=== PATIENT | female | born 1980 | race African-American/Black ===

== ENCOUNTER 2016-10-01 22:02 | Emergency (ER) | payer MEDICARE ==
[~2016-10-01 22:02] MED LIST: TRAM50TA2 PO; TYLE325T5 PO
[2016-10-01 23:20] LABS: BASO % 0.4 % (0.0-1.0); EOS # 0.3 K/mm3 (0.0-0.50); EOS % 2.6 % (0.0-3.0); LARGE UNSTAINED CELL # 0.2 K/mm3 (0.0-0.4); LARGE UNSTAINED CELL % 2.1 % (0.0-4.0); LYMPH # 4.4 K/mm3 (1.5-4.5); LYMPH % 38.8 % (24.0-44.0); MEAN CORPUSCULAR HEMOGLOBIN 28.1 pg (27.0-33.0); MEAN CORPUSCULAR HGB CONC 31.4 g/dl (32.0-36.5); MEAN CORPUSCULAR VOLUME 89.4 fl (80.0-96.0); MONO # 0.6 K/mm3 (0.0-0.8); MONO % 5.2 % (0.0-5.0); NEUTROPHILS # 5.5 K/mm3 (1.8-7.7); NEUTROPHILS % 50.9 % (36.0-66.0); PLATELET COUNT, AUTOMATED 395 k/mm3 (150-450); RED CELL DISTRIBUTION WIDTH 14.5 % (11.5-14.5); WHITE BLOOD COUNT 10.9 K/mm3 (4.0-10.0)
[2016-10-02] MEDS ORDERED: MORPHINE 4 MG/ML 1ML SYRINGE As Ordered ONE ×2 (00:01→01:48)
[2016-10-02] MEDS ORDERED: ONDANSETRON 4 MG ORAL DISINTEGRATING TAB (S0181) As Ordered ONE (00:01)
[2016-10-02 00:11] LABS: CONTROL LINE HCG INT CTR LINE PRESENT
[2016-10-02 00:21] LABS: ANION GAP 5 MEQ/L (8-16); BLOOD UREA NITROGEN 11 MG/DL (7-18); CALCIUM LEVEL 8.6 MG/DL (8.5-10.1); CARBON DIOXIDE LEVEL 28 MEQ/L (21-32); CHLORIDE LEVEL 104 MEQ/L (98-107); CREATININE FOR GFR 0.68 MG/DL (0.55-1.02); GLOMERULAR FILTRATION RATE > 60.0 (>60); GLUCOSE, FASTING 83 MG/DL (70-105); POTASSIUM SERUM 3.6 MEQ/L (3.5-5.1); SODIUM LEVEL 137 MEQ/L (136-145)
[2016-10-02] MEDS ORDERED: ASPIRIN 81 MG CHEW TABLET As Ordered ONE (00:55)
[2016-10-02 00:58] LABS: ALBUMIN/GLOBULIN RATIO 0.59 (1.00-1.93); ALKALINE PHOSPHATASE 104 U/L (45-117); ALT/SGPT 16 U/L (12-78); AST/SGOT 12 U/L (15-37); BILIRUBIN,DIRECT < 0.1 MG/DL (0.0-0.2); BILIRUBIN,TOTAL 0.1 MG/DL (0.2-1.0); TOTAL PROTEIN 8.1 GM/DL (6.4-8.2)
--- NOTE | 2016-10-02 05:52 | EDDOCDS ---
Physician Documentation [facility] Name: Mira Schroeder Age: 35 yrs Sex: Female : 1980 Arrival Date: 10/01/2016 Time: 22:02 Bed 12 Private MD: Nabor Polanco G Disposition: 10/02/16 05:38 Discharged to Home/Self Care. Impression: Chest pain, unspecified. - Condition is Stable. - Discharge Instructions: Angina Pectoris, Nonspecific Chest Pain, Chest Wall Pain, Nonspecific Chest Pain, [id number]. - Medication Reconciliation, Local Pharmacy Hours form. - Follow up: Lawrence Moreno; When: Call to arrange an appointment; Reason: To establish care. - Problem is an acute exacerbation. - Symptoms have improved. Historical: - Allergies: Diamox; - Home Meds: 1. Ultram 50 mg Oral tab 1 tab as needed (Last dose: 10/01/2016 08:00) 2. Linzess 290 mcg oral cap 1 cap once daily (Last dose: 10/01/2016 08:00) 3. Chantix 1 mg Oral tab 1 tab 2 times per day - PMHx: NH; nerve damage; occipital neuralgia; Pseudo Tumor Cerebri; Constipation, Chronic; - PSHx: Spinal Tap; nerve decompression; - Social history: Smoking status: Patient uses tobacco products, light tobacco smoker. No barriers to communication noted, The patient speaks fluent Zimbabwean. - Family history: Mother has/had cardiac disorder, hypertension. - : The pt / caregiver states he / she is not on anticoagulants. Home medication list is obtained from the patient. - Exposure Risk Screening:: None identified. 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 4 in. (162.56 cm) (R); Pain 10/10; 23:12 BP 140 / 82 (auto/); mlc 23:14 Pulse 92 MON; Pulse Ox 96% ; mlc 23:26 Pulse 92 MON; Pulse Ox 99% ; mlc 23:26 BP 136 / 76 (auto/); mlc 23:41 Pulse 94 MON; Pulse Ox 99% ; mlc 23:41 BP 136 / 74 (auto/); mlc 23:56 BP 140 / 77 (auto/); mlc 23:56 Pulse 98 MON; Pulse Ox 99% ; mlc 10/02 00:08 Pulse 96 MON; Pulse Ox 98% ; mlc 00:24 Pulse 98 MON; Pulse Ox 99% ; mlc 00:24 BP 119 / 82 (auto/); mlc 00:41 BP 117 / 82 (auto/); mlc 00:41 Pulse 106 MON; Pulse Ox 99% ; mlc 00:56 Pulse 102 MON; Pulse Ox 98% ; mlc 01:11 BP 122 / 74 (auto/); mlc 01:11 Pulse 102 MON; Pulse Ox 97% ; mlc 01:41 BP 137 / 70 (auto/); mlc 01:41 Pulse 106 MON; Pulse Ox 97% ; mlc 01:43 Pulse 110 MON; Pulse Ox 99% ; mlc 02:11 BP 114 / 55 (auto/); mlc 02:11 Pulse 114 MON; Pulse Ox 96% ; mlc 02:34 BP 114 / 55; Pulse 106; Resp 16; Pain 0/10; mlc 02:41 BP 116 / 55 (auto/); mlc 02:41 Pulse 100 MON; Pulse Ox 97% ; mlc 03:11 BP 105 / 58 (auto/); mlc 03:14 Pulse 104 MON; Pulse Ox 92% ; mlc 03:41 BP 110 / 70 (auto/); mlc 03:41 Pulse 98 MON; Pulse Ox 92% ; mlc 04:11 BP 119 / 58 (auto/); mlc 04:11 Pulse 102 MON; Pulse Ox 93% ; mlc 04:41 BP 109 / 61 (auto/); mlc 04:41 Pulse 94 MON; Pulse Ox 95% ; mlc 04:58 Pulse 96 MON; Pulse Ox 95% ; mlc 05:11 BP 112 / 60 (auto/); mlc 05:12 Pulse 98 MON; Pulse Ox 99% ; mlc 05:48 BP 118 / 70; Pulse 92; Resp 18; Temp 98.1; Pulse Ox 96% ; Pain 0/10; mlc 10/01 22:03 Body Mass Index 36.05 (95.25 kg, 162.56 cm) gr2 MDM: 10/01 22:08 ECG WITH READING ER PHYS+CARDIAG ordered. EDMS 22:53 Director Personal/Pulse Ox/q 30 min VS ordered. mm11 22:53 IV Saline Lock ordered. mm11 22:53 Rhythm Strip to chart ordered. mm11 22:53 Undress patient appropriately for examination ordered. mm11 22:54 Basic Metabolic Profile Ordered. EDMS 22:54 CBC with Diff Ordered. EDMS 22:54 Cardiac Injury Profile Ordered. EDMS 22:54 D-Dimer Quant Ordered. EDMS 22:54 Troponin Ordered. EDMS 22:54 Chest, 2 View (pa\E\lat) Ordered. EDMS 22:55 HCG,Serum Qualitative Ordered. EDMS 23:03 Misc Blind Eyeletter Order ordered. mm11 23:03 Misc Blind Eyeletter Order complete. ml3 23:04 The patient was assigned to Observation Status due to uncertainty of mm11 diagnosis/disposition, and remained under my care. 23:57 CBC with Diff Reviewed. mm11 23:57 D-Dimer Quant Reviewed. mm11 23:58 morphine 4 mg IVP every 30 minutes; Document pain score/vitals after each dose (Hold if mm11 SBP < 90mmHg) x2 ordered. 23:58 Ondansetron 4 mg IVP once ordered. mm11 23:59 Ondansetron ODT Oral Disintegrating Tablet 4 mg PO once ordered. mm11 23:59 morphine 4 mg IM once ordered. mm11 0218 00:32 Basic Metabolic Profile Reviewed. mm11 00:32 Cardiac Injury Profile Reviewed. mm11 00:32 Troponin Reviewed. mm11 00:32 HCG,Serum Qualitative Reviewed. mm11 00:34 Aspirin 324 mg PO once ordered. mm11 01:06 Financial registration complete. hs2 01:18 Basic Metabolic Profile Reviewed. mm11 01:18 LIVER PROFILE Reviewed. mm11 01:18 Cardiac Injury Profile Reviewed. mm11 01:18 Troponin Reviewed. mm11 01:18 LIPASE Reviewed. mm11 01:44 morphine 4 mg IVP every 30 minutes; Document pain score/vitals after each dose (Hold if mm11 SBP < 90mmHg) x2 ordered. 01:55 Redraw CIP &Troponin (put time in details section) ordered. mm11 01:55 Repeat EKG (put time details section) ordered. mm11 01:58 Repeat EKG (put time details section) complete. ml3 01:58 Redraw CIP &Troponin (put time in details section) complete. ml3 01:59 CARDIAC MARKER PANEL Ordered. EDMS 02:00 ECG WITH READING ER PHYS ordered. EDMS 02:17 [facility] Payment Agreement was scanned into [employer] and attached to record. [facility] 05:30 CARDIAC MARKER PANEL Reviewed. mm11 Administered Medications: 10/01 23:58 Not Given (Other Intervention Used): morphine 4 mg IVP every 30 minutes; Document pain mm11 score/vitals after each dose (Hold if SBP < 90mmHg) x2 23:58 Not Given (Other Intervention Used): Ondansetron 4 mg IVP once mm11 10/02 00:08 Drug: Ondansetron ODT 4 mg [ondansetron 4 mg disintegrating tablet (1 tabs)] Route: PO; [facility] 00:08 Drug: morphine 4 mg [morphine 4 mg/mL intravenous cartridge (1 mL)] Route: IM; Site: [facility] left deltoid; 00:57 Drug: Aspirin 324 mg [aspirin 81 mg chewable tablet (4 tabs)] Route: PO; [facility] 01:53 Drug: morphine 4 mg [morphine 4 mg/mL intravenous cartridge (1 mL)] Route: IVP; Site: [facility] left hand; 02:34 Follow up: BP 114 / 55; Pulse 106 bpm; Resp 16 bpm; Pain 0/10 Adult; Response: Pain is mlc resolved Signatures: Dispatcher [employer] EDMS Carine Hendricks RN RN [facility] Aldair Silva, Supervisor [employer] ml3 Edis Kaur, DO DO mm11 Pita Joe RN RN [facility] Laurel Hinton [facility] Rea Hernandez, Reg Reg hs2 The chart was reviewed and I authenticate all verbal orders and agree with the evaluation and treatment provided.Corrections: (The following items were deleted from the chart) 00:47 00:34 LIPASE+LAB ordered. EDMS EDMS 00:47 00:34 LIVER PROFILE+LAB ordered. EDMS EDMS Attachments: 02:17 [facility] Payment Agreement [facility] MTDD
--- NOTE | 2016-10-02 05:52 | EDDOCDS ---
Nurse's Notes [facility] Name: Mira Schroeder Age: 35 yrs Sex: Female : 1980 Arrival Date: 10/01/2016 Time: 22:02 Bed 12 Private MD: Nabor Polanco G Diagnosis: Chest pain, unspecified Presentation: 10/01 22:07 Red Flag criteria, patient assessed and taken directly to a bed. cz 22:08 Presenting complaint: Patient states: Chest pain that started while pt was at work. mcp Pain in center of chest and radiates down left arm--tightness, sharp pain. Aspirin was not taken prior to arrival. Adult Sepsis Screening: The patient does not have new or worsening altered mentation. Patient's respiratory rate is less than 22. Systolic blood pressure is greater than 100. Patient has a qSOFA score of 0- Negative Sepsis Screen. Suicide/Homicide risk assessment- the patient denies having any suicidal and/or homicidal ideations and does not present with any other emotional, behavioral or mental health complaints. Status: Patient is not a legal services manager or dependent. Transition of care: patient was not received from another setting of care. 22:08 Acuity: YANETH Level 2 [facility] 22:08 Method Of Arrival: Walkin/Carried/Asstd [facility] Triage Assessment: 22:12 General: Appears uncomfortable, Behavior is cooperative. Pain: Location: chest Pain mcp currently is 10 out of 10 on a pain scale. HIV screening NA for this visit Offered previously. Neurological: Reports dizziness. Cardiovascular: Chest pain is described as severe, quality is sharp radiates to left arm(s) episodes are continuous began 2 hours prior to arrival. Respiratory: Airway is patent Respiratory effort is even, unlabored. Derm: Skin is normal. 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 Ultram 50 mg Oral tab 1 tab as needed (Last dose: 10/01/2016 08:00) 2. Linzess 290 mcg oral cap 1 cap once daily (Last dose: 10/01/2016 08:00) 3. Chantix 1 mg Oral tab 1 tab 2 times per day - PMHx: OR; nerve damage; occipital neuralgia; Pseudo Tumor Cerebri; Constipation, Chronic; - PSHx: Spinal Tap; nerve decompression; - Social history: Smoking status: Patient uses tobacco products, light tobacco smoker. No barriers to communication noted, The patient speaks fluent Albanian. - Family history: Mother has/had cardiac disorder, hypertension. - : The pt / caregiver states he / she is not on anticoagulants. Home medication list is obtained from the patient. - Exposure Risk Screening:: None identified. Screenin:14 Screening information is obtained from the patient. Fall risk: No risks identified. mlc Assistance ADL's: requires no assistance with activities of daily living. Abuse/DV Screen: The patient / caregiver reports he/she is: not in a situation that causes fear, pain or injury. Nutritional screening: No deficits noted. Advance Directives: Currently, there is no health care proxy. There is no Power of Softball Core Molder. home support is adequate. Assessment: 22:20 General: Appears in no apparent distress, comfortable, Behavior is cooperative. mlc Neurological: Level of Consciousness is awake, alert, obeys commands, Oriented to person, place, time. Cardiovascular: Capillary refill < 3 seconds Heart tones S1 S2 present Rhythm is sinus rhythm. Respiratory: Airway is patent Respiratory effort is even, unlabored, Respiratory pattern is regular, Breath sounds are clear bilaterally. Derm: Skin is pink, warm & dry. 22:20 Reassessment: Patient appears in no apparent distress at this time. Patient states mlc symptoms have not improved. unable to get IV access at this time. . 18 00:08 Reassessment: Patient appears in no apparent distress at this time. pt c/o headache, mlc chest pain and right ear pain. Dr. Kaur made aware. pt medicated per order. lights dimmed for comfort. . 00:34 Reassessment: Patient appears in no apparent distress at this time. Patient states mlc feeling better. 00:57 Reassessment: Patient appears in no apparent distress at this time. pt medicated per mlc order. pt eating Diana Orta, Dr. Kaur made aware. resp easy/unlabored. . 01:44 Reassessment: Patient appears in no apparent distress at this time. pt rated 8/10 in mlc chest. resp easy/unlabored. pt resting comfortably, lights dimmed for comfort. . 01:54 Reassessment: Patient appears in no apparent distress at this time. pt medicated per mlc order. 02:35 Reassessment: Patient appears in no apparent distress at this time. Patient denies pain mlc at this time. pt resting comfortably, resp easy/unlabored. . 03:37 General: Appears in no apparent distress, comfortable, to be sleeping. Respiratory: mlc Airway is patent Respiratory effort is even, unlabored, Respiratory pattern is regular. 05:00 Reassessment: Patient appears in no apparent distress at this time. Patient denies pain mlc at this time. pt offers no complaints. resp easy/unlabored. . Cardiovascular: Rhythm is sinus rhythm. 05:48 General: Appears in no apparent distress, comfortable, Behavior is cooperative. Pain: mlc Denies pain. Neurological: Level of Consciousness is awake, alert, Oriented to person, place, time. Respiratory: Airway is patent Respiratory effort is even, unlabored, Respiratory pattern is regular. Derm: Skin is pink, warm & dry. Vital Signs: 10/01 22:03 BP 133 / 81; Pulse 107; Resp 18 S; Temp 97.9(O); Pulse Ox 100% ; Weight 95.25 kg (R); gr2 Height 5 ft. 4 in. (162.56 cm) (R); Pain 10/10; 23:12 BP 140 / 82 (auto/); mlc 23:14 Pulse 92 MON; Pulse Ox 96% ; mlc 23:26 Pulse 92 MON; Pulse Ox 99% ; mlc 23:26 BP 136 / 76 (auto/); mlc 23:41 Pulse 94 MON; Pulse Ox 99% ; mlc 23:41 BP 136 / 74 (auto/); mlc 23:56 BP 140 / 77 (auto/); mlc 23:56 Pulse 98 MON; Pulse Ox 99% ; mlc 10/02 00:08 Pulse 96 MON; Pulse Ox 98% ; mlc 00:24 Pulse 98 MON; Pulse Ox 99% ; mlc 00:24 BP 119 / 82 (auto/); mlc 00:41 BP 117 / 82 (auto/); mlc 00:41 Pulse 106 MON; Pulse Ox 99% ; mlc 00:56 Pulse 102 MON; Pulse Ox 98% ; mlc 01:11 BP 122 / 74 (auto/); mlc 01:11 Pulse 102 MON; Pulse Ox 97% ; mlc 01:41 BP 137 / 70 (auto/); mlc 01:41 Pulse 106 MON; Pulse Ox 97% ; mlc 01:43 Pulse 110 MON; Pulse Ox 99% ; mlc 02:11 BP 114 / 55 (auto/); mlc 02:11 Pulse 114 MON; Pulse Ox 96% ; mlc 02:34 BP 114 / 55; Pulse 106; Resp 16; Pain 0/10; mlc 02:41 BP 116 / 55 (auto/); mlc 02:41 Pulse 100 MON; Pulse Ox 97% ; mlc 03:11 BP 105 / 58 (auto/); mlc 03:14 Pulse 104 MON; Pulse Ox 92% ; mlc 03:41 BP 110 / 70 (auto/); mlc 03:41 Pulse 98 MON; Pulse Ox 92% ; mlc 04:11 BP 119 / 58 (auto/); mlc 04:11 Pulse 102 MON; Pulse Ox 93% ; mlc 04:41 BP 109 / 61 (auto/); mlc 04:41 Pulse 94 MON; Pulse Ox 95% ; mlc 04:58 Pulse 96 MON; Pulse Ox 95% ; mlc 05:11 BP 112 / 60 (auto/); mlc 05:12 Pulse 98 MON; Pulse Ox 99% ; mlc 05:48 BP 118 / 70; Pulse 92; Resp 18; Temp 98.1; Pulse Ox 96% ; Pain 0/10; mlc 10/01 22:03 Body Mass Index 36.05 (95.25 kg, 162.56 cm) gr2 Vitals: 10/01 22:03 Log In Time: October 01, 2016 at 22:03. RN notified that patient meets Red Flag gr2 criteria. ED Course: 22:03 Patient visited by Rossy Aj. gr2 22:03 Nabor Polanco is Private Physician. gr2 22:03 Patient moved to Waiting gr2 22:06 Patient visited by Rossy Aj. gr2 22:06 Nia Lopez,RN is Primary Nurse. cz 22:06 Margy Augustine,RN is Primary Nurse. cz 22:06 Pita Joe,IRWIN is Primary Nurse. cz 22:06 Patient moved to 12 cz 22:07 Edis Kaur DO is Attending Physician. mm11 22:07 Patient visited by Eids Kaur DO. mm11 22:10 Triage Initiated mcp 22:14 Patient visited by Carine Hendricks RN. mcp 22:29 EKG done. (by ED staff). Reviewed by Edis Kaur DO. jmv 22:38 Primary Nurse role handed off by Nia Lopez RN kb5 22:52 Patient visited by Edis Kaur DO. mm11 23:10 Missed attempts: 20 gauge X 1 in left antecubital area, 22 gauge in right hand. aug 23:13 HCG,Serum Qualitative Sent. mlc 23:13 Basic Metabolic Profile Sent. mlc 23:13 CBC with Diff Sent. mlc 23:13 Cardiac Injury Profile Sent. mlc 23:13 D-Dimer Quant Sent. mlc 23:13 Troponin Sent. mlc 23:14 The patient / caregiver is instructed regarding the plan of care and ED course. Cardiac mlc monitor on. Pulse ox on. NIBP on. 23:17 Patient visited by Pita Joe RN. mlc 10/02 00:09 Patient visited by Pita Joe RN. mlc 00:10 Patient visited by Pita Joe RN. mlc 00:18 Inserted saline lock: 22 gauge in left hand The patient tolerated the procedure well. mlc by Jung Temple RN powersaw supervisor. 00:19 Patient visited by Pita Joe RN. mlc 00:58 Patient visited by Pita Joe RN. mlc 01:44 Patient visited by Edis Kaur DO. mm11 01:45 Patient visited by Pita Joe RN. mlc 01:54 Patient visited by Pita Joe RN. mlc 02:17 [facility] Payment Agreement was scanned into [employer] and attached to record. [facility] 02:29 Patient visited by Edis Kaur DO. mm11 02:35 Patient visited by Pita Joe RN. mlc 03:22 Primary Nurse role handed off by Margy Augustine,IRWIN cz 03:38 Patient visited by Pita oJe RN. mlc 05:01 Patient visited by Pita Joe RN. mlc 05:01 EKG done. (by ED staff). Reviewed by Edis Kaur DO. mlc 05:37 Patient visited by Edis Kaur DO. mm11 05:37 Lawrence Moreno is Referral Physician. mm11 05:48 Discontinued IV lock intact, bleeding controlled, pressure dressing applied, No mlc redness/swelling at site. No procedures done that require assistance. Administered Medications: 10/01 23:58 Not Given (Other Intervention Used): morphine 4 mg IVP every 30 minutes; Document pain mm11 score/vitals after each dose (Hold if SBP < 90mmHg) x2 23:58 Not Given (Other Intervention Used): Ondansetron 4 mg IVP once mm11 10/02 00:08 Drug: Ondansetron ODT 4 mg [ondansetron 4 mg disintegrating tablet (1 tabs)] Route: PO; [facility] 00:08 Drug: morphine 4 mg [morphine 4 mg/mL intravenous cartridge (1 mL)] Route: IM; Site: [facility] left deltoid; 00:57 Drug: Aspirin 324 mg [aspirin 81 mg chewable tablet (4 tabs)] Route: PO; [facility] 01:53 Drug: morphine 4 mg [morphine 4 mg/mL intravenous cartridge (1 mL)] Route: IVP; Site: [facility] left hand; 02:34 Follow up: BP 114 / 55; Pulse 106 bpm; Resp 16 bpm; Pain 0/10 Adult; Response: Pain is mlc resolved Order Results: Lab Order: Basic Metabolic Profile; SPEC'M 10/01/16 23:47 Test: GLUCOSE, FASTING; Value: 83; Range: 70-105; Units: MG/DL; Status: F Test: BLOOD UREA NITROGEN; Value: 11; Range: 7-18; Units: MG/DL; Status: F Test: CREATININE FOR GFR; Value: 0.68; Range: 0.55-1.02; Units: MG/DL; Status: F Test: GLOMERULAR FILTRATION RATE; Value: > 60.0; Range: >60; Status: F Test: SODIUM LEVEL; Value: 137; Range: 136-145; Units: MEQ/L; Status: F Test: POTASSIUM SERUM; Value: 3.6; Range: 3.5-5.1; Units: MEQ/L; Status: F Test: CHLORIDE LEVEL; Value: 104; Range: 98-107; Units: MEQ/L; Status: F Test: CARBON DIOXIDE LEVEL; Value: 28; Range: 21-32; Units: MEQ/L; Status: F Test: ANION GAP; Value: 5; Range: 8-16; Abnormal: Below low normal; Units: MEQ/L; Status: F Test: CALCIUM LEVEL; Value: 8.6; Range: 8.5-10.1; Units: MG/DL; Status: F Test Note: ; Units are mL/min/1.73 m2 Chronic Kidney Disease Staging per NKF: Stage I & II GFR >=60 Normal to Mildly Decreased Stage III GFR 30-59 Moderately Decreased Stage IV GFR 15-29 Severely Decreased Stage V GFR <15 Very Little GFR Left ESRD GFR <15 on BOROUGH COORDINATOR Lab Order: CBC with Diff; CHARU 10/01/16 23:11 Test: WHITE BLOOD COUNT; Value: 10.9; Range: 4.0-10.0; Abnormal: Above high normal; Units: K/mm3; Status: F Test: RED BLOOD COUNT; Value: 4.65; Range: 4.00-5.40; Units: M/mm3; Status: F Test: HEMOGLOBIN; Value: 13.0; Range: 12.0-16.0; Units: g/dl; Status: F Test: HEMATOCRIT; Value: 41.6; Range: 36.0-47.0; Units: %; Status: F Test: MEAN CORPUSCULAR VOLUME; Value: 89.4; Range: 80.0-96.0; Units: fl; Status: F Test: MEAN CORPUSCULAR HEMOGLOBIN; Value: 28.1; Range: 27.0-33.0; Units: pg; Status: F Test: MEAN CORPUSCULAR HGB CONC; Value: 31.4; Range: 32.0-36.5; Abnormal: Below low normal; Units: g/dl; Status: F Test: RED CELL DISTRIBUTION WIDTH; Value: 14.5; Range: 11.5-14.5; Units: %; Status: F Test: PLATELET COUNT, AUTOMATED; Value: 395; Range: 150-450; Units: k/mm3; Status: F Test: NEUTROPHILS %; Value: 50.9; Range: 36.0-66.0; Units: %; Status: F Test: LYMPH %; Value: 38.8; Range: 24.0-44.0; Units: %; Status: F Test: MONO %; Value: 5.2; Range: 0.0-5.0; Abnormal: Above high normal; Units: %; Status: F Test: EOS %; Value: 2.6; Range: 0.0-3.0; Units: %; Status: F Test: BASO %; Value: 0.4; Range: 0.0-1.0; Units: %; Status: F Test: LARGE UNSTAINED CELL %; Value: 2.1; Range: 0.0-4.0; Units: %; Status: F Test: NEUTROPHILS #; Value: 5.5; Range: 1.8-7.7; Units: K/mm3; Status: F Test: LYMPH #; Value: 4.4; Range: 1.5-4.5; Units: K/mm3; Status: F Test: MONO #; Value: 0.6; Range: 0.0-0.8; Units: K/mm3; Status: F Test: EOS #; Value: 0.3; Range: 0.0-0.50; Units: K/mm3; Status: F Test: BASO #; Value: 0.0; Range: 0.0-0.2; Units: K/mm3; Status: F Test: LARGE UNSTAINED CELL #; Value: 0.2; Range: 0.0-0.4; Units: K/mm3; Status: F Lab Order: Cardiac Injury Profile; [facility] 23:47 Test: CPK CREATINE PHOSPHOKINASE; Value: 128; Range: 26-192; Units: U/L; Status: F Test: CK-MB VALUE MASS; Value: 1.4; Range: 0.0-3.6; Units: NG/ML; Status: F Test: MB/CK RELATIVE INDEX; Value: 1.09; Range: < OR =4; Status: F Test Note: ; DIAGNOSIS CRITERIA MMB ng/ml Relative Index (RI) NON-AMI < or = 5 N/A MORGAN ZONE > 5 < or = 4 AMI > 5 > 4 Lab Order: D-Dimer Quant; [facility] 23:11 Test: D-DIMER QUANT; Value: 458.9; Range: <500; Units: ng/ml; Status: F Lab Order: Troponin; [facility]10/[facility] 23:47 Test: TROPONIN I; Value: < 0.02; Range: < 0.10; Units: NG/ML; Status: F Test Note: ; Troponin I Reference Interval for [employer] LOCI: 99th Percentile= 0.00-0.045 ng/ml Risk Stratification: <= 0.10 ng/ml Decreased Risk for Adverse Clinical Events. 0.10-1.50 ng/ml Increased Risk for Adverse Clinical Events. Evaluation of additional criterion and/or repeat testing in 2-6 hours is suggested to rule out myocardial damage. >= 1.50 ng/ml Indicative of Myocardial Injury. Lab Order: HCG,Serum Qualitative; 10/01/16 23:47 Test: HCG, SERUM QUALITATIVE; Value: NEGATIVE; Range: NEGATIVE; Status: F Lab Order: LIVER PROFILE; 10/01/16 23:47 Test: AST/SGOT; Value: 12; Range: 15-37; Abnormal: Below low normal; Units: U/L; Status: F Test: ALT/SGPT; Value: 16; Range: 12-78; Units: U/L; Status: F Test: ALKALINE PHOSPHATASE; Value: 104; Range: 45-117; Units: U/L; Status: F Test: BILIRUBIN,TOTAL; Value: 0.1; Range: 0.2-1.0; Abnormal: Below low normal; Units: MG/DL; Status: F Test: BILIRUBIN,DIRECT; Value: < 0.1; Range: 0.0-0.2; Units: MG/DL; Status: F Test: TOTAL PROTEIN; Value: 8.1; Range: 6.4-8.2; Units: GM/DL; Status: F Test: ALBUMIN; Value: 3.0; Range: 3.2-5.2; Abnormal: Below low normal; Units: GM/DL; Status: F Test: ALBUMIN/GLOBULIN RATIO; Value: 0.59; Range: 1.00-1.93; Abnormal: Below low normal; Status: F Lab Order: LIPASE; 10/01/16 23:47 Test: LIPASE; Value: 94; Range: 73-393; Units: U/L; Status: F Lab Order: CARDIAC MARKER PANEL; [facility] 04:52 Test: CPK CREATINE PHOSPHOKINASE; Value: 144; Range: 26-192; Units: U/L; Status: F Test: CK-MB VALUE MASS; Value: 1.0; Range: 0.0-3.6; Units: NG/ML; Status: F Test: MB/CK RELATIVE INDEX; Value: 0.69; Range: < OR =4; Status: F Test: TROPONIN I; Value: < 0.02; Range: < 0.10; Units: NG/ML; Status: F Test Note: ; DIAGNOSIS CRITERIA MMB ng/ml Relative Index (RI) NON-AMI < or = 5 N/A MORGAN ZONE > 5 < or = 4 AMI > 5 > 4 Outcome: 05:38 Discharge ordered by Provider. mm11 05:48 Discharge Assessment: Patient awake, alert and oriented x 3. No cognitive and/or mlc functional deficits noted. Patient verbalized understanding of disposition instructions. patient administered narcotics - yes. Pt provided with safe discharge. The following High Risk Discharge criteria are identified: None. Discharged to home ambulatory, with significant other. Condition: good Condition: stable Condition: improved. Discharge instructions given to patient, Instructed on discharge instructions, follow up and referral plans. Demonstrated understanding of instructions, Pt was receptive of discharge instructions/ teaching. No special radiology studies were completed. Property sent home with patient. 05:51 Patient left the ED. mlc Signatures: Brunilda Hernández, RN Carine Sharpe, RN Arpan Mays mcp, RN RN cz Bancroft, Kristopher, MASTER CONTROL ENGINEER MASTER CONTROL ENGINEER sandy5 Edis Kaur, DO mm11 Rossy Aj gr2 Pita Joe,IRWIN RN Laurel Jackson Crystal, MASTER CONTROL ENGINEER MASTER CONTROL ENGINEER cln Rui Bran, MASTER CONTROL ENGINEER MASTER CONTROL ENGINEER jmv Corrections: (The following items were deleted from the chart) 00:47 00:37 LIVER PROFILE+LAB sent. cln EDMS 00:47 00:37 LIPASE+LAB sent. cln EDMS 05:01 03:41 EKG done. (by ED staff). Reviewed by Edis Kaur DO mlc mlc MTDD
--- NOTE | 2016-10-02 08:10 | REP ---
Clinical: Chest pain . Comparison: None . Technique: PA and lateral. Findings: The mediastinum and cardiac silhouette are normal. The lung reddy are clear and without acute consolidation, effusion, or pneumothorax. The skeletal structures are intact and normal. Impression: 1. No acute cardiopulmonary process. Signed by Mason Rene MD 10/02/2016 08:02 A
--- NOTE | 2016-10-02 19:37 | ECGEPIP ---
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
--- NOTE | 2016-10-02 19:41 | ECGEPIP ---
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
--- NOTE | 2016-10-04 06:52 | EDDOCDS ---
Physician Documentation [facility] Name: Mira Schroeder Age: 35 yrs Sex: Female : 1980 Arrival Date: 10/01/2016 Time: 22:02 Bed 12 Private MD: Nabor Polanco G Disposition: 10/02/16 05:38 Discharged to Home/Self Care. Impression: Chest pain, unspecified. - Condition is Stable. - Discharge Instructions: Angina Pectoris, Nonspecific Chest Pain, Chest Wall Pain, Nonspecific Chest Pain, [id number]. - Medication Reconciliation, Local Pharmacy Hours form. - Follow up: Lawrence Moreno; When: Call to arrange an appointment; Reason: To establish care. - Problem is an acute exacerbation. - Symptoms have improved. Historical: - Allergies: Diamox; - Home Meds: 1. Ultram 50 mg Oral tab 1 tab as needed (Last dose: 10/01/2016 08:00) 2. Linzess 290 mcg oral cap 1 cap once daily (Last dose: 10/01/2016 08:00) 3. Chantix 1 mg Oral tab 1 tab 2 times per day - PMHx: AR; nerve damage; occipital neuralgia; Pseudo Tumor Cerebri; Constipation, Chronic; - PSHx: Spinal Tap; nerve decompression; - Social history: Smoking status: Patient uses tobacco products, light tobacco smoker. No barriers to communication noted, The patient speaks fluent Bruneian. - Family history: Mother has/had cardiac disorder, hypertension. - : The pt / caregiver states he / she is not on anticoagulants. Home medication list is obtained from the patient. - Exposure Risk Screening:: None identified. 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 4 in. (162.56 cm) (R); Pain 10/10; 23:12 BP 140 / 82 (auto/); mlc 23:14 Pulse 92 MON; Pulse Ox 96% ; mlc 23:26 Pulse 92 MON; Pulse Ox 99% ; mlc 23:26 BP 136 / 76 (auto/); mlc 23:41 Pulse 94 MON; Pulse Ox 99% ; mlc 23:41 BP 136 / 74 (auto/); mlc 23:56 BP 140 / 77 (auto/); mlc 23:56 Pulse 98 MON; Pulse Ox 99% ; mlc 10/02 00:08 Pulse 96 MON; Pulse Ox 98% ; mlc 00:24 Pulse 98 MON; Pulse Ox 99% ; mlc 00:24 BP 119 / 82 (auto/); mlc 00:41 BP 117 / 82 (auto/); mlc 00:41 Pulse 106 MON; Pulse Ox 99% ; mlc 00:56 Pulse 102 MON; Pulse Ox 98% ; mlc 01:11 BP 122 / 74 (auto/); mlc 01:11 Pulse 102 MON; Pulse Ox 97% ; mlc 01:41 BP 137 / 70 (auto/); mlc 01:41 Pulse 106 MON; Pulse Ox 97% ; mlc 01:43 Pulse 110 MON; Pulse Ox 99% ; mlc 02:11 BP 114 / 55 (auto/); mlc 02:11 Pulse 114 MON; Pulse Ox 96% ; mlc 02:34 BP 114 / 55; Pulse 106; Resp 16; Pain 0/10; mlc 02:41 BP 116 / 55 (auto/); mlc 02:41 Pulse 100 MON; Pulse Ox 97% ; mlc 03:11 BP 105 / 58 (auto/); mlc 03:14 Pulse 104 MON; Pulse Ox 92% ; mlc 03:41 BP 110 / 70 (auto/); mlc 03:41 Pulse 98 MON; Pulse Ox 92% ; mlc 04:11 BP 119 / 58 (auto/); mlc 04:11 Pulse 102 MON; Pulse Ox 93% ; mlc 04:41 BP 109 / 61 (auto/); mlc 04:41 Pulse 94 MON; Pulse Ox 95% ; mlc 04:58 Pulse 96 MON; Pulse Ox 95% ; mlc 05:11 BP 112 / 60 (auto/); mlc 05:12 Pulse 98 MON; Pulse Ox 99% ; mlc 05:48 BP 118 / 70; Pulse 92; Resp 18; Temp 98.1; Pulse Ox 96% ; Pain 0/10; mlc 10/01 22:03 Body Mass Index 36.05 (95.25 kg, 162.56 cm) gr2 MDM: 10/01 22:08 ECG WITH READING ER PHYS+CARDIAG ordered. EDMS 22:53 Abrasives Sales Representative/Pulse Ox/q 30 min VS ordered. mm11 22:53 IV Saline Lock ordered. mm11 22:53 Rhythm Strip to chart ordered. mm11 22:53 Undress patient appropriately for examination ordered. mm11 22:54 Basic Metabolic Profile Ordered. EDMS 22:54 CBC with Diff Ordered. EDMS 22:54 Cardiac Injury Profile Ordered. EDMS 22:54 D-Dimer Quant Ordered. EDMS 22:54 Troponin Ordered. EDMS 22:54 Chest, 2 View (pa\E\lat) Ordered. EDMS 22:55 HCG,Serum Qualitative Ordered. EDMS 23:03 Misc Grades 9 Through 12 Teacher Order ordered. mm11 23:03 Misc Grades 9 Through 12 Teacher Order complete. ml3 23:04 The patient was assigned to Observation Status due to uncertainty of mm11 diagnosis/disposition, and remained under my care. 23:57 CBC with Diff Reviewed. mm11 23:57 D-Dimer Quant Reviewed. mm11 23:58 morphine 4 mg IVP every 30 minutes; Document pain score/vitals after each dose (Hold if mm11 SBP < 90mmHg) x2 ordered. 23:58 Ondansetron 4 mg IVP once ordered. mm11 23:59 Ondansetron ODT Oral Disintegrating Tablet 4 mg PO once ordered. mm11 23:59 morphine 4 mg IM once ordered. mm11 0218 00:32 Basic Metabolic Profile Reviewed. mm11 00:32 Cardiac Injury Profile Reviewed. mm11 00:32 Troponin Reviewed. mm11 00:32 HCG,Serum Qualitative Reviewed. mm11 00:34 Aspirin 324 mg PO once ordered. mm11 01:06 Financial registration complete. hs2 01:18 Basic Metabolic Profile Reviewed. mm11 01:18 LIVER PROFILE Reviewed. mm11 01:18 Cardiac Injury Profile Reviewed. mm11 01:18 Troponin Reviewed. mm11 01:18 LIPASE Reviewed. mm11 01:44 morphine 4 mg IVP every 30 minutes; Document pain score/vitals after each dose (Hold if mm11 SBP < 90mmHg) x2 ordered. 01:55 Redraw CIP &Troponin (put time in details section) ordered. mm11 01:55 Repeat EKG (put time details section) ordered. mm11 01:58 Repeat EKG (put time details section) complete. ml3 01:58 Redraw CIP &Troponin (put time in details section) complete. ml3 01:59 CARDIAC MARKER PANEL Ordered. EDMS 02:00 ECG WITH READING ER PHYS ordered. EDMS 02:17 [facility] [place] Payment Agreement was scanned into [employer] and attached to record. [facility] 05:30 CARDIAC MARKER PANEL Reviewed. mm11 09:27 T-Sheet-- Draft Copy was scanned into [employer] and attached to record. gb 09:27 ECG/EKG was scanned into [employer] and attached to record. gb Administered Medications: 10/01 23:58 Not Given (Other Intervention Used): morphine 4 mg IVP every 30 minutes; Document pain mm11 score/vitals after each dose (Hold if SBP < 90mmHg) x2 23:58 Not Given (Other Intervention Used): Ondansetron 4 mg IVP once mm11 10/02 00:08 Drug: Ondansetron ODT 4 mg [ondansetron 4 mg disintegrating tablet (1 tabs)] [place]: [place] [facility] Drug: morphine 4 mg [morphine 4 mg/mL intravenous cartridge (1 mL)] Route: IM; [place] [facility]; 00:57 Drug: Aspirin 324 mg [aspirin 81 mg chewable tablet (4 tabs)] Route: [place] [facility] 01:53 Drug: morphine 4 mg [morphine 4 mg/mL intravenous cartridge (1 mL)] Route: IVP; [place] [facility]; 02:34 Follow up: BP 114 / 55; Pulse 106 bpm; Resp 16 bpm; Pain 0/10 Adult; Response: Pain is mlc resolved Signatures: Dispatcher [employer] EDVT Carine Hendricks RN RN [facility] Alma Maynard, Reg Reg Aldair Silva, Salesperson [employer] ml3 Edis Kaur, DO DO mm11 Pita Joe RN RN [facility] Laurel Hinton [facility] Rea Hernandez, Reg Reg hs2 The chart was reviewed and I authenticate all verbal orders and agree with the evaluation and treatment provided.Corrections: (The following items were deleted from the chart) 00:47 00:34 LIPASE+LAB ordered. EDMS EDMS 00:47 00:34 LIVER PROFILE+LAB ordered. EDMS EDMS Attachments: 02:17 [facility] [place] Payment Agreement [facility] 09:27 T-Sheet-- Draft Copy gb 09:27 ECG/EKG gb Chart Complete MTDD
--- NOTE | 2016-10-04 06:52 | EDDOCDS ---
Physician Documentation [facility] Name: Mira Schroeder Age: 35 yrs Sex: Female : 1980 Arrival Date: 10/01/2016 Time: 22:02 Bed 12 Private MD: Nabor Polanco G Disposition: 10/02/16 05:38 Discharged to Home/Self Care. Impression: Chest pain, unspecified. - Condition is Stable. - Discharge Instructions: Angina Pectoris, Nonspecific Chest Pain, Chest Wall Pain, Nonspecific Chest Pain, [id number]. - Medication Reconciliation, Local Pharmacy Hours form. - Follow up: Lawrence Moreno; When: Call to arrange an appointment; Reason: To establish care. - Problem is an acute exacerbation. - Symptoms have improved. Historical: - Allergies: Diamox; - Home Meds: 1. Ultram 50 mg Oral tab 1 tab as needed (Last dose: 10/01/2016 08:00) 2. Linzess 290 mcg oral cap 1 cap once daily (Last dose: 10/01/2016 08:00) 3. Chantix 1 mg Oral tab 1 tab 2 times per day - PMHx: [place]; nerve damage; occipital neuralgia; Pseudo Tumor Cerebri; Constipation, Chronic; - PSHx: Spinal Tap; nerve decompression; - Social history: Smoking status: Patient uses tobacco products, light tobacco smoker. No barriers to communication noted, The patient speaks fluent Niuean. - Family history: Mother has/had cardiac disorder, hypertension. - : The pt / caregiver states he / she is not on anticoagulants. Home medication list is obtained from the patient. - Exposure Risk Screening:: None identified. 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 4 in. (162.56 cm) (R); Pain 10/10; 23:12 BP 140 / 82 (auto/); mlc 23:14 Pulse 92 MON; Pulse Ox 96% ; mlc 23:26 Pulse 92 MON; Pulse Ox 99% ; mlc 23:26 BP 136 / 76 (auto/); mlc 23:41 Pulse 94 MON; Pulse Ox 99% ; mlc 23:41 BP 136 / 74 (auto/); mlc 23:56 BP 140 / 77 (auto/); mlc 23:56 Pulse 98 MON; Pulse Ox 99% ; mlc 10/02 00:08 Pulse 96 MON; Pulse Ox 98% ; mlc 00:24 Pulse 98 MON; Pulse Ox 99% ; mlc 00:24 BP 119 / 82 (auto/); mlc 00:41 BP 117 / 82 (auto/); mlc 00:41 Pulse 106 MON; Pulse Ox 99% ; mlc 00:56 Pulse 102 MON; Pulse Ox 98% ; mlc 01:11 BP 122 / 74 (auto/); mlc 01:11 Pulse 102 MON; Pulse Ox 97% ; mlc 01:41 BP 137 / 70 (auto/); mlc 01:41 Pulse 106 MON; Pulse Ox 97% ; mlc 01:43 Pulse 110 MON; Pulse Ox 99% ; mlc 02:11 BP 114 / 55 (auto/); mlc 02:11 Pulse 114 MON; Pulse Ox 96% ; mlc 02:34 BP 114 / 55; Pulse 106; Resp 16; Pain 0/10; mlc 02:41 BP 116 / 55 (auto/); mlc 02:41 Pulse 100 MON; Pulse Ox 97% ; mlc 03:11 BP 105 / 58 (auto/); mlc 03:14 Pulse 104 MON; Pulse Ox 92% ; mlc 03:41 BP 110 / 70 (auto/); mlc 03:41 Pulse 98 MON; Pulse Ox 92% ; mlc 04:11 BP 119 / 58 (auto/); mlc 04:11 Pulse 102 MON; Pulse Ox 93% ; mlc 04:41 BP 109 / 61 (auto/); mlc 04:41 Pulse 94 MON; Pulse Ox 95% ; mlc 04:58 Pulse 96 MON; Pulse Ox 95% ; mlc 05:11 BP 112 / 60 (auto/); mlc 05:12 Pulse 98 MON; Pulse Ox 99% ; mlc 05:48 BP 118 / 70; Pulse 92; Resp 18; Temp 98.1; Pulse Ox 96% ; Pain 0/10; mlc 10/01 22:03 Body Mass Index 36.05 (95.25 kg, 162.56 cm) gr2 MDM: 10/01 22:08 ECG WITH READING ER PHYS+CARDIAG ordered. 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 mm11 22:53 IV Saline Lock ordered. mm11 22:53 Rhythm Strip to chart ordered. mm11 22:53 Undress patient appropriately for examination ordered. mm11 22:54 Basic Metabolic Profile Ordered. EDMS 22:54 CBC with Diff Ordered. EDMS 22:54 Cardiac Injury Profile Ordered. EDMS 22:54 D-Dimer Quant Ordered. EDMS 22:54 Troponin Ordered. EDMS 22:54 Chest, 2 View (pa\E\lat) Ordered. EDMS 22:55 HCG,Serum Qualitative Ordered. EDMS 23:03 Misc Metrology Specialist Order ordered. mm11 23:03 Misc Metrology Specialist Order complete. ml3 23:04 The patient was assigned to Observation Status due to uncertainty of mm11 diagnosis/disposition, and remained under my care. 23:57 CBC with Diff Reviewed. mm11 23:57 D-Dimer Quant Reviewed. mm11 23:58 morphine 4 mg IVP every 30 minutes; Document pain score/vitals after each dose (Hold if mm11 SBP < 90mmHg) x2 ordered. 23:58 Ondansetron 4 mg IVP once ordered. mm11 23:59 Ondansetron ODT Oral Disintegrating Tablet 4 mg PO once ordered. mm11 23:59 morphine 4 mg IM once ordered. mm11 0218 00:32 Basic Metabolic Profile Reviewed. mm11 00:32 Cardiac Injury Profile Reviewed. mm11 00:32 Troponin Reviewed. mm11 00:32 HCG,Serum Qualitative Reviewed. mm11 00:34 Aspirin 324 mg PO once ordered. mm11 01:06 Financial registration complete. hs2 01:18 Basic Metabolic Profile Reviewed. mm11 01:18 LIVER PROFILE Reviewed. mm11 01:18 Cardiac Injury Profile Reviewed. mm11 01:18 Troponin Reviewed. mm11 01:18 LIPASE Reviewed. mm11 01:44 morphine 4 mg IVP every 30 minutes; Document pain score/vitals after each dose (Hold if mm11 SBP < 90mmHg) x2 ordered. 01:55 Redraw CIP &Troponin (put time in details section) ordered. mm11 01:55 Repeat EKG (put time details section) ordered. mm11 01:58 Repeat EKG (put time details section) complete. ml3 01:58 Redraw CIP &Troponin (put time in details section) complete. ml3 01:59 CARDIAC MARKER PANEL Ordered. EDMS 02:00 ECG WITH READING ER PHYS ordered. EDMS 02:17 [facility] Payment Agreement was scanned into [employer] and attached to record. [facility] 05:30 CARDIAC MARKER PANEL Reviewed. mm11 09:27 T-Sheet-- Draft Copy was scanned into [employer] and attached to record. gb 09:27 ECG/EKG was scanned into [employer] and attached to record. gb Administered Medications: 10/01 23:58 Not Given (Other Intervention Used): morphine 4 mg IVP every 30 minutes; Document pain mm11 score/vitals after each dose (Hold if SBP < 90mmHg) x2 23:58 Not Given (Other Intervention Used): Ondansetron 4 mg IVP once mm11 10/02 00:08 Drug: Ondansetron ODT 4 mg [ondansetron 4 mg disintegrating tablet (1 tabs)] Route: PO; [facility] [place] 00:08 Drug: morphine 4 mg [morphine 4 mg/mL intravenous cartridge (1 mL)] Route: IM; Site: [facility] [place] left deltoid; 00:57 Drug: Aspirin 324 mg [aspirin 81 mg chewable tablet (4 tabs)] Route: PO; [facility] 01:53 Drug: morphine 4 mg [morphine 4 mg/mL intravenous cartridge (1 mL)] Route: IVP; Site: [facility] [place] left hand; 02:34 Follow up: BP 114 / 55; Pulse 106 bpm; Resp 16 bpm; Pain 0/10 Adult; Response: Pain is mlc resolved Signatures: Dispatcher [employer] EDMI Carine Hendricks RN RN [facility] Alma Maynard, Reg Reg Aldair Silva, Lamp Cleaner [employer] ml3 Edis Kaur, DO DO mm11 Pita Joe RN RN [facility] [place] Laurel Hinton [facility] Rea Hernandez, Reg Reg hs2 The chart was reviewed and I authenticate all verbal orders and agree with the evaluation and treatment provided.Corrections: (The following items were deleted from the chart) 00:47 00:34 LIPASE+LAB ordered. EDMS EDMS 00:47 00:34 LIVER PROFILE+LAB ordered. EDMS EDMS Attachments: 02:17 [facility] Payment Agreement [facility] 09:27 T-Sheet-- Draft Copy gb 09:27 ECG/EKG gb Chart Complete MTDD
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
== END 2016-10-02 05:51 | disposition home or self-care (01) ==
LOC: M ED 22:02
DX: R07.89 Other chest pain (principal); I25.2 Old myocardial infarction; G93.2 Benign intracranial hypertension; M54.81 Occipital neuralgia; Z72.0 Tobacco use; Z79.899 Other long term (current) drug therapy; Z88.8 Allergy status to other drugs, medicaments and biological substances

== ENCOUNTER 2016-11-05 23:04 | Emergency (ER) | payer MEDICAID, MEDICARE ==
[~2016-11-05] VITALS: Ht 162.6 cm; Wt 95.3 kg
[2016-11-05] MEDS ORDERED: VARE1TA PO (23:20)
[2016-11-05] MEDS ORDERED: LINZ290C PO (23:20)
[2016-11-06] MEDS ORDERED: AUGM875T27 PO (01:50)
[2016-11-06 01:56] VITALS: BP 146/78
[2016-11-06] MEDS ORDERED: AUGMENTIN 875 MG TAB PO ONE (02:00)
== END 2016-11-06 01:57 | disposition home or self-care (01) ==
LOC: M ED 11-06 00:51
DX: H66.91 Otitis media, unspecified, right ear (principal); G93.2 Benign intracranial hypertension; F17.210 Nicotine dependence, cigarettes, uncomplicated; Z79.899 Other long term (current) drug therapy; Z91.011 Allergy to milk products; Z88.8 Allergy status to other drugs, medicaments and biological substances

== ENCOUNTER 2017-03-17 22:48 | Emergency (ER) | payer MEDICAID, MEDICARE ==
[~2017-03-17] VITALS: Ht 162.6 cm; Wt 90.9 kg
[~2017-03-17 22:48] MED LIST changes: +AUGM875T28 PO; +LINZ290C PO; +VARE1TA PO
[2017-03-17 22:49] VITALS: BP 142/77
[2017-03-17] MEDS ORDERED: NORCO, ANEXSIA 5/325MG TABLET (HYDROcodone/ACETAMINOPHEN) PO ONE (23:45)
[2017-03-17] MEDS ORDERED: NAPR500T PO (23:59)
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
== END 2017-03-18 00:23 | disposition home or self-care (01) ==
LOC: M ED 22:48
DX: S93.492A Sprain of other ligament of left ankle, initial encounter (principal); X50.9XXA Other and unspecified overexertion or strenuous movements or postures, initial encounter; Y92.019 Unspecified place in single-family (private) house as the place of occurrence of the external cause; Y93.9 Activity, unspecified; Y99.8 Other external cause status; E66.9 Obesity, unspecified; F17.200 Nicotine dependence, unspecified, uncomplicated; Z79.899 Other long term (current) drug therapy; Z91.011 Allergy to milk products; Z88.8 Allergy status to other drugs, medicaments and biological substances

== ENCOUNTER → 2017-06-28 | Outpatient (REF) | payer MEDICARE ==
[~2017-06-28] MED LIST changes: +NAPR500T PO
[2017-06-28 17:37] LABS: MEAN CORPUSCULAR HEMOGLOBIN 28.9 pg (27.0-33.0); MEAN CORPUSCULAR HGB CONC 32.5 g/dl (32.0-36.5); MEAN CORPUSCULAR VOLUME 88.8 fl (80.0-96.0); PLATELET COUNT, AUTOMATED 398 10^3/uL (150-450); RED CELL DISTRIBUTION WIDTH 16.5 % (11.5-14.5); WHITE BLOOD COUNT 10.2 10^3/uL (4.0-10.0)
[2017-06-28 17:43] LABS: FREE T4 1.18 NG/DL (0.76-1.46); HCG, SERUM QUANTITATIVE 410 MIU/ML
[2017-06-29 14:30] LABS: HBsAg Prenatal NEGATIVE (NEGATIVE)
== END ==
LOC: M LAB REF 16:25
PROVIDERS: ATTEND Obstetrics & Gynecology
DX: O36.80X9 Pregnancy with inconclusive fetal viability, other fetus (principal); Z36.9 Encounter for antenatal screening, unspecified; O99.280 Endocrine, nutritional and metabolic diseases complicating pregnancy, unspecified trimester; O99.210 Obesity complicating pregnancy, unspecified trimester; E66.9 Obesity, unspecified

== ENCOUNTER → 2017-07-11 | Outpatient (REF) | payer MEDICARE | LOC: M LAB REF 13:34 | PROVIDERS: ATTEND Obstetrics & Gynecology | DX: O36.80X0 Pregnancy with inconclusive fetal viability, not applicable or unspecified (principal); Z3A.00 Weeks of gestation of pregnancy not specified ==

== ENCOUNTER 2017-07-30 11:29 | Emergency (ER) | payer MEDICARE ==
[~2017-07-30] VITALS: Ht 162.6 cm; Wt 100.0 kg
[2017-07-30 11:29] VITALS: BP 133/77
[2017-07-30] MEDS ORDERED: FLUTISP (11:42)
[2017-07-30] MEDS ORDERED: PREP1TAB3 (11:42)
[2017-07-30] MEDS ORDERED: HYDR-3713 (11:42)
[2017-07-30] MEDS ORDERED: ATEN50TA2 (11:42)
[2017-07-30] MEDS ORDERED: CETI10TA (11:42)
== END 2017-07-30 13:49 | disposition left against medical advice (07) ==
LOC: M ED 11:29
DX: Z53.21 Procedure and treatment not carried out due to patient leaving prior to being seen by health care provider (principal)

== ENCOUNTER 2017-11-02 21:39 | Outpatient (CLI) | payer MEDICARE ==
[2017-11-02 23:22] LABS: APPEARANCE, URINE CLOUDY (CLEAR); BACTERIA, URINE AUTO NEGATIVE (NEGATIVE); BILIRUBIN, URINE AUTO NEGATIVE (NEGATIVE); BLOOD, URINE BLOOD NEGATIVE (NEGATIVE); COLOR, URINE YELLOW (YELLOW); GLUCOSE, URINE (UA) AUTO NEGATIVE (NEGATIVE); KETONE, URINE AUTO 1+ mg/dL (NEGATIVE); LEUKOCYTE ESTERASE, URINE AUTO TRACE (NEGATIVE); MUCUS, URINE SMALL (NEGATIVE); NITRITE, URINE AUTO NEGATIVE (NEGATIVE); PROTEIN, URINE AUTO NEGATIVE (NEGATIVE); RBC, URINE AUTO 1 /HPF (0-3); SPECIFIC GRAVITY URINE AUTO 1.027 (1.002-1.035); SQUAMOUS EPITHELIAL CELL UR AU 8 /HPF (0-6); WBC, URINE AUTO 2 /HPF (0-3)
[2017-11-02 23:24] LABS: BASO % 0.2 % (0.0-1.0); EOS # 0.2 10^3/uL (0.0-0.50); EOS % 1.3 % (0.0-3.0); HEMOGLOBIN 11.2 g/dl (12.0-16.0); IMMATURE GRANULOCYTE % 0.3 % (0-3.0); LYMPH % 31.2 % (24.0-44.0); MEAN CORPUSCULAR HEMOGLOBIN 28.9 pg (27.0-33.0); MEAN CORPUSCULAR HGB CONC 32.9 g/dl (32.0-36.5); MEAN CORPUSCULAR VOLUME 87.6 fl (80.0-96.0); MONO % 7.5 % (0.0-5.0); NEUTROPHILS # 7.6 10^3/uL (1.8-7.7); NEUTROPHILS % 59.5 % (36.0-66.0); PLATELET COUNT, AUTOMATED 445 10^3/uL (150-450); RED BLOOD COUNT 3.88 10^6/uL (4.00-5.40); RED CELL DISTRIBUTION WIDTH 13.6 % (11.5-14.5); WHITE BLOOD COUNT 12.8 10^3/uL (4.0-10.0)
[2017-11-02 23:47] LABS: ALBUMIN 2.9 GM/DL (3.2-5.2); ALBUMIN/GLOBULIN RATIO 0.58 (1.00-1.93); ALKALINE PHOSPHATASE 113 U/L (45-117); ALT/SGPT 16 U/L (12-78); ANION GAP 9 MEQ/L (8-16); AST/SGOT 14 U/L (7-37); BILIRUBIN,TOTAL 0.2 MG/DL (0.2-1.0); BLOOD UREA NITROGEN 5 MG/DL (7-18); CALCIUM LEVEL 9.4 MG/DL (8.5-10.1); CARBON DIOXIDE LEVEL 23 MEQ/L (21-32); CHLORIDE LEVEL 104 MEQ/L (98-107); CREATININE FOR GFR 0.47 MG/DL (0.55-1.30); GLOMERULAR FILTRATION RATE > 60.0 (>60); GLUCOSE, FASTING 76 MG/DL (70-100); POTASSIUM SERUM 3.7 MEQ/L (3.5-5.1); SODIUM LEVEL 136 MEQ/L (136-145); TOTAL PROTEIN 7.9 GM/DL (6.4-8.2)
== END 2017-11-03 08:55 | disposition home or self-care (01) ==
LOC: M LDO 21:39
DX: O99.89 Other specified diseases and conditions complicating pregnancy, childbirth and the puerperium (principal); Z3A.23 23 weeks gestation of pregnancy; R11.2 Nausea with vomiting, unspecified; E86.0 Dehydration
CPT/HCPCS: 80053

== ENCOUNTER 2017-11-05 16:07 | Outpatient (CLI) | payer MEDICARE ==
[2017-11-05] MEDS: LACTATED RINGER'S 1000 ML IV (17:20)
[2017-11-05 17:46] LABS: HEMATOCRIT 31.3 % (36.0-47.0); HEMOGLOBIN 10.5 g/dl (12.0-16.0); MEAN CORPUSCULAR HEMOGLOBIN 29.2 pg (27.0-33.0); MEAN CORPUSCULAR HGB CONC 33.5 g/dl (32.0-36.5); MEAN CORPUSCULAR VOLUME 86.9 fl (80.0-96.0); PLATELET COUNT, AUTOMATED 411 10^3/uL (150-450); RED CELL DISTRIBUTION WIDTH 13.3 % (11.5-14.5); WHITE BLOOD COUNT 12.1 10^3/uL (4.0-10.0)
[2017-11-05 18:08] LABS: APPEARANCE, URINE HAZY (CLEAR); BACTERIA, URINE AUTO NEGATIVE (NEGATIVE); BILIRUBIN, URINE AUTO NEGATIVE (NEGATIVE); BLOOD, URINE BLOOD NEGATIVE (NEGATIVE); COLOR, URINE AMBER (YELLOW); GLUCOSE, URINE (UA) AUTO NEGATIVE (NEGATIVE); KETONE, URINE AUTO 2+ mg/dL (NEGATIVE); LEUKOCYTE ESTERASE, URINE AUTO TRACE (NEGATIVE); MUCUS, URINE SMALL (NEGATIVE); NITRITE, URINE AUTO NEGATIVE (NEGATIVE); PROTEIN, URINE AUTO 1+ mg/dL (NEGATIVE); RBC, URINE AUTO 1 /HPF (0-3); SPECIFIC GRAVITY URINE AUTO 1.029 (1.002-1.035); SQUAMOUS EPITHELIAL CELL UR AU 6 /HPF (0-6); WBC, URINE AUTO 4 /HPF (0-3)
[2017-11-05] MEDS: MULTIVITAMIN -ADULT INJECTION 10 ML, THIAMINE INJection 100 MG, FOLIC ACID 1 MG in NS 1... IV (18:22)
[2017-11-05] MEDS: OMEPRAZOLE 20 MG CAP PO (18:23)
[2017-11-05 19:03] LABS: ALBUMIN 2.2 GM/DL (3.2-5.2); ALBUMIN/GLOBULIN RATIO 0.47 (1.00-1.93); ALKALINE PHOSPHATASE 94 U/L (45-117); ALT/SGPT 12 U/L (12-78); ANION GAP 8 MEQ/L (8-16); AST/SGOT 12 U/L (7-37); BILIRUBIN,TOTAL 0.2 MG/DL (0.2-1.0); BLOOD UREA NITROGEN 5 MG/DL (7-18); CALCIUM LEVEL 8.7 MG/DL (8.5-10.1); CARBON DIOXIDE LEVEL 23 MEQ/L (21-32); CHLORIDE LEVEL 106 MEQ/L (98-107); CREATININE FOR GFR 0.45 MG/DL (0.55-1.30); FREE T4 1.13 NG/DL (0.76-1.46); GLOMERULAR FILTRATION RATE > 60.0 (>60); GLUCOSE, FASTING 93 MG/DL (70-100); POTASSIUM SERUM 3.6 MEQ/L (3.5-5.1); SODIUM LEVEL 137 MEQ/L (136-145); TOTAL PROTEIN 6.9 GM/DL (6.4-8.2)
[2017-11-05] MEDS: ONDANSETRON 4MG/2ML VIAL (J2405) IV ×2 (19:28→22:46)
== END 2017-11-05 23:40 | disposition home or self-care (01) ==
LOC: M LDO 16:07
DX: O21.2 Late vomiting of pregnancy (principal); O99.352 Diseases of the nervous system complicating pregnancy, second trimester; G93.2 Benign intracranial hypertension; O99.322 Drug use complicating pregnancy, second trimester; Z79.899 Other long term (current) drug therapy; Z3A.23 23 weeks gestation of pregnancy
CPT/HCPCS: J2405

== ENCOUNTER → 2017-11-28 | Outpatient (CLI) | payer MEDICARE, MEDICAID ==
[2017-11-28 16:51] LABS: HEMATOCRIT 30.4 % (36.0-47.0); MEAN CORPUSCULAR HEMOGLOBIN 28.6 pg (27.0-33.0); MEAN CORPUSCULAR HGB CONC 32.9 g/dl (32.0-36.5); MEAN CORPUSCULAR VOLUME 86.9 fl (80.0-96.0); PLATELET COUNT, AUTOMATED 505 10^3/uL (150-450); RED CELL DISTRIBUTION WIDTH 13.8 % (11.5-14.5); WHITE BLOOD COUNT 13.1 10^3/uL (4.0-10.0)
[2017-11-28 17:17] LABS: GLUCOSE CHALLENGE TEST 1 HOUR 119 MG/DL (LESS THAN 140)
== END ==
LOC: M LAB 15:37
DX: O09.892 Supervision of other high risk pregnancies, second trimester (principal); Z3A.23 23 weeks gestation of pregnancy
CPT/HCPCS: 82950

== ENCOUNTER 2018-01-17 22:00 | Outpatient (CLI) | payer MEDICARE, MEDICAID ==
[2018-01-17 23:31] LABS: APPEARANCE, URINE CLOUDY (CLEAR); BACTERIA, URINE AUTO 1+ (NEGATIVE); BILIRUBIN, URINE AUTO NEGATIVE (NEGATIVE); BLOOD, URINE BLOOD NEGATIVE (NEGATIVE); COLOR, URINE YELLOW (YELLOW); GLUCOSE, URINE (UA) AUTO NEGATIVE (NEGATIVE); KETONE, URINE AUTO TRACE mg/dL (NEGATIVE); LEUKOCYTE ESTERASE, URINE AUTO 3+ (NEGATIVE); MUCUS, URINE SMALL (NEGATIVE); NITRITE, URINE AUTO NEGATIVE (NEGATIVE); PROTEIN, URINE AUTO NEGATIVE (NEGATIVE); RBC, URINE AUTO 3 /HPF (0-3); SPECIFIC GRAVITY URINE AUTO 1.018 (1.002-1.035); SQUAMOUS EPITHELIAL CELL UR AU 32 /HPF (0-6); WBC, URINE AUTO 20 /HPF (0-3)
[2018-01-18] MEDS: LR 1,000 ML IV (00:30)
== END 2018-01-18 01:10 | disposition home or self-care (01) ==
LOC: M LDO 22:00
DX: O36.8130 Decreased fetal movements, third trimester, not applicable or unspecified (principal); Z3A.33 33 weeks gestation of pregnancy
CPT/HCPCS: 76819

== ENCOUNTER → 2018-02-07 | Outpatient (REF) | payer MEDICARE, MEDICAID | LOC: M LAB REF 13:27 | DX: Z34.83 Encounter for supervision of other normal pregnancy, third trimester (principal) | CPT/HCPCS: 87081 ==

== ENCOUNTER 2018-02-12 10:26 | Inpatient (IN) | payer MEDICARE, MEDICAID ==
[2018-02-12 11:49] LABS: AMPHETAMINES URINE REFLEX NEGATIVE (NEGATIVE); BARBITURATES URINE REFLEX NEGATIVE (NEGATIVE); BENZODIAZEPINES URINE REFLEX NEGATIVE (NEGATIVE); CANNABINOIDS URINE REFLEX NEGATIVE (NEGATIVE); COCAINE METABOLITE URINE REFLE NEGATIVE (NEGATIVE); METHADONE URINE REFLEX NEGATIVE (NEGATIVE); OPIATES URINE REFLEX NEGATIVE (NEGATIVE); PHENCYCLIDINE URINE REFLEX NEGATIVE (NEGATIVE)
[2018-02-12] MEDS: PROMETHAZINE INJ 25 MG/ML VIAL (J2550) IV (13:02)
[2018-02-12] MEDS: LACTATED RINGER'S 1000 ML IV (13:02)
[2018-02-12] MEDS: BUTORPHANOL 2 MG/ML INJ (J0595) IV (13:02)
[2018-02-12] MEDS: LR 1,000 ML IV (13:03)
[2018-02-12 13:13] LABS: HEMATOCRIT 34.7 % (36.0-47.0); HEMOGLOBIN 11.6 g/dl (12.0-15.5); MEAN CORPUSCULAR HEMOGLOBIN 28.9 pg (27.0-33.0); MEAN CORPUSCULAR HGB CONC 33.4 g/dl (32.0-36.5); MEAN CORPUSCULAR VOLUME 86.3 fl (80.0-96.0); PLATELET COUNT, AUTOMATED 354 10^3/uL (150-450); RED BLOOD COUNT 4.02 10^6/uL (4.00-5.40); RED CELL DISTRIBUTION WIDTH 15.1 % (11.5-14.5); WHITE BLOOD COUNT 11.1 10^3/uL (4.0-10.0)
[2018-02-12] MEDS ORDERED: FENTANYL 2MCG/ML ROPIVACAINE 0.2% IN 0.9% NACL 200ML IVBAG As Ordered (15:34)
[2018-02-12] MEDS ORDERED: ONDANSETRON 4MG/2ML VIAL (J2405) IV (16:45)
[2018-02-12] MEDS ORDERED: REFRIGERATOR IV KEYS XX (16:45)
[2018-02-12] MEDS ORDERED: LACTATED RINGER'S 1000 ML IV (16:45)
[2018-02-12] MEDS ORDERED: EPIDURAL COMMENT XX (16:45)
[2018-02-12] MEDS ORDERED: EPIDURAL/PCA KEYS XX (16:45)
[2018-02-12] MEDS ORDERED: NALOXONE INJ 0.4 MG/1 ML VIAL (J2310) IV (16:45)
[2018-02-12] MEDS: FENTANYL/ROPIVACAINE/NACL BAG 200 ML EPIDURAL (16:45)
[2018-02-12] MEDS ORDERED: ePHEDrine SULFATE 25 MG/5 ML(5MG/ML) SYRINGE IV (16:45)
[2018-02-12] MEDS ORDERED: diphenhydrAMINE INJ 50MG/ML VIAL (J1200) IV (16:45)
[2018-02-12] MEDS ORDERED: OXYTOCIN 30 UNITS IN 0.9% NaCl 500ML IV BAG (J2590) As Ordered (17:24)
[2018-02-12 17:47] LABS: CORD GAS HCO3 V 24.3 MEQ/L; CORD GAS O2 SAT V 52.3 %; CORD GAS PCO2 V 51.2 mmHg; CORD GAS PH V 7.294 UNITS; CORD GAS PO2 V 20.6 mmHg; CORD GAS SBC V 20.7 MEQ/L; CORD GAS TCO2 V 25.9 MEQ/L
[2018-02-12 17:49] LABS: CORD GAS ABE A -5.5; CORD GAS HCO3 A 21.4 MEQ/L; CORD GAS O2 SAT A 60.8 %; CORD GAS PCO2 A 46.5 mmHg; CORD GAS PH A 7.281 UNITS; CORD GAS PO2 A 23.4 mmHg; CORD GAS SBC A 19.1 MEQ/L; CORD GAS TCO2 A 22.8 MEQ/L
[2018-02-12] MEDS ORDERED: ANUSOL HC CREAM 30GM TOP (18:00)
[2018-02-12] MEDS ORDERED: METHYLERGONOVINE MALEATE 0.2 MG TAB PO (18:00)
[2018-02-12] MEDS ORDERED: DIBUCAINE 1% OINTMENT 30GM TOP (18:00)
[2018-02-12] MEDS ORDERED: MOM 30ML SUSPENSION UDC PO (18:00)
[2018-02-12] MEDS: OXYTOCIN DRIP 30 UNITS in APPROPRIATE DILUENT 1 EA IV (18:00)
[2018-02-12] MEDS ORDERED: RHOGAM 300 MCG (1500 IU) INJ (J2790) IM (18:00)
[2018-02-12] MEDS ORDERED: DOCUSATE SODIUM 100 MG CAP PO (18:00)
[2018-02-12] MEDS ORDERED: MEASLES,MUMPS,RUBELLA VACCINE INJ (MMR-II) (90707) SC (18:00)
[2018-02-13] MEDS: ACETAMINOPH W/CODEINE #3 TAB UD PO ×3 (01:15→20:59)
[2018-02-13] MEDS: traMADol 50 MG TAB PO ×2 (01:27→15:38)
[2018-02-13] MEDS: ACETAMINOPHEN 500 MG TAB PO ×2 (06:36→15:38)
[2018-02-13] MEDS: PRENATAL VITAMINS CHEWABLE TABLET PO (08:17)
[2018-02-14] MEDS: PRENATAL VITAMINS CHEWABLE TABLET PO (08:43)
[2018-02-14] MEDS: ACETAMINOPH W/CODEINE #3 TAB UD PO (08:44)
== END 2018-02-14 10:05 | disposition home or self-care (01) | DRG 775 ==
LOC: M LDO 10:26 → M LDI 12:24 → M OBS 20:29
PROC: 10E0XZZ Delivery of Products of Conception, External Approach (ICD-10-PCS; principal; 2018-02-12)
DX: O99.354 Diseases of the nervous system complicating childbirth (principal); Z37.0 Single live birth; Z3A.37 37 weeks gestation of pregnancy; Q07.00 Arnold-Chiari syndrome without spina bifida or hydrocephalus; G93.2 Benign intracranial hypertension; F17.210 Nicotine dependence, cigarettes, uncomplicated; Z88.8 Allergy status to other drugs, medicaments and biological substances; Z79.899 Other long term (current) drug therapy; Z79.891 Long term (current) use of opiate analgesic; Z91.011 Allergy to milk products; O77.0 Labor and delivery complicated by meconium in amniotic fluid; O64.5XX0 Obstructed labor due to compound presentation, not applicable or unspecified; O43.123 Velamentous insertion of umbilical cord, third trimester; O99.334 Smoking (tobacco) complicating childbirth

== ENCOUNTER 2018-03-17 11:43 | Emergency (ER) | payer MEDICARE, MEDICAID ==
[2018-03-17] MEDS: NS 1,000 ML IV (12:15)
[2018-03-17 13:11] LABS: BASO % 0.4 % (0.0-1.0); EOS # 0.1 10^3/uL (0.0-0.50); EOS % 1.7 % (0.0-3.0); HEMATOCRIT 41.1 % (36.0-47.0); HEMOGLOBIN 13.5 g/dl (12.0-15.5); IMMATURE GRANULOCYTE % 0.1 % (0-3.0); LYMPH # 2.8 10^3/uL (1.5-4.5); LYMPH % 39.4 % (24.0-44.0); MEAN CORPUSCULAR HEMOGLOBIN 28.5 pg (27.0-33.0); MEAN CORPUSCULAR HGB CONC 32.8 g/dl (32.0-36.5); MEAN CORPUSCULAR VOLUME 86.7 fl (80.0-96.0); MONO # 0.9 10^3/uL (0.0-0.8); MONO % 12.1 % (0.0-5.0); NEUTROPHILS # 3.3 10^3/uL (1.8-7.7); NEUTROPHILS % 46.3 % (36.0-66.0); PLATELET COUNT, AUTOMATED 363 10^3/uL (150-450); RED BLOOD COUNT 4.74 10^6/uL (4.00-5.40); RED CELL DISTRIBUTION WIDTH 14.8 % (11.5-14.5); WHITE BLOOD COUNT 7.2 10^3/uL (4.0-10.0)
[2018-03-17 13:30] LABS: LACTIC ACID SEPSIS PROTOCOL 1.1 MMOL/L (0.4-2.0)
[2018-03-17 13:30] LABS: AMORPHOUS SEDIMENT SMALL (NEGATIVE); APPEARANCE, URINE CLOUDY (CLEAR); BACTERIA, URINE AUTO NEGATIVE (NEGATIVE); BILIRUBIN, URINE AUTO NEGATIVE (NEGATIVE); BLOOD, URINE BLOOD 3+ (NEGATIVE); COLOR, URINE RED (YELLOW); GLUCOSE, URINE (UA) AUTO NEGATIVE (NEGATIVE); KETONE, URINE AUTO NEGATIVE (NEGATIVE); LEUKOCYTE ESTERASE, URINE AUTO NEGATIVE (NEGATIVE); NITRITE, URINE AUTO NEGATIVE (NEGATIVE); PROTEIN, URINE AUTO 1+ mg/dL (NEGATIVE); RBC, URINE AUTO TNTC /HPF (0-3); SPECIFIC GRAVITY URINE AUTO 1.013 (1.002-1.035); SQUAMOUS EPITHELIAL CELL UR AU 2 /HPF (0-6); WBC, URINE AUTO 118 /HPF (0-3)
[2018-03-17 13:34] LABS: ALBUMIN 2.8 GM/DL (3.2-5.2); ALBUMIN/GLOBULIN RATIO 0.55 (1.00-1.93); ALKALINE PHOSPHATASE 124 U/L (45-117); ALT/SGPT 21 U/L (12-78); ANION GAP 5 MEQ/L (8-16); AST/SGOT 23 U/L (7-37); BILIRUBIN,TOTAL 0.2 MG/DL (0.2-1.0); BLOOD UREA NITROGEN 8 MG/DL (7-18); CALCIUM LEVEL 8.5 MG/DL (8.5-10.1); CARBON DIOXIDE LEVEL 28 MEQ/L (21-32); CHLORIDE LEVEL 106 MEQ/L (98-107); GLOMERULAR FILTRATION RATE > 60.0 (>60); GLUCOSE, FASTING 93 MG/DL (70-100); HCG, SERUM QUANTITATIVE < 1.0 MIU/ML; POTASSIUM SERUM 4.1 MEQ/L (3.5-5.1); SODIUM LEVEL 139 MEQ/L (136-145); TOTAL PROTEIN 7.9 GM/DL (6.4-8.2)
[2018-03-17] MEDS ORDERED: ISOVUE-370 76% 100ML VIAL (Q9967) As Ordered (13:57)
[2018-03-17 14:05] LABS: CK-MB VALUE MASS < 1.0 NG/ML (<3.6); CPK CREATINE PHOSPHOKINASE 68 U/L (26-192); MB/CK RELATIVE INDEX 1.47 (< OR =4); TROPONIN I < 0.02 NG/ML (< 0.10)
[2018-03-17 14:27] LABS: D-DIMER QUANT 334.3 ng/ml (<500)
[2018-03-17 19:48] LABS: CK-MB VALUE MASS < 1.0 NG/ML (<3.6); CPK CREATINE PHOSPHOKINASE 50 U/L (26-192); TROPONIN I < 0.02 NG/ML (< 0.10)
== END 2018-03-17 20:24 | disposition home or self-care (01) ==
LOC: M ED 11:43
DX: R07.9 Chest pain, unspecified (principal); N39.0 Urinary tract infection, site not specified; N93.9 Abnormal uterine and vaginal bleeding, unspecified; I10 Essential (primary) hypertension; I25.2 Old myocardial infarction; J45.909 Unspecified asthma, uncomplicated; G93.2 Benign intracranial hypertension; F17.200 Nicotine dependence, unspecified, uncomplicated; Z88.8 Allergy status to other drugs, medicaments and biological substances; Z91.011 Allergy to milk products; Z79.899 Other long term (current) drug therapy
CPT/HCPCS: Q9967

== ENCOUNTER 2018-05-13 13:50 | Emergency (ER) | payer OTHER, MEDICAID, MEDICARE ==
[2018-05-13] MEDS: diphenhydrAMINE INJ 50MG/ML VIAL (J1200) IV (15:09)
[2018-05-13] MEDS: KETOROLAC 30 MG/ML VIAL (J1885) IV (15:15)
[2018-05-13] MEDS: METOCLOPRAMIDE INJ 10MG/2ML VIAL (J2765) IV (15:15)
[2018-05-13] MEDS: NS 1,000 ML IV (16:30)
== END 2018-05-13 17:37 | disposition home or self-care (01) ==
LOC: M ED 13:50
DX: G44.209 Tension-type headache, unspecified, not intractable (principal); I10 Essential (primary) hypertension; V48.6XXA Car passenger injured in noncollision transport accident in traffic accident, initial encounter; Y92.9 Unspecified place or not applicable; Z79.899 Other long term (current) drug therapy; Z88.8 Allergy status to other drugs, medicaments and biological substances; Z91.011 Allergy to milk products
CPT/HCPCS: J1200

== ENCOUNTER → 2018-08-31 | Outpatient (REF) | payer MEDICARE, MEDICAID ==
[~2018-08-31] MED LIST changes: +ACET30TAB PO; +ATEN50TA2; +CETI10TA; +FERR325T3 PO; +FLUTISP; +HYDR-3713; +MACR100C43 PO; +NAPR-50 PO; -NAPR500T PO; +OMEP40CA2 PO; +ONDA4TAB5 PO; +PRENTAB9 PO; +PREP1TAB3; +RANI150T PO; +RANI15TA PO; +TRAM100T18 PO; +ZOFR4TAB16 PO
== END ==
LOC: M LAB REF 13:14
PROVIDERS: ATTEND Obstetrics & Gynecology
DX: Z34.00 Encounter for supervision of normal first pregnancy, unspecified trimester (principal)

== ENCOUNTER 2018-09-02 03:11 | Emergency (ER) | payer MEDICARE, MEDICAID ==
[~2018-09-02] VITALS: Ht 162.6 cm; Wt 100.0 kg
[~2018-09-02 03:11] MED LIST changes: -ONDA4TAB5 PO
[2018-09-02 04:07] LABS: HEMATOCRIT 37.2 % (36.0-47.0); HEMOGLOBIN 12.4 g/dl (12.0-15.5); MEAN CORPUSCULAR HEMOGLOBIN 31.2 pg (27.0-33.0); MEAN CORPUSCULAR HGB CONC 33.3 g/dl (32.0-36.5); MEAN CORPUSCULAR VOLUME 93.7 fl (80.0-96.0); PLATELET COUNT, AUTOMATED 334 10^3/uL (150-450); RED BLOOD COUNT 3.97 10^6/uL (4.00-5.40); WHITE BLOOD COUNT 11.2 10^3/uL (4.0-10.0)
[2018-09-02 04:34] LABS: BASOPHILS 1 % (0-4); EOSINOPHILS 2 % (0-5); LYMPHOCYTES 45 % (16-52); MONOCYTES 8 % (0-8); NEUTROPHILS 44 % (35-75); PLATELET ESTIMATE NORMAL (NORMAL)
[2018-09-02 06:24] VITALS: BP 133/98
--- NOTE | 2018-09-02 06:29 | REPVR ---
EXAM: US First Trimester, Transabdominal and US , Transvaginal EXAM DATE/TIME: 09/02/2018 5:11 AM CLINICAL HISTORY: 37 years old, female; Lmp (07/15/2018); gestational age (in weeks): 5 weeks 6 days; Vaginal bleeding; TECHNIQUE: Real-time transabdominal obstetrical ultrasound of the maternal pelvis and a first trimester , less than 14 weeks 0 days, with image documentation. Transvaginal imaging was used for better evaluation of the fetus and adnexa. COMPARISON: No relevant prior studies available. FINDINGS: Last menstrual period: 07/15/2018 Beta HC mIU/mL GESTATION: Gestation: No intrauterine gestation is identified. Heart rate: No cardiac activity is identified Placenta: No placenta is identified. Amniotic fluid: No amniotic fluid is identified. BIOMETRY: Estimated gestational age: No pole is identified to calculate a gestational age. MATERNAL: Uterus: The anteverted uterus measures 9 cm x 4 cm x 5 cm. There are small echogenic foci in the myometrium, which represent calcifications. The endometrium is homogeneous in appearance and measures 3 mm in thickness. Cervix: Unremarkable. Right adnexa: The right ovary measures 2.1 cm x 1.4 cm x 2.1 cm. There is a 1.4 cm x 0.6 cm x 1.1 cm cyst in the right ovary, which likely represents a corpus luteal cyst. Blood flow is demonstrated to the right ovary. No right adnexal mass is identified. Left adnexa: The left ovary is normal in appearance. No left ovarian cyst or left adnexal mass is noted. Blood flow is demonstrated to the left ovary. The left ovary measures 2 cm x 1.4 cm x 1.1 cm. Intraperitoneal: No intraperitoneal free fluid. IMPRESSION: No intrauterine or extrauterine or free fluid identified in the pelvis. Differential diagnostic considerations include a spontaneous complete , an early normal or abnormal , or an ectopic . Followup serial beta hCG levels and a repeat obstetrical ultrasound when beta hCG levels reach greater than 2,000 mIU/mL or as clinically indicated are suggested. Electronically signed by: Tutu Andrews On 09/02/2018 06:28:51 AM
== END 2018-09-02 06:23 | disposition home or self-care (01) ==
LOC: M ED 03:11
DX: O20.0 Threatened abortion (principal); O99.511 Diseases of the respiratory system complicating pregnancy, first trimester; J45.909 Unspecified asthma, uncomplicated; O99.611 Diseases of the digestive system complicating pregnancy, first trimester; K21.9 Gastro-esophageal reflux disease without esophagitis; O99.331 Smoking (tobacco) complicating pregnancy, first trimester; F17.210 Nicotine dependence, cigarettes, uncomplicated; Z3A.01 Less than 8 weeks gestation of pregnancy; Z91.011 Allergy to milk products; Z88.8 Allergy status to other drugs, medicaments and biological substances; Z79.899 Other long term (current) drug therapy

== ENCOUNTER → 2018-09-04 | Outpatient (REF) | payer MEDICARE, MEDICAID ==
[~2018-09-04] MED LIST changes: +ONDA4TAB5 PO
== END ==
LOC: M LAB REF 12:48
PROVIDERS: ATTEND Obstetrics & Gynecology
DX: O36.80X0 Pregnancy with inconclusive fetal viability, not applicable or unspecified (principal); Z3A.00 Weeks of gestation of pregnancy not specified

== ENCOUNTER 2018-09-10 11:25 | Emergency (ER) | payer MEDICARE, MEDICAID ==
[~2018-09-10] VITALS: Ht 162.6 cm; Wt 100.0 kg
[~2018-09-10 11:25] MED LIST changes: -ONDA4TAB5 PO
[2018-09-10 11:26] VITALS: BP 140/91
[2018-09-10] MEDS ORDERED: ONDA4TAB5 PO (11:31)
[2018-09-10 12:10] LABS: BASO % 0.2 % (0.0-1.0); EOS # 0.1 10^3/uL (0.0-0.50); EOS % 1.1 % (0.0-3.0); HEMATOCRIT 37.1 % (36.0-47.0); HEMOGLOBIN 12.4 g/dl (12.0-15.5); LYMPH # 3.5 10^3/uL (1.5-4.5); LYMPH % 28.4 % (24.0-44.0); MEAN CORPUSCULAR HEMOGLOBIN 31.8 pg (27.0-33.0); MEAN CORPUSCULAR HGB CONC 33.4 g/dl (32.0-36.5); MEAN CORPUSCULAR VOLUME 95.1 fl (80.0-96.0); MONO # 1.1 10^3/uL (0.0-0.8); MONO % 8.6 % (0.0-5.0); NEUTROPHILS # 7.6 10^3/uL (1.8-7.7); NEUTROPHILS % 61.3 % (36.0-66.0); PLATELET COUNT, AUTOMATED 387 10^3/uL (150-450); WHITE BLOOD COUNT 12.4 10^3/uL (4.0-10.0)
--- NOTE | 2018-09-10 13:19 | REP ---
Clinical: Vaginal bleeding with positive test. Technique: Transabdominal and transvaginal first trimester obstetrical ultrasound with color Doppler evaluation. Findings: Heterogeneous anteverted uterus measures 7.8 x 3.8 x 5.0 cm. Endometrial complex measures 5.9 mm thickness. No intrauterine identified. The bilateral ovaries are normal in appearance and vascularity without torsion. Right ovary measures 3.1 x 1.7 x 2.5 cm with 1.4 cm hemorrhagic cyst; RI 0.51. Left ovary measures 2.0 x 1.7 x 1.5 cm; RI 0.50. No pelvic fluid or adnexal mass lesion. Impression: No intrauterine identified. Differential diagnosis includes early as well as missed . Ectopic cannot definitively be excluded and should be correlated clinically. Follow-up HCG levels may be warranted. Electronically Signed by Mason Rene MD 09/10/2018 01:11 P
== END 2018-09-10 13:32 | disposition home or self-care (01) ==
LOC: M ED 11:25
DX: O20.0 Threatened abortion (principal); F17.200 Nicotine dependence, unspecified, uncomplicated

== ENCOUNTER → 2018-09-18 | Outpatient (REF) | payer MEDICARE, MEDICAID ==
[~2018-09-18] MED LIST changes: +ONDA4TAB5 PO
== END ==
LOC: M LAB REF 13:07
PROVIDERS: ATTEND Obstetrics & Gynecology
DX: O36.80X0 Pregnancy with inconclusive fetal viability, not applicable or unspecified (principal); Z3A.00 Weeks of gestation of pregnancy not specified

== ENCOUNTER 2019-03-30 00:37 | Emergency (ER) | payer MEDICARE, MEDICAID ==
[~2019-03-30] VITALS: Ht 162.6 cm; Wt 90.9 kg
[2019-03-30 00:37] VITALS: BP 135/93
[~2019-03-30 00:37] MED LIST changes: +ACET-716 PO; -ACET30TAB PO; -NAPR-50 PO; +NAPR-837 PO
[2019-03-30] MEDS ORDERED: IBUP1TAB6 PO (00:42)
[2019-03-30] MEDS ORDERED: CHAN1PAK11 PO (00:49)
--- NOTE | 2019-03-30 09:10 | REP ---
Right tib-fib series: Four views. History: Twisting injury. Findings: Four views of the right tibia and fibula demonstrate normal bones, joints and soft tissues. No fracture or subluxation is seen. Impression: Negative right tib-fib radiographs Electronically Signed by Jignesh Abdul MD 03/30/2019 09:02 A
--- NOTE | 2019-03-30 09:10 | REP ---
Right ankle: Four views. History: Twisting injury. Findings: Four views right ankle demonstrate an intact ankle mortise. No fractures seen. There is mild anterior soft tissue swelling. Impression: No fracture noted. Electronically Signed by Jignesh Abdul MD 03/30/2019 09:02 A
== END 2019-03-30 03:32 | disposition home or self-care (01) ==
LOC: M ED 00:37
DX: S93.401A Sprain of unspecified ligament of right ankle, initial encounter (principal); X50.9XXA Other and unspecified overexertion or strenuous movements or postures, initial encounter; Y92.410 Unspecified street and highway as the place of occurrence of the external cause; Z79.899 Other long term (current) drug therapy; Z88.8 Allergy status to other drugs, medicaments and biological substances; Z91.018 Allergy to other foods; F17.210 Nicotine dependence, cigarettes, uncomplicated

== ENCOUNTER 2019-05-27 14:28 | Emergency (ER) | payer MEDICARE, MEDICAID ==
[~2019-05-27] VITALS: Ht 162.6 cm; Wt 108.2 kg
[~2019-05-27 14:28] MED LIST changes: +CHAN1PAK11 PO; +IBUP1TAB6 PO; -OMEP40CA2 PO; +OMEP40CA97 PO
[2019-05-27] MEDS ORDERED: RANI-280 PO (15:17)
[2019-05-27 16:06] LABS: BASO % 0.2 % (0.0-1.0); EOS # 0.2 10^3/uL (0.0-0.5); EOS % 1.7 % (0.0-3.0); HEMATOCRIT 43.1 % (36.0-47.0); HEMOGLOBIN 14.3 g/dl (12.0-15.5); LYMPH # 3.4 10^3/uL (1.5-5.0); LYMPH % 37.1 % (24.0-44.0); MEAN CORPUSCULAR HEMOGLOBIN 30.7 pg (27.0-33.0); MEAN CORPUSCULAR HGB CONC 33.2 g/dl (32.0-36.5); MEAN CORPUSCULAR VOLUME 92.5 fl (80.0-96.0); MONO # 0.8 10^3/uL (0.0-0.8); MONO % 9.2 % (0.0-5.0); NEUTROPHILS # 4.7 10^3/uL (1.5-8.5); NEUTROPHILS % 51.6 % (36.0-66.0); PLATELET COUNT, AUTOMATED 415 10^3/uL (150-450); RED BLOOD COUNT 4.66 10^6/uL (4.00-5.40); WHITE BLOOD COUNT 9.2 10^3/uL (4.0-10.0)
[2019-05-27 16:35] LABS: BLOOD UREA NITROGEN 15 MG/DL (7-18); CALCIUM LEVEL 9.6 MG/DL (8.5-10.1); CARBON DIOXIDE LEVEL 25 MEQ/L (21-32); CHLORIDE LEVEL 106 MEQ/L (98-107); CREATININE FOR GFR 0.95 MG/DL (0.55-1.30); GLOMERULAR FILTRATION RATE > 60.0 (>60); GLUCOSE, FASTING 103 MG/DL (70-100); POTASSIUM SERUM 4.2 MEQ/L (3.5-5.1); SODIUM LEVEL 139 MEQ/L (136-145)
[2019-05-27 16:53] LABS: HCG, SERUM QUALITATIVE POSITIVE (NEGATIVE)
[2019-05-27 17:21] VITALS: BP 168/84
--- NOTE | 2019-05-27 19:15 | ECGEPIP ---
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
== END 2019-05-27 17:33 | disposition home or self-care (01) ==
LOC: M ED 14:28
DX: Z32.01 Encounter for pregnancy test, result positive (principal); O99.89 Other specified diseases and conditions complicating pregnancy, childbirth and the puerperium; H65.03 Acute serous otitis media, bilateral; O26.90 Pregnancy related conditions, unspecified, unspecified trimester; O10.019 Pre-existing essential hypertension complicating pregnancy, unspecified trimester; O09.519 Supervision of elderly primigravida, unspecified trimester; Z86.79 Personal history of other diseases of the circulatory system; Z86.011 Personal history of benign neoplasm of the brain; Z87.19 Personal history of other diseases of the digestive system; Z79.899 Other long term (current) drug therapy; Z88.8 Allergy status to other drugs, medicaments and biological substances; Z91.011 Allergy to milk products

== ENCOUNTER 2019-09-13 20:42 | Inpatient (IN) | payer MEDICARE, MEDICAID ==
[~2019-09-13] VITALS: Ht 162.6 cm; Wt 111.7 kg
[~2019-09-13 20:42] MED LIST changes: +ONDA-83 PO; -ONDA4TAB5 PO; +RANI-280 PO
[2019-09-13] MEDS ORDERED: ACET-841 PO (20:48)
[2019-09-13 23:03] LABS: HEMATOCRIT 39.8 % (36.0-47.0); HEMOGLOBIN 12.9 g/dl (12.0-15.5); MEAN CORPUSCULAR HEMOGLOBIN 29.7 pg (27.0-33.0); MEAN CORPUSCULAR HGB CONC 32.4 g/dl (32.0-36.5); MEAN CORPUSCULAR VOLUME 91.7 fl (80.0-96.0); PLATELET COUNT, AUTOMATED 388 10^3/uL (150-450); RED BLOOD COUNT 4.34 10^6/uL (4.00-5.40); WHITE BLOOD COUNT 9.5 10^3/uL (4.0-10.0)
[2019-09-13 23:27] LABS: LYMPHOCYTES 42 % (16-44); MONOCYTES 5 % (0-5); NEUTROPHILS 53 % (28-66); PLATELET ESTIMATE NORMAL (NORMAL)
[2019-09-13 23:29] LABS: ACETAMINOPHEN LEVEL 13.2 UG/ML (10.0-30.0); ALBUMIN 3.5 GM/DL (3.2-5.2); ALT/SGPT 16 U/L (12-78); BILIRUBIN,DIRECT < 0.1 MG/DL (0.0-0.2); BILIRUBIN,TOTAL 0.2 MG/DL (0.2-1.0); BLOOD UREA NITROGEN 9 MG/DL (7-18); CALCIUM LEVEL 8.7 MG/DL (8.5-10.1); CARBON DIOXIDE LEVEL 24 MEQ/L (21-32); CHLORIDE LEVEL 106 MEQ/L (98-107); CPK CREATINE PHOSPHOKINASE 90 U/L (26-192); CREATININE FOR GFR 0.84 MG/DL (0.55-1.30); ETHYL ALCOHOL (ETHANOL) 0.007 % (0.000-0.010); GLOMERULAR FILTRATION RATE > 60.0 (>60); GLUCOSE, FASTING 102 MG/DL (70-100); POTASSIUM SERUM 3.8 MEQ/L (3.5-5.1); SALICYLATE LEVEL 8.6 MG/DL (5.0-30.0); SODIUM LEVEL 137 MEQ/L (136-145)
[2019-09-14] VITALS (13 sets, daily range): BP systolic 135–180; BP diastolic 60–99
--- NOTE | 2019-09-14 01:19 | HPEPDOC ---
[facility] Medical History & Physical Date of Admission Sep 14, 2019 Date of Service: Sep 14, 2019 Primary Care Physician: William Duke Attending Physician: RAMY MIRAMONTES MD History and Physical TIME OF SERVICE: 2:05 AM CHIEF COMPLAINT: Feeling funny HISTORY OF PRESENT ILLNESS: As is a 38-year-old female who presents with complaints of feeling funny. Specifically, she's been having cramping abdominal pain, dizziness, chest discomfort, and 3 episodes of emesis. She is not sure if there is blood in the vomitus. She is also been having right-sided 10 out of 10 in severity tooth pain for about 3 days. As result of the pain she has in having had difficulty sleeping. She's been taking Tylenol, ibuprofen and Excedrin but cannot quantify the amount that she has taken. She has seen a dentist for her teeth there are plans to pull her teeth and about 10 months. 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 Diabetes Rheumatoid arthritis. MS ALLERGIES: Please see below. HOME MEDICATIONS: Please see below. PHYSICAL EXAMINATION: VITAL SIGNS: Please see below. GEN: well-nourished / well developed INTEGUMENT: not flushed HEENT: NCAT / lips acyanotic /mucus membranes moist and pink CVS: RRR/NMRG LUNGS: lungs are clear to auscultation bilaterally on room air ABDOMEN: Contour (obese) / soft & not tender with palpation MSK/EXTREMITIES: range of motion intact in all 4 extremities / and has been amputated NEURO: CN 2-12 are grossly intact / speech is not dysarthric / strength is 5/5 PSYCH: alert and oriented to person place and time/ able to understand and follow all commands LABORATORY DATA: See below. ASSESSMENT: Ms. Schroeder is a 38-year-old female with past medical history of pseudotumor cerebri, Arnold Chiari malformation, and chronic neck pain who is admitted for management of Tylenol overdose. PLAN: 1. Tylenol overdose Her serum acetaminophen levels were 13.2 The Poison Control Center was consulted and recommended started and acetylcysteine and calling them frequently to follow-up on her blood work Plan: admit to ICU / f/u coags, CMP, Q4H / IVF / f/u w poison control for NAC dosing 2. Polysubstance abuse. Drug screen positive for opiates. She admits to using tobacco products. Plan: Smoking cessation education / unable to give nicotine patch because it is metabolized hepatically 3. Nausea. Plan: Zofran. 4. Hypokalemia Plan: replete K 5.Tooth pain. Plan: Toradol/advised the patient to reschedule her appointment with her dentist sooner 6.Obesity Her BMI is 42.3. 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 After more than 2 midnight's stay Vital Signs Vital Signs Date Time Temp Pulse Resp B/P (MAP) Pulse Ox O2 Delivery O2 Flow Rate FiO2 09/14/19 00:27 96 98 09/13/19 20:54 09/13/19 20:42 99.0 18 Room Air Laboratory Data Labs 24H Laboratory Tests 2 09/13/19 22:47: Nucleated Red Blood Cells % (auto) 0.0, Neutrophils 53, Lymphocytes (Manual) 42, Monocytes (Manual) 5, Red Blood Cell Morphology NORMAL, Platelet Estimate NORMAL, Anion Gap 7L, Glomerular Filtration Rate > 60.0, Calcium Level 8.7, Total Bilirubin 0.2, Direct Bilirubin < 0.1, Aspartate Amino Transf (AST/SGOT) 14, Alanine Aminotransferase (ALT/SGPT) 16, Alkaline Phosphatase 82, Total Creatine Kinase 90, Total Protein 8.0, Albumin 3.5, Albumin/Globulin Ratio 0. 78L, Thyroid Stimulating Hormone (TSH) 1.060, Salicylates Level 8.6, Acetaminophen Level 13.2, Ethyl Alcohol Level 0.007 CBC/BMP Laboratory Tests 09/13/19 22:47 Home Medications Scheduled Omeprazole (Omeprazole) 40 Mg Capsule.dr, 40 MG PO DAILY Varenicline Tartrate (Chantix) 1 Mg Tablet, 1 MG PO BID Scheduled PRN Acetaminophen (Acetaminophen) 500 Mg Tablet, 1,000 MG PO Q6H PRN for PAIN Aspirin/Acetaminophen/Caffeine (Excedrin Migraine Caplet) 1 Each Tablet, 2 TAB P O Q6H PRN for PAIN Ibuprofen (Ibuprofen) 800 Mg Tablet, 800 MG PO TID PRN for PAIN Linaclotide (Linzess) 290 Mcg Cap, 1 CAP PO DAILY PRN for CONSTIPATION Allergies Coded Allergies: acetazolamide (Verified Allergy, Unknown, throat closes, 05/27/19) diclofenac (Verified Allergy, Unknown, throat closes, 05/27/19) milk (Verified Allergy, Unknown, throat closing, 05/27/19) A-FIB/CHADSVASC A-FIB History Current/History of A-Fib/PAF?: No Current PO Anticoag Therapy: No RAMY MIRAMONTES MD Sep 14, 2019 01:19
[2019-09-14] MEDS ORDERED: ACETYLCYSTEINE 20% 30 ML VIAL PO ONE (01:45)
[2019-09-14 01:48] LABS: AMPHETAMINES LEVEL URINE NEGATIVE (NEGATIVE); BARBITURATES URINE NEGATIVE (NEGATIVE); BENZODIAZEPINES URINE NEGATIVE (NEGATIVE); CANNABINOIDS URINE NEGATIVE (NEGATIVE); COCAINE METABOLITE URINE NEGATIVE (NEGATIVE); METHADONE URINE NEGATIVE (NEGATIVE); OPIATES URINE POSITIVE (NEGATIVE); PHENCYCLIDINE URINE NEGATIVE (NEGATIVE)
[2019-09-14] MEDS ORDERED: IBUP1TAB7 PO (01:55)
[2019-09-14] MEDS ORDERED: CHAN1PAK13 PO (01:55)
[2019-09-14] MEDS ORDERED: EXCETAB33 PO (01:55)
[2019-09-14] MEDS ORDERED: OMEP-221 PO (01:55)
[2019-09-14] MEDS ORDERED: ACETYLCYSTEINE 15,000 MG in D5W 250 ML IV ONE (03:00)
[2019-09-14] MEDS: KETOROLAC 30 MG/ML VIAL (J1885) IV PRN ×4 (03:03→23:56)
[2019-09-14 03:35] LABS: ALBUMIN 3.5 GM/DL (3.2-5.2); ALT/SGPT 15 U/L (12-78); BILIRUBIN,TOTAL 0.3 MG/DL (0.2-1.0); BLOOD UREA NITROGEN 8 MG/DL (7-18); CALCIUM LEVEL 8.4 MG/DL (8.5-10.1); CARBON DIOXIDE LEVEL 24 MEQ/L (21-32); CHLORIDE LEVEL 105 MEQ/L (98-107); CREATININE FOR GFR 0.84 MG/DL (0.55-1.30); GLOMERULAR FILTRATION RATE > 60.0 (>60); GLUCOSE, FASTING 135 MG/DL (70-100); POTASSIUM SERUM 3.1 MEQ/L (3.5-5.1); SODIUM LEVEL 138 MEQ/L (136-145); TOTAL PROTEIN 7.8 GM/DL (6.4-8.2)
[2019-09-14] MEDS ORDERED: ACETYLCYSTEINE 5,000 MG in D5W 500 ML IV ONE (04:00)
[2019-09-14] MEDS: ONDANSETRON 4MG/2ML VIAL (J2405) IV PRN ×2 (05:13→16:27)
[2019-09-14 05:39] LABS: HEMOGLOBIN A1c 6.1 %
[2019-09-14 05:40] LABS: INR 1.21; PROTHROMBIN TIME 15.1 SECONDS (11.8-14.0)
[2019-09-14 05:54] LABS: ALT/SGPT 20 U/L (12-78); BILIRUBIN,TOTAL 0.3 MG/DL (0.2-1.0); BLOOD UREA NITROGEN 10 MG/DL (7-18); CALCIUM LEVEL 8.6 MG/DL (8.5-10.1); CARBON DIOXIDE LEVEL 28 MEQ/L (21-32); CHLORIDE LEVEL 99 MEQ/L (98-107); CREATININE FOR GFR 0.88 MG/DL (0.55-1.30); GLOMERULAR FILTRATION RATE > 60.0 (>60); GLUCOSE, FASTING 146 MG/DL (70-100); POTASSIUM SERUM 3.4 MEQ/L (3.5-5.1); SODIUM LEVEL 139 MEQ/L (136-145); TOTAL PROTEIN 7.1 GM/DL (6.4-8.2)
[2019-09-14] MEDS ORDERED: NS 1,000 ML IV SCH (06:00)
[2019-09-14] MEDS ORDERED: POTASSIUM CHL PWD 20 MEQ PACKET PO ONE (07:00)
[2019-09-14] MEDS ORDERED: ACETYLCYSTEINE 10,000 MG in D5W 1,000 ML IV ONE (08:00)
[2019-09-14] MEDS: CALCIUM CARBONATE 500 MG CHEW U/D PO SCH ×3 (08:38→20:46)
[2019-09-14] MEDS: ENOXAPARIN 40 MG/0.4 ML SYRINGE (J1650) SC SCH (08:38)
[2019-09-14] MEDS: OMEPRAZOLE 20 MG CAP PO SCH (08:39)
[2019-09-14] MEDS ORDERED: ENTER DRUG NAME HERE (PATIENT'S OWN MED) PO SCH (09:00)
[2019-09-14 09:16] LABS: ACETAMINOPHEN LEVEL < 2.0 UG/ML (10.0-30.0)
[2019-09-14 09:19] LABS: ALT/SGPT 12 U/L (12-78); BILIRUBIN,TOTAL 0.3 MG/DL (0.2-1.0); BLOOD UREA NITROGEN 12 MG/DL (7-18); CALCIUM LEVEL 8.3 MG/DL (8.5-10.1); CARBON DIOXIDE LEVEL 25 MEQ/L (21-32); CHLORIDE LEVEL 102 MEQ/L (98-107); CREATININE FOR GFR 0.84 MG/DL (0.55-1.30); GLOMERULAR FILTRATION RATE > 60.0 (>60); GLUCOSE, FASTING 117 MG/DL (70-100); SODIUM LEVEL 137 MEQ/L (136-145); TOTAL PROTEIN 7.5 GM/DL (6.4-8.2)
[2019-09-14] MEDS ORDERED: POTASSIUM CHLORIDE 10 MEQ SR TABLET PO ONE (10:00)
[2019-09-14 10:36] LABS: CK-MB VALUE MASS < 1.0 NG/ML (<3.6); CPK CREATINE PHOSPHOKINASE 89 U/L (26-192); MAGNESIUM LEVEL 1.6 MG/DL (1.8-2.4); MB/CK RELATIVE INDEX 1.12 (< OR =4); TROPONIN I < 0.02 NG/ML (< 0.10)
[2019-09-14] MEDS ORDERED: MAG SULF 1GM/100ML (MAG RUN) 1 GM in IV 1 EA IV ONE (11:00)
--- NOTE | 2019-09-14 11:02 | IPNPDOC ---
Text Note Date of Service The patient was seen on 09/14/19. NOTE Subjective: Patient complains of a mild abdominal pain and chest discomfort. Patient had a few episodes of vomiting and nausea overnight. Objective: VITAL SIGNS: Please see below. GENERAL APPEARANCE: Morbidly obese female HEENT: Normocephalic, atraumatic. Mucous members moist and pink CARDIOVASCULAR: Regular rate and rhythm. No murmurs, rubs or gallops. Radial pulses are intact. There is no lower extremity edema LUNGS: Diminished lung sounds ABDOMEN: Abdomen is soft, mildly tender in the right subphrenic area, obese MUSCULOSKELETAL: Range of motion is intact in all 4 extremities NEUROLOGICAL: Cranial nerves II-12 are grossly intact. Speech is not dysarthric Pt is 38-year-old female with past medical history of pseudotumor cerebri, Arnold Chiari malformation, and chronic neck pain who is admitted for management of Tylenol overdose. Tylenol overdose Her serum acetaminophen levels were 13.2 The Poison Control Center was consulted and recommended NAC Continue with NAC , 3d dose running CMP monitor No transaminitis, LFTs within normal limit, repeated level of acetaminophen<2 2. Polysubstance abuse. Drug screen positive for opiates. She admits to using tobacco products. 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 Nausea. Zofran. 4. Hypokalemia Replenished 5.Tooth pain. Pain management Avoid Tylenol 6.Obesity Her BMI is 42.3. Patient will benefit from bariatric surgery Chest discomfort EKG ordered Troponin Patient did have 16 beats of V. tach, magnesium level was 1.6, replenished. Hypomagnesemia See above VS,Fishbone, I+O VS, Fishbone, I+O Laboratory Tests 09/13/19 22:47 09/14/19 03:02 09/14/19 05:15 09/14/19 08:37 Vital Signs Date Time Temp Pulse Resp B/P (MAP) Pulse Ox O2 Delivery O2 Flow Rate FiO2 09/14/19 08:00 98.2 106 20 173/99 (123) 99 Room Air GARY PRAJAPATI DO Sep 14, 2019 11:02
--- NOTE | 2019-09-14 13:26 | ECGEPIP ---
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
[2019-09-14 14:15] LABS: ALBUMIN 3.3 GM/DL (3.2-5.2); ALT/SGPT 18 U/L (12-78); BILIRUBIN,TOTAL 0.2 MG/DL (0.2-1.0); BLOOD UREA NITROGEN 15 MG/DL (7-18); CALCIUM LEVEL 9.3 MG/DL (8.5-10.1); CARBON DIOXIDE LEVEL 23 MEQ/L (21-32); CHLORIDE LEVEL 103 MEQ/L (98-107); CK-MB VALUE MASS < 1.0 NG/ML (<3.6); CPK CREATINE PHOSPHOKINASE 98 U/L (26-192); CREATININE FOR GFR 0.89 MG/DL (0.55-1.30); GLOMERULAR FILTRATION RATE > 60.0 (>60); GLUCOSE, FASTING 126 MG/DL (70-100); MB/CK RELATIVE INDEX 1.02 (< OR =4); POTASSIUM SERUM 3.7 MEQ/L (3.5-5.1); SODIUM LEVEL 136 MEQ/L (136-145); TOTAL PROTEIN 7.6 GM/DL (6.4-8.2); TROPONIN I < 0.02 NG/ML (< 0.10)
[2019-09-14] MEDS ORDERED: NICOTINE 21MG/24HR 1 EA TRANSDERMAL TD ONE (18:00)
[2019-09-14 18:51] LABS: ALT/SGPT 19 U/L (12-78); BILIRUBIN,TOTAL 0.2 MG/DL (0.2-1.0); BLOOD UREA NITROGEN 17 MG/DL (7-18); CALCIUM LEVEL 9.1 MG/DL (8.5-10.1); CARBON DIOXIDE LEVEL 24 MEQ/L (21-32); CHLORIDE LEVEL 106 MEQ/L (98-107); GLOMERULAR FILTRATION RATE > 60.0 (>60); GLUCOSE, FASTING 109 MG/DL (70-100); POTASSIUM SERUM 3.8 MEQ/L (3.5-5.1); SODIUM LEVEL 137 MEQ/L (136-145); TOTAL PROTEIN 7.6 GM/DL (6.4-8.2)
[2019-09-14 23:34] LABS: INR 1.06; PROTHROMBIN TIME 13.5 SECONDS (11.8-14.0)
[2019-09-14 23:48] LABS: ACETAMINOPHEN LEVEL 21.7 UG/ML (10.0-30.0); ALBUMIN 3.1 GM/DL (3.2-5.2); ALT/SGPT 13 U/L (12-78); BILIRUBIN,TOTAL 0.1 MG/DL (0.2-1.0); BLOOD UREA NITROGEN 21 MG/DL (7-18); CALCIUM LEVEL 8.9 MG/DL (8.5-10.1); CARBON DIOXIDE LEVEL 21 MEQ/L (21-32); CHLORIDE LEVEL 109 MEQ/L (98-107); CREATININE FOR GFR 0.93 MG/DL (0.55-1.30); GLOMERULAR FILTRATION RATE > 60.0 (>60); GLUCOSE, FASTING 121 MG/DL (70-100); SODIUM LEVEL 139 MEQ/L (136-145); TOTAL PROTEIN 7.1 GM/DL (6.4-8.2)
[2019-09-15 02:00] VITALS: BP 154/96
[2019-09-15] MEDS ORDERED: ACETYLCYSTEINE 10,000 MG in D5W 1,000 ML IV ONE (05:00)
[2019-09-15 06:00] VITALS: BP 150/98
[2019-09-15] MEDS: KETOROLAC 30 MG/ML VIAL (J1885) IV PRN ×2 (07:47→16:58)
[2019-09-15 08:58] LABS: ALBUMIN 2.8 GM/DL (3.2-5.2); ALT/SGPT 13 U/L (12-78); BILIRUBIN,TOTAL 0.2 MG/DL (0.2-1.0); BLOOD UREA NITROGEN 20 MG/DL (7-18); CALCIUM LEVEL 8.6 MG/DL (8.5-10.1); CARBON DIOXIDE LEVEL 23 MEQ/L (21-32); CHLORIDE LEVEL 108 MEQ/L (98-107); CREATININE FOR GFR 0.84 MG/DL (0.55-1.30); GLOMERULAR FILTRATION RATE > 60.0 (>60); GLUCOSE, FASTING 126 MG/DL (70-100); POTASSIUM SERUM 4.2 MEQ/L (3.5-5.1); SODIUM LEVEL 140 MEQ/L (136-145); TOTAL PROTEIN 6.7 GM/DL (6.4-8.2)
[2019-09-15 10:00] VITALS: BP 148/82
[2019-09-15] MEDS: ENOXAPARIN 40 MG/0.4 ML SYRINGE (J1650) SC SCH (10:29)
[2019-09-15] MEDS: OMEPRAZOLE 20 MG CAP PO SCH (10:30)
[2019-09-15] MEDS: CALCIUM CARBONATE 500 MG CHEW U/D PO SCH ×3 (10:30→20:26)
[2019-09-15] MEDS: NICOTINE 21MG/24HR 1 EA TRANSDERMAL TD SCH (10:30)
--- NOTE | 2019-09-15 10:55 | ECGEPIP ---
[facility] [place] Test Date: 2019-09-14 Pat Name: HAILEE CHAVEZ Department: Room: [place] [address] Gender: Female Manual Qa Tester: RADHAMES : 1980 Requested By: GARY PRAJAPATI Order Number: [id number] Reading MD: Jer Brown Measurements Intervals [place] Rate: 99 P: 39 SD: 133 QRS: 10 QRSD: 90 T: 17 QT: 351 QTc: 452 Interpretive Statements SINUS RHYTHM WITH MARKED SINUS ARRHYTHMIA MODERATE VOLTAGE CRITERIA FOR LVH, CONSIDER NORMAL VARIANT NONSPECIFIC T-WAVE ABNORMALITY MOST RECENT TRACING ON 09/13/2019 AT 21:14, NO SIGNIFICANT CHANGES BUT SLIGHTLY SLOWER HEART RATE Electronically Signed on 09-15-2019 10:55:07 EST by Jer Brown
[2019-09-15 13:06] LABS: ACETAMINOPHEN LEVEL 3.3 UG/ML (10.0-30.0); ALBUMIN 2.9 GM/DL (3.2-5.2); ALT/SGPT 16 U/L (12-78); BILIRUBIN,DIRECT < 0.1 MG/DL (0.0-0.2); BILIRUBIN,TOTAL 0.1 MG/DL (0.2-1.0); TOTAL PROTEIN 6.8 GM/DL (6.4-8.2)
[2019-09-15 14:00] VITALS: BP 178/88
[2019-09-15] MEDS ORDERED: traMADol 50 MG TAB PO PRN (14:00)
[2019-09-15] MEDS: ONDANSETRON 4MG/2ML VIAL (J2405) IV PRN (14:09)
--- NOTE | 2019-09-15 14:12 | IPNPDOC ---
Text Note Date of Service The patient was seen on 09/15/19. NOTE Subjective: Patient continues to have chest discomfort, dizziness. No any acute events overnight. Patient denies fever, chills, nausea, palpitations, diarrhea or dysuria Objective: VITAL SIGNS: Please see below. GENERAL APPEARANCE: Morbidly obese female HEENT: Normocephalic, atraumatic. Mucous members moist and pink CARDIOVASCULAR: Regular rate and rhythm. No murmurs, rubs or gallops. Radial pulses are intact. There is no lower extremity edema LUNGS: Diminished lung sounds ABDOMEN: Abdomen is soft, mildly tender in the right subphrenic area, obese MUSCULOSKELETAL: Range of motion is intact in all 4 extremities NEUROLOGICAL: Cranial nerves II-12 are grossly intact. Speech is not dysarthric Pt is 38-year-old female with past medical history of pseudotumor cerebri, A rnold Chiari malformation, and chronic neck pain who is admitted for management of Tylenol overdose Tylenol overdose Patient received NAC Today serum acetaminophen levels suddenly increased today to 80, repeated at 12.30 Tylenol level dropped to 3.3. Patient denied any acetaminophen intake during hospital stay. The Poison Control Center was contacted again, await jd edwards recommendation CMP monitor, continue to monitor Tylenol level No transaminitis, LFTs within normal limit Polysubstance abuse. Drug screen positive for opiates. She admits to using tobacco products. 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 Ingafran. Hypokalemia Replenished Tooth pain. Pain management Avoid Tylenol Obesity Her BMI is 42.3. Patient will benefit from bariatric surgery Chest discomfort EKG ordered Troponin We'll check BMP with magnesium VS,Fishbone, I+O VS, Fishbone, I+O Laboratory Tests 09/14/19 18:02 09/14/19 23:10 09/15/19 08:11 Vital Signs Date Time Temp Pulse Resp B/P (MAP) Pulse Ox O2 Delivery O2 Flow Rate FiO2 09/15/19 10:00 98.9 104 17 148/82 (104) 97 Room Air I&O- Last 24 Hours up to 6 AM 09/15/19 06:00 Intake Total 3007.15 ml Output Total 825 ml Balance 2182.15 ml GARY PRAJAPATI DO Sep 15, 2019 14:12
[2019-09-15] MEDS ORDERED: GI COCKTAIL 50ML BTL(HYOSCYAMINE/MAALOX/LIDOCAINE VISCOUS)(1:3:1) PO ONE (15:00)
[2019-09-15] MEDS ORDERED: CHLORTHALIDONE 25 MG TAB PO ONE (15:00)
[2019-09-15] MEDS ORDERED: amLODIPine 5 MG TAB PO ONE (15:00)
[2019-09-15 15:03] LABS: ACETAMINOPHEN LEVEL 2.4 UG/ML (10.0-30.0); ALBUMIN 2.9 GM/DL (3.2-5.2); ALT/SGPT 15 U/L (12-78); BILIRUBIN,DIRECT < 0.1 MG/DL (0.0-0.2); BLOOD UREA NITROGEN 20 MG/DL (7-18); CALCIUM LEVEL 8.8 MG/DL (8.5-10.1); CARBON DIOXIDE LEVEL 23 MEQ/L (21-32); CHLORIDE LEVEL 109 MEQ/L (98-107); CREATININE FOR GFR 0.82 MG/DL (0.55-1.30); GLOMERULAR FILTRATION RATE > 60.0 (>60); GLUCOSE, FASTING 121 MG/DL (70-100); MAGNESIUM LEVEL 1.8 MG/DL (1.8-2.4); POTASSIUM SERUM 4.1 MEQ/L (3.5-5.1); SODIUM LEVEL 140 MEQ/L (136-145); TOTAL PROTEIN 6.9 GM/DL (6.4-8.2); TROPONIN I < 0.02 NG/ML (< 0.10)
[2019-09-15 15:23] LABS: BILIRUBIN,TOTAL < 0.1 MG/DL (0.2-1.0)
[2019-09-15] MEDS ORDERED: MAGNESIUM OXIDE 400 MG TAB (MAG-OX) PO ONE (15:45)
[2019-09-15 18:00] VITALS: BP 172/92
[2019-09-15 18:32] LABS: ACETAMINOPHEN LEVEL < 2.0 UG/ML (10.0-30.0); ALBUMIN 3.1 GM/DL (3.2-5.2); ALT/SGPT 15 U/L (12-78); BILIRUBIN,DIRECT < 0.1 MG/DL (0.0-0.2); BILIRUBIN,TOTAL < 0.1 MG/DL (0.2-1.0); TOTAL PROTEIN 7.3 GM/DL (6.4-8.2)
[2019-09-15 22:00] VITALS: BP 150/92
[2019-09-16] MEDS: KETOROLAC 30 MG/ML VIAL (J1885) IV PRN ×2 (00:48→09:14)
[2019-09-16 02:00] VITALS: BP 142/76
[2019-09-16 02:20] LABS: ACETAMINOPHEN LEVEL < 2.0 UG/ML (10.0-30.0); ALT/SGPT 12 U/L (12-78); BILIRUBIN,DIRECT < 0.1 MG/DL (0.0-0.2); BILIRUBIN,TOTAL 0.1 MG/DL (0.2-1.0); TOTAL PROTEIN 6.6 GM/DL (6.4-8.2)
[2019-09-16 06:00] VITALS: BP 144/92
[2019-09-16] MEDS ORDERED: OMEPRAZOLE 20 MG CAP PO SCH (09:00)
[2019-09-16] MEDS ORDERED: CHLORTHALIDONE 25 MG TAB PO SCH (09:00)
[2019-09-16] MEDS ORDERED: MAGNESIUM OXIDE 400 MG TAB (MAG-OX) PO SCH (09:00)
[2019-09-16] MEDS ORDERED: INFLUENZA QUADRIVALENT PF VACCINE 0.5ML SYRINGE (90686) IM ONE (09:00)
[2019-09-16] MEDS: NICOTINE 21MG/24HR 1 EA TRANSDERMAL TD SCH (09:00)
[2019-09-16] MEDS ORDERED: amLODIPine 5 MG TAB PO SCH (09:00)
[2019-09-16] MEDS: CALCIUM CARBONATE 500 MG CHEW U/D PO SCH (09:10)
[2019-09-16] MEDS: ENOXAPARIN 40 MG/0.4 ML SYRINGE (J1650) SC SCH (09:13)
[2019-09-16 09:15] VITALS: BP 165/96
[2019-09-16] MEDS ORDERED: CHLO25TA PO (09:31)
[2019-09-16] MEDS ORDERED: AMLO5TAB6 PO (09:31)
[2019-09-16 10:00] VITALS: BP 138/81
[2019-09-16 10:34] LABS: ALT/SGPT 14 U/L (12-78); BILIRUBIN,DIRECT < 0.1 MG/DL (0.0-0.2); BILIRUBIN,TOTAL 0.2 MG/DL (0.2-1.0)
[2019-09-16] MEDS ORDERED: TRAM50TA2 PO (11:24)
[2019-09-16] MEDS ORDERED: IBUP-1022 PO (11:24)
--- NOTE | 2019-09-16 14:05 | DS.PDOC ---
Discharge Summary General Date of Admission Sep 14, 2019 at 01:31 Date of Discharge 09/16/19 Discharge Summary PROCEDURES PERFORMED DURING STAY: [None]. ADMITTING DIAGNOSES: Tylenol overdose Polysubstance abuse Nausea Hypokalemia Tooth pain Obesity Chest discomfort Hypertension DISCHARGE DIAGNOSES: Tylenol overdose Polysubstance abuse Nausea Hypokalemia Tooth pain Obesity Chest discomfort Hypertension COMPLICATIONS/CHIEF COMPLAINT: Tylenol O/D. HISTORY OF PRESENT ILLNESS: As is a 38-year-old female who presents with complaints of feeling funny. Specifically, she's been having cramping abdominal pain, dizziness, chest discomfort, and 3 episodes of emesis. She is not sure if there is blood in the vomitus. She is also been having right-sided 10 out of 10 in severity tooth pain for about 3 days. As result of the pain she has in having had difficulty sleeping. She's been taking Tylenol, ibuprofen and Excedrin but cannot quantify the amount that she has taken. She has seen a dentist for her teeth there are plans to pull her teeth and about 10 months. HOSPITAL COURSE: During hospital stay following issue addressed Tylenol overdose Patient received NAC Tylenol level became within normal limit No transaminitis, LFTs within normal limit Polysubstance abuse. Drug screen positive for opiates. She admits to using tobacco products. 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 ALLERGIES: Please see below. PHYSICAL EXAMINATION ON DISCHARGE: VITAL SIGNS: Please see below. .GENERAL APPEARANCE: Morbidly obese female HEENT: Normocephalic, atraumatic. Mucous members moist and pink CARDIOVASCULAR: Regular rate and rhythm. No murmurs, rubs or gallops. Radial pulses are intact. There is no lower extremity edema LUNGS: Diminished lung sounds ABDOMEN: Abdomen is soft, nt, obese MUSCULOSKELETAL: Range of motion is intact in all 4 extremities NEUROLOGICAL: Cranial nerves II-12 are grossly intact. Speech is not dysarthric LABORATORY DATA: Please see below. IMAGING: None PROGNOSIS: Favorable ACTIVITY: [As tolerated]. DIET: Cardiac DISCHARGE PLAN: Home DISPOSITION: Home, Self-Care. DISCHARGE INSTRUCTIONS: Do not take Tylenol ITEMS TO FOLLOWUP ON ON OUTPATIENT: PCP DISCHARGE CONDITION: [Stable]. TIME SPENT ON DISCHARGE: Greater than minutes. Vital Signs/I&Os Vital Signs Date Time Temp Pulse Resp B/P (MAP) Pulse Ox O2 Delivery O2 Flow Rate FiO2 09/16/19 10:00 98.1 96 17 138/81 (100) 98 Room Air I&O- Last 24 Hours up to 6 AM 09/16/19 06:00 Intake Total 1536 ml Output Total 500 ml Balance 1036 ml Laboratory Data Labs 24H Laboratory Tests 2 09/15/19 14:24: Anion Gap 8, Glomerular Filtration Rate > 60.0, Calcium Level 8.8, Magnesium Level 1.8, Total Bilirubin < 0.1L, Direct Bilirubin < 0.1, Aspartate Amino Transf (AST/SGOT) 7, Alanine Aminotransferase (ALT/SGPT) 15, Alkaline Phosphatase 78, Troponin I < 0.02, Total Protein 6.9, Albumin 2.9L, [place] min/Globulin Ratio 0.73L, Acetaminophen Level 2.4L 09/15/19 17:53: Total Bilirubin < 0.1L, Direct Bilirubin < 0.1, Aspartate Amino Transf (AST/SGOT) 11, Alanine Aminotransferase (ALT/SGPT) 15, Alkaline Phosphatase 83, Total Protein 7.3, Albumin 3.1L, Albumin/Globulin Ratio 0.74L, Acetaminophen Level < 2.0L 09/15/19 21:42: Acetaminophen Level < 2.0L 09/16/19 01:44: Total Bilirubin 0.1L, Direct Bilirubin < 0.1, Aspartate Amino Transf (AST/SGOT) 8, Alanine Aminotransferase (ALT/SGPT) 12, Alkaline Phosphatase 83, Total Protein 6.6, Albumin 3.0L, Albumin/Globulin Ratio 0.83L, Acetaminophen Level < 2.0L 09/16/19 06:04: Acetaminophen Level < 2.0L 09/16/19 09:52: Acetaminophen Level < 2.0L, Total Bilirubin 0.2#, Direct Bilirubin < 0.1, Aspartate Amino Transf (AST/SGOT) 10, Alanine Aminotransferase (ALT/SGPT) 14, Alkaline Phosphatase 89, Total Protein 7.0, Albumin 3.0L, Albumin/Globulin Ratio 0.75L CBC/BMP Laboratory Tests 09/15/19 14:24 Discharge Medications Scheduled Amlodipine Besylate (Amlodipine Besylate) 5 Mg Tablet, 5 MG PO DAILY Chlorthalidone (Chlorthalidone) 25 Mg Tablet, 25 MG PO DAILY Omeprazole (Omeprazole) 40 Mg Capsule.dr, 40 MG PO DAILY, (Reported) Varenicline Tartrate (Chantix) 1 Mg Tablet, 1 MG PO BID, (Reported) Scheduled PRN Aspirin/Acetaminophen/Caffeine (Excedrin Migraine Caplet) 1 Each Tablet, 2 TAB PO Q6H PRN for PAIN, (Reported) Ibuprofen (Ibuprofen) 800 Mg Tablet, 800 MG PO TID PRN for PAIN, (Reported) Ibuprofen (Ibuprofen) 600 Mg Tablet, 600 MG PO Q6H PRN for DENTAL PAIN Linaclotide (Linzess) 290 Mcg Cap, 1 CAP PO DAILY PRN for CONSTIPATION, (Reported) Tramadol HCl (Tramadol HCl) 50 Mg Tablet, 50 MG PO Q6HP PRN for pain Allergies Coded Allergies: acetazolamide (Verified Allergy, Unknown, throat closes, 05/27/19) diclofenac (Verified Allergy, Unknown, throat closes, 05/27/19) milk (Verified Allergy, Unknown, throat closing, 05/27/19) GARY PRAJAPATI DO Sep 16, 2019 14:05
--- NOTE | 2019-09-16 23:22 | ECGEPIP ---
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
== END 2019-09-16 12:25 | disposition home or self-care (01) | DRG 918 ==
LOC: M ED 20:42 → M ED INP 09-14 01:31 → ENRESERV 09-14 02:20 → M ICU 09-14 03:34 → M MSPAV 09-14 12:53
PROVIDERS: ADMIT Internal Medicine; ATTEND Internal Medicine
DX: T39.1X1A Poisoning by 4-Aminophenol derivatives, accidental (unintentional), initial encounter (principal); Z68.41 Body mass index [BMI] 40.0-44.9, adult; I47.2 Ventricular tachycardia; F17.210 Nicotine dependence, cigarettes, uncomplicated; Z89.022 Acquired absence of left finger(s); Q07.00 Arnold-Chiari syndrome without spina bifida or hydrocephalus; M54.2 Cervicalgia; F10.11 Alcohol abuse, in remission; R11.0 Nausea; E87.6 Hypokalemia; K08.89 Other specified disorders of teeth and supporting structures; E66.9 Obesity, unspecified; Z79.899 Other long term (current) drug therapy; Z88.8 Allergy status to other drugs, medicaments and biological substances; Z91.011 Allergy to milk products; E83.42 Hypomagnesemia; I10 Essential (primary) hypertension

== ENCOUNTER → 2020-01-29 | Outpatient (CLI) | payer MEDICARE, MEDICAID ==
[~2020-01-29] MED LIST changes: +ACET-841 PO; +AMLO5TAB6 PO; +CHAN1PAK13 PO; +CHLO25TA PO; +EXCETAB33 PO; +IBUP-1022 PO; +IBUP1TAB7 PO; +OMEP-221 PO
[2020-01-29 16:57] LABS: ESTRADIOL 273.6 PG/ML; PROGESTERONE 18.2 NG/ML
== END ==
LOC: M LAB 15:25
PROVIDERS: ATTEND Obstetrics & Gynecology Reproductive Endocrinology
DX: E28.9 Ovarian dysfunction, unspecified (principal)

== ENCOUNTER → 2020-02-01 | Outpatient (CLI) | payer MEDICARE, MEDICAID ==
--- NOTE | 2020-02-02 08:06 | REP ---
FIRST TRIMESTER OBSTETRIC SONOGRAPHY: HISTORY: Supervision of . First trimester study. FINDINGS: Transabdominal and transvaginal scanning are performed. A single living intrauterine gestation is seen. The crown-rump length of the embryonic pole is 3 mm, corresponding with a 7-wcic-5-day gestational age estimate. heart rate is recorded at 102 beats per minute. No subchorionic hemorrhage seen. There are small bilateral maternal ovarian cysts. There is a 2.3 x 1.5 x 1.6 cm hypoechoic area in the uterine fundus which may be a small fibroid. IMPRESSION: Viable single intrauterine gestation at 6 weeks 0 days by crown-rump length. NITA by sonography, September 26, 2020.
== END ==
LOC: M WHC 12:53
PROVIDERS: ATTEND Obstetrics & Gynecology Reproductive Endocrinology
DX: Z36.89 Encounter for other specified antenatal screening (principal); E28.9 Ovarian dysfunction, unspecified; Z3A.01 Less than 8 weeks gestation of pregnancy

== ENCOUNTER → 2020-02-14 | Outpatient (REF) | payer MEDICARE, MEDICAID ==
[2020-02-14 18:45] LABS: HEMATOCRIT 35.8 % (36.0-47.0); HEMOGLOBIN 11.8 g/dl (12.0-15.5); MEAN CORPUSCULAR HEMOGLOBIN 29.9 pg (27.0-33.0); MEAN CORPUSCULAR VOLUME 90.6 fl (80.0-96.0); PLATELET COUNT, AUTOMATED 419 10^3/uL (150-450); RED BLOOD COUNT 3.95 10^6/uL (4.00-5.40); WHITE BLOOD COUNT 9.7 10^3/uL (4.0-10.0)
[2020-02-15 08:55] LABS: HEPATITIS B SURFACE ANTIGEN NEGATIVE (NEGATIVE); HEPATITIS C VIRUS ABY INDEX 0.2 INDEX (<0.8); HIV 1&2 SCREEN CENTAUR NEGATIVE (NEGATIVE)
== END ==
LOC: M LAB REF 17:32
PROVIDERS: ATTEND Obstetrics & Gynecology
DX: O36.80X0 Pregnancy with inconclusive fetal viability, not applicable or unspecified (principal)

== ENCOUNTER → 2020-05-05 | Outpatient (CLI) | payer MEDICARE, MEDICAID ==
[~2020-05-05] MED LIST changes: +ACET1TAB16 PO; +AMLO1TAB24 PO; -AMLO5TAB6 PO; +TESS100C PO
--- NOTE | 2020-05-15 13:09 | REP ---
OBSTETRIC SONOGRAPHY HISTORY: Supervision of for anatomy. FINDINGS: Scanning through the gravid uterus demonstrates a single living intrauterine gestation in a transverse, head to the maternal left lie. motion was observed, and heart rate was recorded at 144 beats per minute. A posterior grade 0 placenta is seen without evidence of previa or abruption. Amniotic fluid is subjectively normal. Closed cervical length views transabdominally measures 4.3 cm. There is a probable 3.4 cm anterior uterine fibroid. No extrauterine abnormalities observed. Exam quality is inhibited by maternal body habitus and position. The following anatomic structures are not visualized due to position and maternal body habitus: Facial profile, nose and lips, four chamber heart with outflow tract views, kidneys, placental cord insertion, diaphragm, and spine. The following anatomic structures are identified and felt to be unremarkable: cranium, choroid plexus, cerebellum, cerebral ventricles and falx, cavum septum pellucidum, left-sided stomach, abdominal wall cord insertion, urinary bladder, upper and lower extremities, and three vessel cord. BIOMETRY CHART: BPD 4.1 cm 18 weeks 3 days Head Circumference 15.5 cm 18 weeks 3 days Abdominal Circumference 12.9 mm 18 weeks 3 days Femur Length 2.8 cm 18 weeks 4 days Humeral Length 2.7 cm 18 weeks 4 days Estimated Weight 244 g, 0 lbs 8 oz Less than 3rd percentile for 20 weeks 0 days HC/AC ratio normal 1.20, cephalic index normal 0.73. IMPRESSION: Viable single intrauterine gestation at 18 weeks 3 days by today's composite sonographic criteria. NITA by today's sonography October 03, 2020. anatomic survey limited due to maternal body habitus and position, transverse lie. MTDD
== END ==
LOC: M WHC 14:23
PROVIDERS: ATTEND Obstetrics & Gynecology
DX: Z34.82 Encounter for supervision of other normal pregnancy, second trimester (principal); Z3A.18 18 weeks gestation of pregnancy

== ENCOUNTER → 2020-06-02 | Outpatient (CLI) | payer MEDICARE, MEDICAID ==
[~2020-06-02] MED LIST changes: -ACET1TAB16 PO
--- NOTE | 2020-06-02 13:26 | REP ---
INDICATION: EFW COMPARISON: 05/05/2020 TECHNIQUE: Transabdominal obstetrical ultrasound with color Doppler evaluation. FINDINGS: Examination demonstrates a single live intrauterine in cephalic presentation. motion is identified by technologist. Placenta is noted posterior and grade 1 without evidence for placenta previa or abruption. Amniotic fluid volume is normal. Cervix measures 3.1 cm in length and appears closed. No evidence for nuchal cord. Gestational age by 1st U/S 22 weeks 3 days with NITA 10/03/2020. Gestational age by current measurements 23 weeks 1 day with NITA 09/28/2020. FHR equals 136 beats per minute. BPD: 5.4 cm 22 weeks 3 days HC: 20.9 cm 23 weeks 0 days AC: 19.1 cm 23 weeks 6 days FL: 4.1 cm 23 weeks 1 day HL: 3.7 cm 23 weeks 1 day HC/AC: 1.10 Estimated weight 593 grams (86thpercentile). No obvious abnormalities identified although anatomical assessment is significantly limited and suboptimal due to position and maternal body habitus. IMPRESSION: Single live intrauterine in cephalic presentation demonstrating appropriate estimated weight and interval growth. Limited anatomical assessment due to positioning and maternal body habitus. <Electronically signed by Mason Rene > 06/02/20 1737
== END ==
LOC: M WHC 08:56
PROVIDERS: ATTEND Obstetrics & Gynecology
DX: Z34.82 Encounter for supervision of other normal pregnancy, second trimester (principal)

== ENCOUNTER 2020-06-08 00:14 | Emergency (ER) | payer MEDICARE, MEDICAID ==
[~2020-06-08] VITALS: Ht 162.6 cm; Wt 113.6 kg
[~2020-06-08 00:14] MED LIST changes: -TESS100C PO
[2020-06-08] MEDS ORDERED: BENZONATATE 100 MG CAP PO ONE (01:00)
[2020-06-08] MEDS ORDERED: TESS100C PO (02:08)
[2020-06-08 02:14] VITALS: BP 150/87
--- NOTE | 2020-06-08 08:18 | REP ---
INDICATION: COUGH COMPARISON: 10/01/2016 TECHNIQUE: Portable AP view of the chest FINDINGS: The mediastinum and cardiac silhouette are stable and within normal limits for portable technique. The lung reddy are clear without acute consolidation, effusion, or pneumothorax. Skeletal structures are intact. IMPRESSION: No acute cardiopulmonary process appreciated. <Electronically signed by Mason Rene > 06/08/20 0860
== END 2020-06-08 02:16 | disposition home or self-care (01) ==
LOC: M ED 00:14
DX: O99.512 Diseases of the respiratory system complicating pregnancy, second trimester (principal); R05 Cough; J45.909 Unspecified asthma, uncomplicated; O26.892 Other specified pregnancy related conditions, second trimester; R10.9 Unspecified abdominal pain; Z3A.27 27 weeks gestation of pregnancy; Z88.1 Allergy status to other antibiotic agents; Z88.8 Allergy status to other drugs, medicaments and biological substances; Z91.011 Allergy to milk products; Z79.899 Other long term (current) drug therapy; Z79.891 Long term (current) use of opiate analgesic

== ENCOUNTER 2020-06-23 14:26 | Emergency (ER) | payer MEDICARE, MEDICAID ==
[~2020-06-23] VITALS: Ht 162.6 cm; Wt 117.4 kg
[2020-06-23 14:26] VITALS: BP 236/138
[~2020-06-23 14:26] MED LIST changes: +TESS100C PO
[2020-06-23] MEDS ORDERED: ZOFR4TAB16 PO (15:47)
[2020-06-23] MEDS ORDERED: PRENTAB9 PO (15:47)
[2020-06-23] MEDS ORDERED: ACET1TAB16 PO (16:35)
== END 2020-06-23 15:11 | disposition admitted as inpatient to this hospital (09) ==
LOC: M ED 14:26
DX: O16.2 Unspecified maternal hypertension, second trimester (principal); Z3A.20 20 weeks gestation of pregnancy; Z79.899 Other long term (current) drug therapy; Z88.8 Allergy status to other drugs, medicaments and biological substances; Z91.011 Allergy to milk products

== ENCOUNTER 2020-06-23 14:48 | Outpatient (CLI) | payer MEDICARE, MEDICAID ==
[2020-06-23] VITALS (8 sets, daily range): BP systolic 151–187; BP diastolic 63–107
[~2020-06-23] VITALS: Ht 162.6 cm; Wt 117.3 kg
[2020-06-23] MEDS ORDERED: ZOFR4TAB16 PO (15:47)
[2020-06-23] MEDS ORDERED: PRENTAB9 PO (15:47)
[2020-06-23] MEDS ORDERED: ACET1TAB16 PO (16:35)
[2020-06-23 16:56] LABS: TOTAL PROTEIN,RANDOM URINE 39.4 MG/DL (0.0-12.0)
[2020-06-23 16:58] LABS: INFLUENZA A AMPLIFICATION NEGATIVE (NEGATIVE); INFLUENZA B AMPLIFICATION NEGATIVE (NEGATIVE)
[2020-06-23 17:13] LABS: HEMATOCRIT 31.6 % (36.0-47.0); HEMOGLOBIN 10.5 g/dl (12.0-15.5); MEAN CORPUSCULAR HEMOGLOBIN 29.9 pg (27.0-33.0); MEAN CORPUSCULAR HGB CONC 33.2 g/dl (32.0-36.5); PLATELET COUNT, AUTOMATED 462 10^3/uL (150-450); RED BLOOD COUNT 3.51 10^6/uL (4.00-5.40); WHITE BLOOD COUNT 9.1 10^3/uL (4.0-10.0)
[2020-06-23 17:38] LABS: ALBUMIN 2.6 GM/DL (3.2-5.2); ALT/SGPT 10 U/L (12-78); BILIRUBIN,TOTAL 0.2 MG/DL (0.2-1.0); BLOOD UREA NITROGEN 3 MG/DL (7-18); CALCIUM LEVEL 8.6 MG/DL (8.5-10.1); CARBON DIOXIDE LEVEL 26 MEQ/L (21-32); CHLORIDE LEVEL 104 MEQ/L (98-107); CREATININE FOR GFR 0.57 MG/DL (0.55-1.30); GLOMERULAR FILTRATION RATE > 60.0 (>60); GLUCOSE, FASTING 112 MG/DL (70-100); POTASSIUM SERUM 3.3 MEQ/L (3.5-5.1); SODIUM LEVEL 137 MEQ/L (136-145); TOTAL PROTEIN 6.9 GM/DL (6.4-8.2); URIC ACID 4.1 MG/DL (2.6-6.0)
== END 2020-06-23 18:08 | disposition home or self-care (01) ==
LOC: M LDO 14:48
PROVIDERS: ATTEND Obstetrics & Gynecology
DX: O16.9 Unspecified maternal hypertension, unspecified trimester (principal); R05 Cough; Z3A.26 26 weeks gestation of pregnancy; Z79.899 Other long term (current) drug therapy
CPT/HCPCS: 36415; 80053; 82570; 84156; 84550; 85027; 87502; 99281; U0002

== ENCOUNTER → 2020-07-09 | Outpatient (CLI) | payer MEDICARE, MEDICAID ==
[~2020-07-09] MED LIST changes: +ACET1TAB16 PO; +CLAR10CA3 PO; +LABE20TAB PO; +VERAP80TA PO
[2020-07-09 13:53] LABS: HEMATOCRIT 30.2 % (36.0-47.0); HEMOGLOBIN 9.7 g/dl (12.0-15.5); MEAN CORPUSCULAR HGB CONC 32.1 g/dl (32.0-36.5); MEAN CORPUSCULAR VOLUME 90.4 fl (80.0-96.0); PLATELET COUNT, AUTOMATED 456 10^3/uL (150-450); RED BLOOD COUNT 3.34 10^6/uL (4.00-5.40); WHITE BLOOD COUNT 11.5 10^3/uL (4.0-10.0)
== END ==
LOC: M LAB 11:51
PROVIDERS: ATTEND Obstetrics & Gynecology
DX: Z34.82 Encounter for supervision of other normal pregnancy, second trimester (principal)

== ENCOUNTER 2020-07-11 23:28 | Outpatient (CLI) | payer MEDICARE, MEDICAID ==
[~2020-07-11] VITALS: Ht 162.6 cm; Wt 115.2 kg
[~2020-07-11 23:28] MED LIST changes: -CLAR10CA3 PO; -LABE20TAB PO; -VERAP80TA PO
[2020-07-12 00:05] VITALS: BP 157/86
[2020-07-12 00:20] VITALS: BP 140/76
--- NOTE | 2020-07-12 01:25 | IPNPDOC ---
Text Note Date of Service The patient was seen on 07/12/20. NOTE Outpatient 39yo NITA 10/03/20. Presents @ 28wks with multiple complaints. Reports long standing harsh cough over many months that is productive of clear sputum; abdominal "bulge" when coughing; lower extremity pitting edema that often travels up to her thighs. [place] [facility] [place] 29 [place]. Has had no cardiac followup since arriving here. This history is not recorded in her record. Was recently started on verapamil by her primary and was told she had bronchitis, treated with antibiotics. Reports chronic tobacco use, now down to 1/2 ppd. Morbid obesity Mild hypertension noted upon arrival, 163/82, 157/86, 140/76 Voice is gravely. Appears somewhat short of breath while speaking Fetus is very active. Unable to obtain conclusive NST Abdomen soft, obese, gravid. Reported bulge is in upper right quadrant with cough or exertion. BPP ordered. Preeclampsia panel ordered. F/U per results. Needs primary care workup for possible underlying cardiac disease. VS,Fishbone, I+O VS, Fishbone, I+O Vital Signs Date Time Temp Pulse Resp B/P (MAP) Pulse Ox O2 Delivery O2 Flow Rate FiO2 07/12/20 00:20 107 140/76 (97) Margarita Hernandez CNM Jul 12, 2020 01:25
--- NOTE | 2020-07-12 01:38 | REPVR ---
PROCEDURE INFORMATION: Exam: US Biophysical Profile Without Non-Stress Test Exam date and time: 07/12/2020 1:20 AM Age: 39 years old Clinical indication: Other: Inconclusive nst; ; Additional info: Inconclusive nst, HTN TECHNIQUE: Imaging protocol: US biophysical profile without non-stress testing. COMPARISON: OBS LIMITED US 06/02/2020 9:21 AM FINDINGS: Biophysical profile score is 8 of a possible 8. Gross body movement score = 2. breathing movement score = 2. tone score = 2. Qualitative amniotic fluid volume score = 2. heart rate with Doppler is 160beats/min. Amniotic fluid index is 18.3 cm. position is cephalic. Placental position is posterior. No evidence of placenta previa. IMPRESSION: Biophysical profile score 8 out of a possible 8. Electronically signed by: Simeon Tamayo On 07/12/2020 01:38:12 AM
[2020-07-12 02:07] LABS: HEMOGLOBIN 9.3 g/dl (12.0-15.5); MEAN CORPUSCULAR HEMOGLOBIN 29.2 pg (27.0-33.0); MEAN CORPUSCULAR HGB CONC 33.2 g/dl (32.0-36.5); MEAN CORPUSCULAR VOLUME 88.1 fl (80.0-96.0); PLATELET COUNT, AUTOMATED 428 10^3/uL (150-450); RED BLOOD COUNT 3.18 10^6/uL (4.00-5.40); WHITE BLOOD COUNT 10.6 10^3/uL (4.0-10.0)
[2020-07-12 02:45] LABS: ALT/SGPT 13 U/L (12-78); BILIRUBIN,TOTAL 0.2 MG/DL (0.2-1.0); BLOOD UREA NITROGEN 6 MG/DL (7-18); CALCIUM LEVEL 8.3 MG/DL (8.5-10.1); CARBON DIOXIDE LEVEL 27 MEQ/L (21-32); CHLORIDE LEVEL 102 MEQ/L (98-107); CREATININE FOR GFR 0.41 MG/DL (0.55-1.30); GLOMERULAR FILTRATION RATE > 60.0 (>60); GLUCOSE, FASTING 87 MG/DL (70-100); LDH LACTATE DEHYDROGENASE 147 U/L (84-246); POTASSIUM SERUM 2.8 MEQ/L (3.5-5.1); SODIUM LEVEL 136 MEQ/L (136-145); TOTAL PROTEIN 6.5 GM/DL (6.4-8.2); URIC ACID 4.6 MG/DL (2.6-6.0)
--- NOTE | 2020-07-12 03:02 | IPNPDOC ---
Text Note Date of Service The patient was seen on 07/12/20. NOTE Outpatient BPP 8/8 CBC today 10.6>9.3/28.0<428 Previous from 06/23/2020- 9.1>10.5/31.6<462 CMP today - BUN 6, Creatinine 0.41, K 2.8, AST/ALT 25/13, Uric acid 4.6 Previous from 06/23/2020 - BUN 3, K 3.3, AST/ALT 21/10, Uric acid 4.1 Report given to charge nurse in ED for immediate evaluation and treatment. Pt transported via wheelchair. VS,Fishbone, I+O VS, Fishbone, I+O Laboratory Tests 07/12/20 01:59 Vital Signs Date Time Temp Pulse Resp B/P (MAP) Pulse Ox O2 Delivery O2 Flow Rate FiO2 07/12/20 00:20 107 140/76 (97) Margarita Hernandez CNM Jul 12, 2020 03:02
[2020-07-12] MEDS ORDERED: OMEP40CA97 PO (03:31)
[2020-07-12] MEDS ORDERED: VERAP80TA PO (03:31)
[2020-07-12] MEDS ORDERED: CLAR10CA3 PO (03:31)
[2020-07-12] MEDS ORDERED: LABE20TAB PO (06:29)
== END 2020-07-12 04:43 | disposition other institution (70) ==
LOC: M LDO 23:28
PROVIDERS: ATTEND Advanced Practice Midwife
DX: O09.522 Supervision of elderly multigravida, second trimester (principal); O99.332 Smoking (tobacco) complicating pregnancy, second trimester; O09.212 Supervision of pregnancy with history of pre-term labor, second trimester; O99.213 Obesity complicating pregnancy, third trimester; O26.892 Other specified pregnancy related conditions, second trimester; E66.01 Morbid (severe) obesity due to excess calories; F17.210 Nicotine dependence, cigarettes, uncomplicated; R05 Cough; R60.0 Localized edema; Z3A.28 28 weeks gestation of pregnancy

== ENCOUNTER 2020-07-12 03:10 | Emergency (ER) | payer MEDICARE, MEDICAID ==
[~2020-07-12] VITALS: Ht 162.6 cm; Wt 114.8 kg
[2020-07-12] MEDS ORDERED: VERAP80TA PO (03:31)
[2020-07-12] MEDS ORDERED: CLAR10CA3 PO (03:31)
[2020-07-12] MEDS ORDERED: OMEP40CA97 PO (03:31)
[2020-07-12] MEDS ORDERED: LABE20TAB PO (06:29)
[2020-07-12] MEDS ORDERED: LABETALOL 200 MG TAB PO ONE (06:30)
[2020-07-12 07:14] VITALS: BP 176/89
[2020-07-12 07:15] VITALS: BP 177/93
== END 2020-07-12 07:16 | disposition home or self-care (01) ==
LOC: M ED 03:10
DX: O16.3 Unspecified maternal hypertension, third trimester (principal); O99.63 Diseases of the digestive system complicating the puerperium; K46.9 Unspecified abdominal hernia without obstruction or gangrene; O99.413 Diseases of the circulatory system complicating pregnancy, third trimester; I25.2 Old myocardial infarction; R60.0 Localized edema; O99.213 Obesity complicating pregnancy, third trimester; O99.513 Diseases of the respiratory system complicating pregnancy, third trimester; J45.909 Unspecified asthma, uncomplicated; Z79.899 Other long term (current) drug therapy; Z3A.29 29 weeks gestation of pregnancy; Z88.8 Allergy status to other drugs, medicaments and biological substances; Z91.011 Allergy to milk products

== ENCOUNTER 2020-08-13 14:59 | Inpatient (IN) | payer MEDICARE, MEDICAID ==
[2020-08-13] VITALS (9 sets, daily range): BP systolic 127–168; BP diastolic 78–101
[~2020-08-13] VITALS: Ht 162.6 cm; Wt 114.6 kg
[~2020-08-13 14:59] MED LIST changes: -NIFE1TAB52 PO; -PERCOCET PO
[2020-08-13] MEDS ORDERED: PRENTAB9 PO (15:38)
[2020-08-13] MEDS: LR 300 ML IV SCH (16:00)
[2020-08-13 16:26] LABS: HEMOGLOBIN 9.7 g/dl (12.0-15.5); MEAN CORPUSCULAR HEMOGLOBIN 29.2 pg (27.0-33.0); MEAN CORPUSCULAR HGB CONC 32.3 g/dl (32.0-36.5); MEAN CORPUSCULAR VOLUME 90.4 fl (80.0-96.0); PLATELET COUNT, AUTOMATED 406 10^3/uL (150-450); RED BLOOD COUNT 3.32 10^6/uL (4.00-5.40); WHITE BLOOD COUNT 9.2 10^3/uL (4.0-10.0)
[2020-08-13 16:36] LABS: APPEARANCE, URINE HAZY (CLEAR); BACTERIA, URINE AUTO 1+ (NEGATIVE); BILIRUBIN, URINE AUTO NEGATIVE (NEGATIVE); BLOOD, URINE BLOOD NEGATIVE (NEGATIVE); COLOR, URINE YELLOW (YELLOW); GLUCOSE, URINE (UA) AUTO NEGATIVE (NEGATIVE); KETONE, URINE AUTO 2+ mg/dL (NEGATIVE); LEUKOCYTE ESTERASE, URINE AUTO NEGATIVE (NEGATIVE); NITRITE, URINE AUTO NEGATIVE (NEGATIVE); PROTEIN, URINE AUTO 1+ mg/dL (NEGATIVE); RBC, URINE AUTO 1 /HPF (0-3); SPECIFIC GRAVITY URINE AUTO 1.013 (1.002-1.035); SQUAMOUS EPITHELIAL CELL UR AU 2 /HPF (0-6); WBC, URINE AUTO 6 /HPF (0-3)
[2020-08-13 16:48] LABS: TOTAL PROTEIN,RANDOM URINE 64.9 MG/DL (0.0-12.0)
[2020-08-13 16:53] LABS: ALT/SGPT 9 U/L (12-78); BILIRUBIN,TOTAL 0.4 MG/DL (0.2-1.0); CREATININE FOR GFR 0.39 MG/DL (0.55-1.30); GLOMERULAR FILTRATION RATE > 60.0 (>60); LDH LACTATE DEHYDROGENASE 244 U/L (84-246); URIC ACID 4.5 MG/DL (2.6-6.0)
--- NOTE | 2020-08-13 17:32 | REP ---
INDICATION: 32 5/7wks ft/60%/-3 R/O PREECLAMPSIA/EFW/IRENE COMPARISON: 07/12/2020 TECHNIQUE: Transabdominal obstetrical ultrasound with color Doppler evaluation. FINDINGS: Examination demonstrates a single live intrauterine in cephalic presentation. motion is identified by technologist. Placenta is noted left lateral and grade 2 without evidence for placenta previa or abruption. Amniotic fluid volume is normal. Cervix measures 2.5 cm in length and appears closed and without evidence for funneling at the internal os. Gestational age by LMP 33 weeks 6 days with NITA 09/25/2020. Gestational age by current measurements 32 weeks 5 days with NITA 10/06/2020. FHR equals 158 beats per minute. IRENE: 11.7 cm (8.5-24.3) Estimated weight 1892 grams (51stpercentile). Umbilical artery 1 SD ratio: 2.69 (1.82-3.83) Middle cerebral artery SD ratio: 9.00 IMPRESSION: Single live intrauterine demonstrating appropriate estimated weight. Amniotic fluid index is normal. Cervix appears shortened at 2.5 cm without funneling at the closed internal os. <Electronically signed by Mason Rene > 08/13/20 2294
[2020-08-13] MEDS: BETAMETHASONE SOLUSPAN 6MG/ML 5ML VIAL (J0702 PER 3MG) IM SCH (18:34)
[2020-08-13] MEDS ORDERED: LABETALOL 200 MG TAB PO SCH (21:00)
[2020-08-13] MEDS: ACETAMINOPH W/CODEINE #3 TAB UD PO PRN (21:03)
[2020-08-13] MEDS: LR 1,000 ML IV SCH (21:05)
[2020-08-14] VITALS (30 sets, daily range): BP systolic 113–174; BP diastolic 57–99
[2020-08-14] MEDS: LR 300 ML IV SCH (03:02)
[2020-08-14] MEDS: BETAMETHASONE SOLUSPAN 6MG/ML 5ML VIAL (J0702 PER 3MG) IM SCH (06:25)
[2020-08-14 07:09] LABS: MEAN CORPUSCULAR HEMOGLOBIN 29.6 pg (27.0-33.0); MEAN CORPUSCULAR HGB CONC 32.3 g/dl (32.0-36.5); MEAN CORPUSCULAR VOLUME 91.7 fl (80.0-96.0); PLATELET COUNT, AUTOMATED 399 10^3/uL (150-450); RED BLOOD COUNT 3.38 10^6/uL (4.00-5.40); WHITE BLOOD COUNT 9.2 10^3/uL (4.0-10.0)
[2020-08-14 07:38] LABS: ALT/SGPT 9 U/L (12-78); BILIRUBIN,TOTAL 0.2 MG/DL (0.2-1.0); CREATININE FOR GFR 0.45 MG/DL (0.55-1.30); GLOMERULAR FILTRATION RATE > 60.0 (>60); LDH LACTATE DEHYDROGENASE 174 U/L (84-246); URIC ACID 4.6 MG/DL (2.6-6.0)
[2020-08-14] MEDS: LABETALOL 100 MG TAB PO SCH ×2 (09:13→20:52)
[2020-08-14] MEDS: LR 1,000 ML IV SCH ×2 (11:11→18:23)
[2020-08-14] MEDS: ACETAMINOPH W/CODEINE #3 TAB UD PO PRN (14:08)
[2020-08-14] MEDS ORDERED: ONDANSETRON 4MG/2ML VIAL IV PRN (15:45)
[2020-08-14] MEDS: NIFEdipine 10 MG CAP PO SCH ×2 (16:19→21:46)
--- NOTE | 2020-08-14 16:47 | HPE ---
HISTORY AND PHYSICAL DATE OF ADMISSION: 08/14/2020 HISTORY OF PRESENT ILLNESS: Mira is a 39-year-old female 4 para 2-1-3 who is approximately 32 and 5/7th weeks gestation with an EDC of 10/03/2020 based on a first trimester ultrasound. She was sent to Labor and Delivery for monitoring after presenting to the office with complaints of contractions. She was found to have an elevated blood pressure. She does have a history of chronic hypertension for which she is on Labetalol. She was started on a 24 hour urine collection given that she was janae and feeling well. She was then sent to Labor and Delivery for further monitoring. Upon evaluation in Labor and Delivery, she was found to have continued elevated blood pressure with a total protein of 429. At this point, a decision was made to keep the patient for further observation and monitor and rule out preeclampsia. She denies any headache. No blurred vision. On admission, no upper quadrant pain. No significant lower extremity edema. Her record is reviewed. lab blood type is 0 positive, rubella immune, hepatitis negative, HIV negative, GC/chlamydia negative. One hour sugar testing was within normal limits. GBS is unknown for this . PAST MEDICAL HISTORY: Significant for pseudotumor cerebri, elevated blood pressure, obesity. PAST SURGICAL HISTORY: Nerve decompression on the back of her head in 2008, left hand surgery. SOCIAL HISTORY: She is a chronic smoker. She smoked approximately a pack of cigarettes a day. Denies any alcohol, drugs or cigarette smoking. REVIEW OF SYSTEMS: Unremarkable. This was through IVF. MEDICATIONS: 1. vitamin. 2. Labetalol. ALLERGIES: Diamox, lactose intolerance. PHYSICAL EXAMINATION: GENERAL: Obese female in no acute distress. ABDOMEN: Soft, nontender and nondistended. EXTREMITIES: No clubbing, cyanosis or edema. GENITALIA: Vaginal exam done in the office: Fingertip 60%, fetus -3 station and in a vertex position. Tracing reviewed, Category 1 with decreased variability and occasional uterine irritability. No evidence of any real contractions. LABORATORY DATA: Labs during the early phase of her admission; her fibronectin was negative. COVID testing negative. Influenza negative. Her 24 hour urine collection shows a total protein of 429, platelet count of 399,000. AST and ALT within normal limits. Her uric acid was 4.5. ASSESSMENT: 1. Intrauterine at 32 and 5/7th weeks gestation with elevated blood pressure, cannot rule out superimposed preeclampsia. 2. Uterine irritability, rule out labor although fibronectin is negative. PLAN: Admit patient to Labor and Delivery, will initiate steroids for lung maturity in case she has to be induced. She is being monitored with serial labs for preeclampsia, Labetalol 200 mg was increased to 300 mg b.i.d. The patient will be monitored. Both her and her partner are counseled extensively. It is our goal if we are able to keep her stable to push this deliver to 35-36 weeks if possible. However, if her signs and symptoms of preeclampsia worsen she might need delivery immediately. She is aware that if she delivers at this point her baby will be considered premature and may need several days or weeks in the Intensive Care Unit. The patient fully understands the risks and will be admitted to the hospital for further monitoring. Repeat ultrasound will be done and will continue to monitor. cc: [facility]
[2020-08-15] VITALS (79 sets, daily range): BP systolic 119–183; BP diastolic 57–111
[2020-08-15] MEDS: NIFEdipine 10 MG CAP PO SCH ×3 (07:44→22:00)
[2020-08-15 08:01] LABS: HEMATOCRIT 31.7 % (36.0-47.0); HEMOGLOBIN 9.9 g/dl (12.0-15.5); MEAN CORPUSCULAR HEMOGLOBIN 28.9 pg (27.0-33.0); MEAN CORPUSCULAR HGB CONC 31.2 g/dl (32.0-36.5); MEAN CORPUSCULAR VOLUME 92.4 fl (80.0-96.0); PLATELET COUNT, AUTOMATED 447 10^3/uL (150-450); RED BLOOD COUNT 3.43 10^6/uL (4.00-5.40); WHITE BLOOD COUNT 11.3 10^3/uL (4.0-10.0)
[2020-08-15 08:37] LABS: ALT/SGPT 9 U/L (12-78); BILIRUBIN,TOTAL 0.2 MG/DL (0.2-1.0); CREATININE FOR GFR 0.54 MG/DL (0.55-1.30); GLOMERULAR FILTRATION RATE > 60.0 (>60); LDH LACTATE DEHYDROGENASE 189 U/L (84-246); URIC ACID 4.8 MG/DL (2.6-6.0)
[2020-08-15] MEDS ORDERED: FAMOTIDINE 20 MG TAB PO SCH (09:00)
[2020-08-15] MEDS: LABETALOL 100 MG TAB PO SCH ×2 (09:04→21:00)
[2020-08-15] MEDS ORDERED: PENICILLIN G POTASSIUM IV 5 MU in D5W MINI-BAG PLUS 100 ML IV STA (10:44)
[2020-08-15] MEDS ORDERED: miSOPROStol 50 MCG 1/2 TAB (S0191) PO ONE (10:45)
--- NOTE | 2020-08-15 11:14 | IPNPDOC ---
Obstetrical Progress Note Date of Service Aug 15, 2020 Arielle Meyers reports feeling overall unwell. She states "my head hurts, my belly hurts, just don't feel good." Reports headache, and transient blurred vision when blood pressures are high, and epigastric pain per patient. Denies nausea/vomiting, chest pain, SOB. She states good movement. Denies LOF, vaginal bleedng, or regular contractions. Reviewed with patient her NITA of 09/26/20 puts her at 34.0weeks today. This NITA was from a first trimester ultrasound on 02/01/20 at [id number], and is consistent with her LMP on 12/23/19 and IUI date of 01/03/20. She is betamethasone complete. Reviewed the chart and patient's current status with Dr. Espinal and plan was made to start IOL today for chronic hypertension with sever superimposed preeclampsia. Objective Vital Signs Date Time Temp Pulse Resp B/P (MAP) Pulse Ox O2 Delivery O2 Flow Rate FiO2 08/15/20 08:43 113 18 159/88 (111) 08/15/20 07:47 98.6 08/14/20 23:12 Room Air General: Alert and oriented x3. Neurological: Reports headache, no visual changes. Respiratory: Regular rate, no accessory muscle use. Lungs CTA. Abdomen: Soft, non-tender. Uterus palpates soft, no contractions palpated. Fetus: Vertex by Dino and RANJIT, ultrasound from 08/13/20 shows vertex presentation, [id number] (51%), normal amniotic fluid, no evidence of placenta abruption or previa, umbilical artery SD ratio 2.69 Extremities: DTRs +2 in left leg and +4 in right leg, negative clonus, +2 bilateral pitting edema to knees, negative calf tenderness. Assessment Heart Rate (FHR): 145 Variability: Moderate Accelerations: Positive Decelerations: None Heart Rate Tracing: Category I Tocometer Contractions: No Sterile Vaginal Examination Dilation: Fingertip (external os 1cm, internal FT) Effacement (%): 60% Station: -3 Cervical Consistency: Soft Cervical Position: Anterior Postion/Presentation: Cephalic presentation Assessment and Plan Age: 39 : 4 Term: 2 Pre-term: 1 Abortions: 0 Livin EGA at Admission: 34.0 Weeks & Days 34.0 Status: Reassuring Group B Streptococcus: Unknown (Will collect today, plan to treat.) Anticipate: Vaginal Delivery Additional Comments Plan as per consult with Dr. Espinal: Admit to Labor and Delivery as Inpatient. Activity as tolerated. Diet: Regular with cytotec, then clear liquids with Pitocin. Discussed Cytotec, Cervical Balloon, Pitocin, and IOL. GBS Unknown, plan to treat with Penicillin. Collect GBS swab today. Consult Anesthesia for Epidural placement. Labs and IV placement as per policy. LR 300mL bolus prior to epidural placement, then as per policy. Continue with Labetalol and Nifedipine. If having difficulty managing BP we will start Magnesium. Anticipate . as appropriate. ARCHANA COPELAND CNM Aug 15, 2020 11:14
[2020-08-15] MEDS: LR 1,000 ML IV SCH (15:16)
[2020-08-15] MEDS: PENICILLIN G POTASSIUM IV 2.5 MU in IV 1 EA IV SCH ×3 (15:16→23:13)
--- NOTE | 2020-08-15 15:51 | IPNPDOC ---
Obstetrical Progress Note Date of Service Aug 15, 2020 Subjective Reports some mild cramping and active movement. Denies LOF and vaginal bleeding. Objective Vital Signs Date Time Temp Pulse Resp B/P (MAP) Pulse Ox O2 Delivery O2 Flow Rate FiO2 08/15/20 15:13 107 18 183/91 (121) 08/15/20 07:47 98.6 08/14/20 23:12 Room Air Assessment Heart Rate (FHR): 145 Variability: Moderate Accelerations: Positive Decelerations: Variable Heart Rate Tracing: Category II Tocometer Contractions: No Strength: patient denies CTX's Sterile Vaginal Examination Dilation: 1cm Effacement (%): 60% Station: -3 Cervical Consistency: Soft Cervical Position: Middle Postion/Presentation: Cephalic presentation Assessment and Plan Age: 39 : 4 Term: 2 Pre-term: 1 Abortions: 0 Livin EGA at Admission: 34.0 Status: Reassuring Group B Streptococcus: Unknown Anticipate: Vaginal Delivery Additional Comments Cook's catheter placed by ALAN Avila with speculum. 60mL of NS in uterine balloon and 40mL of NS in vaginal balloon, secured to leg for traction. Plan to start pitocin. Consulted with Dr. Espinal and if we have to rupal her blood pressures then we will start Magnesium. She is due for her Nifedipine at this time. Will continue to monitor and consult for continued severe range BP. ARCHANA COPELAND CNM Aug 15, 2020 15:51
[2020-08-15] MEDS ORDERED: OXYTOCIN DRIP 30 UNITS in IV 1 EA IV SCH (16:30)
[2020-08-15] MEDS ORDERED: FENTANYL 2MCG/ML ROPIVACAINE 0.2% IN 0.9% NACL 100ML IVBAG As Ordered ONE (20:03)
--- NOTE | 2020-08-15 20:39 | IPNPDOC ---
Obstetrical Progress Note Date of Service Aug 15, 2020 Subjective Patient reports she is feeling her contractions and getting uncomfortable. Objective Vital Signs Date Time Temp Pulse Resp B/P (MAP) Pulse Ox O2 Delivery O2 Flow Rate FiO2 08/15/20 15:13 107 18 183/91 (121) 08/15/20 07:47 98.6 08/14/20 23:12 Room Air Vital Signs Label Value Date Time Pulse 104 08/15/201927 Blood Pressure Assessment 160/95 (116) 08/15/201927 Source Automatic Cuff (NIBP) Pulse 106 08/15/201942 Blood Pressure Assessment 138/75 (96) 08/15/201942 Source Automatic Cuff (NIBP) Pulse 105 08/15/201957 Blood Pressure Assessment 126/69 (88) 08/15/201957 Source Automatic Cuff (NIBP) Assessment Heart Rate (FHR): 135 Variability: Minimal to moderate Accelerations: Positive Decelerations: None Tocometer Contractions: Yes Frequency: irregular Sterile Vaginal Examination Dilation: 5 cm Effacement (%): 80% Station: -1 Cervical Consistency: Soft Cervical Position: Anterior Postion/Presentation: Cephalic presentation Assessment and Plan Age: 39 EGA at Admission: 34 Status: Reassuring Group B Streptococcus: Unknown Anticipate: Vaginal Delivery Additional Comments Patient is difficult to trace due to maternal habitus and she only likes to be in certain positions. She has only received 2 cc of Pitocin but was turned off as her IV infiltrated. Her schulte bulb fell out spontaneously. IV to be restarted. Patient to get epidural per request. Will put internal monitors in once she is comfortable with an epidural. Neonatology to be updated on status of patient. Dr. Espinal updated on patients status and agrees with plan of care. ARCHANA COPELAND CNM Aug 15, 2020 20:39
[2020-08-15] MEDS ORDERED: REFRIGERATOR IV KEYS XX PRN (22:15)
[2020-08-15] MEDS ORDERED: ONDANSETRON 4MG/2ML VIAL IV PRN (22:15)
[2020-08-15] MEDS ORDERED: diphenhydrAMINE 50MG/ML VIAL (J1200) IV PRN (22:15)
[2020-08-15] MEDS ORDERED: FENTANYL/ROPIVACAINE/NACL BAG 100 ML EPIDURAL SCH (22:15)
[2020-08-15] MEDS ORDERED: EPIDURAL COMMENT XX SCH (22:15)
[2020-08-15] MEDS ORDERED: LACTATED RINGER'S 1000 ML IV PRN (22:15)
[2020-08-15] MEDS ORDERED: ePHEDrine SULFATE 25 MG/5 ML(5MG/ML) SYRINGE IV PRN (22:15)
[2020-08-15] MEDS ORDERED: NALOXONE INJ 0.4MG/1ML VIAL (J2310 PER 1MG) IV PRN (22:15)
[2020-08-15] MEDS ORDERED: EPIDURAL/PCA KEYS XX PRN (22:15)
--- NOTE | 2020-08-15 23:24 | IPNPDOC ---
Obstetrical Progress Note Date of Service Aug 15, 2020 Arielle Meyers is very comfortable with epidural. Due to difficulties with tracing FHR and contractions throughout the day, risks, benefits, and alternative to internal monitoring were discussed with patient and consent obtained for placement of IUPC and FSE placement. Small amount of bloody show on SVE. Objective Vital Signs Date Time Temp Pulse Resp B/P (MAP) Pulse Ox O2 Delivery O2 Flow Rate FiO2 08/15/20 22:09 97.5 102 158/97 (117) 08/15/20 15:13 18 08/14/20 23:12 Room Air Assessment Heart Rate (FHR): 140 Variability: Moderate Accelerations: Positive Decelerations: None Heart Rate Tracing: Category I Tocometer Contractions: Yes Frequency: irregular Duration: less than 60 seconds Strength: palpated as mild, resting tone palp/soft Sterile Vaginal Examination Dilation: 5 cm Effacement (%): 80% Station: -1 Cervical Consistency: Soft Cervical Position: Middle Postion/Presentation: Cephalic presentation Assessment and Plan Age: 39 : 4 Term: 2 Pre-term: 1 Abortions: 0 Livin Status: Reassuring Group B Streptococcus: Unknown Anticipate: Vaginal Delivery Additional Comments FSE placed, then IUPC placed to 40cm esme. IUPC and FSE placed due to extreme difficulty tracing throughout the day due to maternal habitus. Patient tolerated procedure well. Plan to continue to hold Procardia and Labetalol unless severe range blood pressures continue, due to epidural and minimal FHR variability with normotensive blood pressures. Pitocin restarted at 2mu/min. ARCHANA COPELAND CNM Aug 15, 2020 23:24
[2020-08-16] VITALS (28 sets, daily range): BP systolic 127–173; BP diastolic 74–104
[2020-08-16] MEDS: PENICILLIN G POTASSIUM IV 2.5 MU in IV 1 EA IV SCH ×2 (03:03→07:11)
[2020-08-16] MEDS: NIFEdipine 10 MG CAP PO SCH (05:17)
--- NOTE | 2020-08-16 08:39 | IPNPDOC ---
Obstetrical Progress Note Date of Service Aug 16, 2020 Subjective Reports feeling more pressure and active movement. She is comfortable with her epidural. Objective Small amount of bloody show with SVE. Amniotic fluid remans clear, no odor. Afebrile. Vital Signs Date Time Temp Pulse Resp B/P (MAP) Pulse Ox O2 Delivery O2 Flow Rate FiO2 08/16/20 06:28 104 144/82 (102) 08/16/20 05:35 97.7 08/15/20 15:13 18 08/14/20 23:12 Room Air Assessment Heart Rate (FHR): 140 Variability: Moderate Accelerations: Positive Decelerations: Early, Variable Heart Rate Tracing: Category II Tocometer Contractions: Yes Frequency: regular, every 2-2 min. Duration: greater than 60 seconds Strength: palpated as moderate, resting tone palp/soft, other (MVUs >200, resting tone 15mmHg) Sterile Vaginal Examination Dilation: 6 cm Effacement (%): 80% Station: 0 Cervical Consistency: Soft Cervical Position: Anterior Postion/Presentation: Cephalic presentation Assessment and Plan Age: 39 : 4 Term: 2 Pre-term: 1 Abortions: 0 Livin Status: Reassuring Group B Streptococcus: Unknown Anticipate: Vaginal Delivery Additional Comments Continue with Pitocin, currently at 18mu/min Peanut ball and reposition hourly. Labetalol and Procardia for severe range blood pressures ARCHANA COPELAND CNM Aug 16, 2020 08:39
[2020-08-16] MEDS ORDERED: AZITHROMYCIN INJ 500 MG, VIAL MATE ADAPTER 1 EACH in D5W 250 ML IV ONE (10:30)
[2020-08-16] MEDS ORDERED: BICITRA 30ML SOLN UDC PO ONE (10:30)
[2020-08-16] MEDS ORDERED: ceFAZolin 2 GM/D5W 50 ML IV BAG (J0690 PER 500MG) As Ordered ONE (10:35)
[2020-08-16] MEDS ORDERED: ceFAZolin 1GM VIAL (J0690 PER 500MG) As Ordered ONE (10:35)
[2020-08-16] MEDS ORDERED: OXYTOCIN INJ 10 UNITS/ML VIAL (J2590) As Ordered ONE ×2 (10:58→12:27)
[2020-08-16] MEDS ORDERED: hydrALAZINE 20MG/ML 1ML VIAL (J0360 PER 20MG) As Ordered ONE (10:58)
[2020-08-16] MEDS ORDERED: ONDANSETRON 4MG/2ML VIAL As Ordered ONE (10:58)
[2020-08-16] MEDS ORDERED: LIDOCAINE PRES-FREE 2% 10ML AMP As Ordered ONE ×2 (10:58→11:51)
[2020-08-16] MEDS ORDERED: MORPHINE PRES-FREE INJ 10 MG/10 ML VIAL (J2274) As Ordered ONE (10:59)
[2020-08-16] MEDS ORDERED: ceFAZolin SOD 1 GM in D5W MINI-BAG PLUS 50 ML IV ONE (11:00)
[2020-08-16] MEDS ORDERED: ceFAZolin SOD 2 GM in IV 1 EA IV ONE (11:00)
[2020-08-16] MEDS ORDERED: NALOXONE INJ 0.4MG/1ML VIAL (J2310 PER 1MG) IV PRN ×2 (11:11)
[2020-08-16] MEDS ORDERED: diphenhydrAMINE 50MG/ML VIAL (J1200) IV PRN (11:11)
[2020-08-16] MEDS ORDERED: METOCLOPRAMIDE INJ 10MG/2ML VIAL (J2765 PER 1) IV PRN ×2 (11:11→13:15)
[2020-08-16] MEDS ORDERED: ONDANSETRON 4MG/2ML VIAL IV PRN ×2 (11:11→13:15)
[2020-08-16 11:23] LABS: CORD GAS ABE A 0.1; CORD GAS HCO3 A 26.5 MEQ/L; CORD GAS HCO3 V 22.2 MEQ/L; CORD GAS O2 SAT A 76.9 %; CORD GAS PCO2 A 49.3 mmHg; CORD GAS PCO2 V 35.6 mmHg; CORD GAS PH A 7.348 UNITS; CORD GAS PH V 7.413 UNITS; CORD GAS PO2 A 31.5 mmHg; CORD GAS PO2 V 50.4 mmHg; CORD GAS SBC A 24.1 MEQ/L; CORD GAS TCO2 V 23.3 MEQ/L
[2020-08-16 11:24] LABS: CORD GAS ABE V -1.7; CORD GAS O2 SAT V 93.6 %; CORD GAS SBC V 22.9 MEQ/L
[2020-08-16] MEDS ORDERED: ACETAMINOPHEN 1000MG 100ML IV BTL (OFIRMEV) (J0131 PER 10MG) As Ordered ONE (11:28)
[2020-08-16] MEDS ORDERED: fentaNYL 100 MCG/2 ML INJECTION (J3010) As Ordered ONE ×2 (11:28→13:13)
[2020-08-16] MEDS ORDERED: MIDAZOLAM INJ 2MG/2ML VIAL (J2250 PER 1MG) As Ordered ONE (11:35)
[2020-08-16] MEDS ORDERED: propofoL 200 MG/20 ML VIAL As Ordered ONE (11:49)
[2020-08-16] MEDS ORDERED: OXYTOCIN DRIP 30 UNITS in IV 1 EA IV SCH (12:42)
[2020-08-16] MEDS: LR 1,000 ML IV SCH ×2 (12:42→21:01)
[2020-08-16] MEDS ORDERED: ACETAMINOPHEN 500 MG TAB PO PRN (12:45)
[2020-08-16] MEDS ORDERED: MEASLES,MUMPS,RUBELLA VACCINE INJ (MMR-II) (90707) SC SCH (12:45)
[2020-08-16] MEDS ORDERED: RHOGAM 300 MCG (1500 IU) INJ (J2790) IM SCH (12:45)
[2020-08-16] MEDS ORDERED: PERCOCET 5MG/325MG TAB PO PRN ×2 (12:45→13:15)
[2020-08-16] MEDS ORDERED: LR 1,000 ML IV SCH (13:15)
--- NOTE | 2020-08-16 13:15 | ROOPDOC ---
[facility] Report Of Operation Report of Operation DATE OF PROCEDURE: 08/16/2020 PREPROCEDURE DIAGNOSES:. 34+1 weeks gestation, with severe hypertension/features, arrest of dilation/failed induction of labor POSTPROCEDURE DIAGNOSES:. Same PROCEDURE: Primary low transverse section SURGEON: Jer Espinal DO FACOG SUPPLIES PACKER: Almita (Essential role in retraction, extraction, and closure of all tissue layers) ANESTHESIA: Epidural w/ Duramorph ESTIMATED BLOOD LOSS: 1000 mL. IV FLUIDS: 2700 mL LR URINE OUTPUT: 400 mL BLOOD PRODUCT REPLACEMENT: 2 units prbc's. COMPLICATIONS: None. PREOPERATIVE ANTIBIOTICS: Ancef 3g IV x 1, Azithromycin 500mg IV COMPLICATIONS: none DATA: Apgars 9 and 9. Birthweight 1710 g, 3 lbs 12 oz. SPECIMENS: placenta PRIMARY INDICATION FOR : Arrest of dilation/failed induction (pre- eclampsia w/ severe features) INTRAOPERATIVE FINDINGS: fragile/weak tissue, prone to tearing/bleeding DESCRIPTION OF PROCEDURE: The patient was counseled on the risks, benefits, indications and alternatives of the procedure. Informed consent was obtained. She was taken to the operating room with IV running and placed on the operating table in the dorsal supine position with a leftward tilt. Regional anesthesia/epidural was bolused and found to be adequate. Sequential compression devices were placed on the lower extremities. A Randle catheter was placed under sterile conditions. A Traxi retractor was placed for abdominal fat retraction. She was prepared and draped in normal sterile fashion. A time out was performed per protocol. Epidural anesthesia was again found to be adequate. A Pfannenstiel skin incision was made with the 10 blade. The 10 blade was used to dissect down to the level of the rectus sheath fascia. The rectus sheath pressure was incised midline and this was extended bilaterally with Yap scissors , and manual stretch. The rectus muscle bellies were dissected off the rectus sheath fascia superiorly and inferiorly using both sharp and blunt dissection. The midline was identified. The peritoneum was identified and entered digitally. The peritoneal opening was extended with manual stretch. The Mobius retractor was placed. The vesicouterine peritoneum was dissected with Metzenbaum scissors to create the bladder flap. A low transverse uterine incision was made with the 10 blade. This was extended with manual stretch. The amniotic sac was punctured, and clear fluid was noted. The head delivered through the hysterotomy without difficulty. The remainder of the body delivered with ease. The cord was doubly clamped and cut, and the baby was handed off to awaiting care. data shown above. The placenta was removed manually. The intrauterine cavity was cleared of all clot and debris. 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 These were clamped successfully. The hysterotomy was closed with 0 Vicryl in running locked fashion. This was reinforced with a second imbricating layer using 0 Vicryl in running fashion. Reinforcing figure of eight stitches were placed over the hysterotomy. Excellent hemostasis of the hysterotomy was noted. The pelvis was irrigated and the fluid suctioned. The Mobius retractor was removed. The peritoneum was closed with 3-0 Vicryl running fashion. The rectus muscle bellies were reapproximated with interrupted stitches using 3-0 Vicryl. The rectus muscles bellies were hemostatic. The rectus sheath fascia was closed with 0 Vicryl running fashion. The subcutaneous layer was irrigated and the fluid suctioned. Small bleeding vessels were cauterized with Bovie. Excellent hemostasis was noted. The subcutaneous layer was reapproximated with 3-0 Vicryl running fashion. Skin was closed with 3-0 Monocryl in subcuticular fashion. An Optifoam bandage was placed over the closed incision. Sponge, needle and instrument counts were correct per protocol throughout the procedure. The patient tolerated the entire procedure very well. She was transferred to the PACU in stable condition. DO GARY Combs JONATHAN R. DO Aug 16, 2020 13:15
[2020-08-16] MEDS: fentaNYL 100 MCG/2 ML INJECTION (J3010) IV PRN ×2 (13:16→14:13)
[2020-08-16] MEDS ORDERED: KETOROLAC 30 MG/ML 1ML VIAL As Ordered ONE (13:34)
[2020-08-16] MEDS: KETOROLAC 30 MG/ML 1ML VIAL IV SCH ×2 (13:35→18:32)
[2020-08-16] MEDS: PERCOCET 5MG/325MG TAB PO PRN ×2 (15:58→22:03)
[2020-08-16] MEDS ORDERED: OXYTOCIN DRIP 30 UNITS in IV 1 EA IV PRN (16:00)
[2020-08-16] MEDS: DOCUSATE SODIUM 100MG CAPSULE PO SCH (21:04)
[2020-08-16] MEDS ORDERED: LABETALOL 100MG/20ML VIAL IV STA (22:47)
[2020-08-16] MEDS ORDERED: LABETALOL 100 MG TAB PO ONE (23:30)
[2020-08-17] VITALS (21 sets, daily range): BP systolic 135–191; BP diastolic 70–102
[2020-08-17] MEDS: KETOROLAC 30 MG/ML 1ML VIAL IV SCH (00:50)
[2020-08-17] MEDS: PERCOCET 5MG/325MG TAB PO PRN ×3 (06:25→21:21)
[2020-08-17] MEDS ORDERED: NIFEdipine 10 MG CAP PO ONE (07:00)
[2020-08-17 08:20] LABS: HEMATOCRIT 30.8 % (36.0-47.0); HEMOGLOBIN 10.2 g/dl (12.0-15.5); MEAN CORPUSCULAR HEMOGLOBIN 30.1 pg (27.0-33.0); MEAN CORPUSCULAR HGB CONC 33.1 g/dl (32.0-36.5); MEAN CORPUSCULAR VOLUME 90.9 fl (80.0-96.0); PLATELET COUNT, AUTOMATED 359 10^3/uL (150-450); RED BLOOD COUNT 3.39 10^6/uL (4.00-5.40); WHITE BLOOD COUNT 15.1 10^3/uL (4.0-10.0)
[2020-08-17] MEDS: PRENATAL VITAMINS CHEWABLE TABLET PO SCH (08:59)
[2020-08-17] MEDS: DOCUSATE SODIUM 100MG CAPSULE PO SCH ×2 (08:59→21:20)
[2020-08-17] MEDS: IBUPROFEN 800 MG TAB PO SCH ×2 (08:59→16:52)
[2020-08-17] MEDS ORDERED: NIFEdipine 30 MG XL TAB PO SCH (09:00)
[2020-08-17] MEDS ORDERED: LABETALOL 100 MG TAB PO SCH (09:00)
--- NOTE | 2020-08-17 09:34 | IPNPDOC ---
Progress Note Date of Service: Aug 17, 2020 Day#: 1 Progress Note SUBJECT: Status post PLTCS She has been ambulating, voiding spontaneously without issue and tolerating regular diet. Lochia decreasing/minimal. Patient is ambulating well. Pain is adequately controlled. Prevena wound vac is clean/unsaturated and hasn't alarmed. She is not complaining of REILLY, visual changes, RUQ pain, sob, cp. Blood pressures have been intermittently severe range. She has received Labetalol 40mg IV x 1, and Nifedipine 10mg PO x 1 for acute control. She is also on Nifedipine XL 30mg qam, and Labetalol 300mg BID. OBJECTIVE: VITAL SIGNS: Within normal limits, afebrile. Alert and oriented times three. Abdomen: Fundus firm at U-2. Soft, NTTP. Incision bandage not soaked through ASSESSMENT: Status post PLTCS (s/p 2u prbc for EBL 1000mL). Hypertensive (chronic HTN w/ superimposed pre-e), asymptomatic for pre-e, afebrile, hemodynamically stable with no evidence of infection. PLAN: Continue to monitor / treat BP as indicated. Consider Mag Sulfate if clinical condition worsens. Routine /postoperative advancement Postoperative instructions/precautions reviewed. Increase regimen to Labetalol 400mg TID, Nifedipine XL 30mg BID. Renata Espinal DO VS, I&O, 24H, Karla Vital Signs/I&O Vital Signs Date Time Temp Pulse Resp B/P (MAP) Pulse Ox O2 Delivery O2 Flow Rate FiO2 08/17/20 09:00 106 156/85 08/17/20 06:59 19 08/17/20 06:39 99.0 98 Room Air I&O- Last 24 Hours up to 6 AM 08/17/20 06:00 Intake Total 6958 ml Output Total 3610 ml Balance 3348 ml Laboratory Data 24H LABS Laboratory Tests 2 08/16/20 11:18: Cord Arterial Blood pH 7.348, Cord Arterial Blood PCO2 49.3, Cord Arterial Blood PO2 31.5, Cord Arterial Blood HCO3 26.5, Cord Arterial Blood Total CO2 28.0, Cord Arterial Blood Base Excess 0.1, Cord Arterial Base Excess (Standard 24.1, Cord Arterial Bld Oxygen Saturation 76.9, Cord Venous Blood pH 7.413, Cord Venous Blood PCO2 35.6, Cord Venous Blood PO2 50.4, Cord Venous Blood HCO3 22.2, Cord Venous Blood Total CO2 23.3, Cord Venous Base Excess (Actual) -1.7, Cord Venous Base Excess (Standard) 22.9, Cord Venous Blood Oxygen Saturation 93.6 08/17/20 08:01: Nucleated Red Blood Cells % (auto) 0.0 CBC/BMP Laboratory Tests 08/17/20 08:01 Microbiology Microbiology 08/15/20 Group B Streptococcus Screen (NENITA) - Final, Complete GALO ESPINAL DO Aug 17, 2020 09:34
[2020-08-17] MEDS ORDERED: NIFEdipine 30 MG XL TAB PO ONE (11:00)
[2020-08-17] MEDS: LABETALOL 200 MG TAB PO SCH ×2 (16:04→21:22)
[2020-08-17] MEDS: NIFEdipine 30 MG XL TAB PO SCH (21:21)
[2020-08-18] VITALS (7 sets, daily range): BP systolic 128–154; BP diastolic 67–83
[2020-08-18] MEDS: IBUPROFEN 800 MG TAB PO SCH ×3 (01:50→17:11)
[2020-08-18] MEDS: PERCOCET 5MG/325MG TAB PO PRN ×2 (06:36→14:42)
[2020-08-18] MEDS: DOCUSATE SODIUM 100MG CAPSULE PO SCH ×2 (09:01→20:36)
[2020-08-18] MEDS: PRENATAL VITAMINS CHEWABLE TABLET PO SCH (09:01)
[2020-08-18] MEDS: LABETALOL 200 MG TAB PO SCH ×3 (09:02→20:37)
[2020-08-18] MEDS: NIFEdipine 30 MG XL TAB PO SCH ×2 (09:03→20:37)
[2020-08-19] MEDS: PERCOCET 5MG/325MG TAB PO PRN ×2 (00:18→07:15)
[2020-08-19] MEDS: IBUPROFEN 800 MG TAB PO SCH ×2 (00:18→09:10)
[2020-08-19 06:00] VITALS: BP 141/64
[2020-08-19] MEDS ORDERED: PERCOCET PO (09:06)
[2020-08-19] MEDS ORDERED: NIFE1TAB52 PO (09:06)
[2020-08-19] MEDS ORDERED: LABE20TAB PO (09:06)
[2020-08-19] MEDS: DOCUSATE SODIUM 100MG CAPSULE PO SCH (09:10)
[2020-08-19] MEDS: LABETALOL 200 MG TAB PO SCH (09:10)
[2020-08-19 09:11] VITALS: BP 141/64
[2020-08-19] MEDS: PRENATAL VITAMINS CHEWABLE TABLET PO SCH (09:11)
[2020-08-19] MEDS: NIFEdipine 30 MG XL TAB PO SCH (09:11)
--- NOTE | 2020-08-19 09:12 | OBDS ---
[facility] Obstetrical Discharge Sum. Obstetrical Discharge Summary [place] Inspector/Provider: Kris Claudio DO Date: Aug 19, 2020 : 4 Term: 2 Pre-term: 1 Abortions: 0 Livin VDRL: Non-Reactive Rubella: Immune Anesthesia: Regional Anesthesia A/P, Post Course List any complications Admission diagnosis: IUP at 34 weeks with severe pre-eclampsia and uncontrolled BP (2) Morbid obesity. Discharge diagnosis: Same Condition at Discharge: [stable] Discharge Instructions: [See form] Activity: [As tolerated] Diet: [regular] Medications: [See list] Follow-up: [1 week with PCP for BP control and 1 week at [facility] for incision check] Other: Kris Claudio DO Aug 19, 2020 09:12
== END 2020-08-19 09:40 | disposition home or self-care (01) | DRG 788 ==
LOC: M LDO 14:59 → M LDI 08-14 08:35 → M OBS 08-16 15:59
PROVIDERS: ADMIT Obstetrics & Gynecology; ATTEND Obstetrics & Gynecology
PROC: 3E033VJ Introduction of Other Hormone into Peripheral Vein, Percutaneous Approach (ICD-10-PCS; 2020-08-15)
PROC: 10D00Z1 Extraction of Products of Conception, Low, Open Approach (ICD-10-PCS; principal; 2020-08-16 11:16)
DX: O14.14 Severe pre-eclampsia complicating childbirth (principal); Z37.0 Single live birth; Z3A.34 34 weeks gestation of pregnancy; O09.523 Supervision of elderly multigravida, third trimester; F17.200 Nicotine dependence, unspecified, uncomplicated; O99.334 Smoking (tobacco) complicating childbirth; O62.0 Primary inadequate contractions; O61.0 Failed medical induction of labor; E66.01 Morbid (severe) obesity due to excess calories; O99.214 Obesity complicating childbirth

== ENCOUNTER → 2020-08-13 | Outpatient (REF) | payer MEDICARE, MEDICAID ==
[~2020-08-13] MED LIST changes: +CLAR10CA3 PO; +LABE20TAB PO; +NIFE1TAB52 PO; +PERCOCET PO; +VERAP80TA PO
[2020-08-13 16:43] LABS: CREATININE, URINE 82.1 MG/DL; URINE TOTAL PROTEIN 27.7 MG/DL (0-12)
[2020-08-13 17:49] LABS: CREATININE 24 HOUR, URINE 1272.5 MG/24HR (600-1800); TOTAL PROTEIN 24 HOUR URINE 429.3 MG/24HR (50-150)
== END ==
LOC: M LAB REF 15:24
PROVIDERS: ATTEND Obstetrics & Gynecology
DX: Z34.83 Encounter for supervision of other normal pregnancy, third trimester (principal); Z3A.00 Weeks of gestation of pregnancy not specified

== ENCOUNTER 2021-03-02 00:45 | Emergency (ER) | payer MEDICARE, MEDICAID ==
[~2021-03-02] VITALS: Ht 162.6 cm; Wt 103.7 kg
[~2021-03-02 00:45] MED LIST changes: +NIFE1TAB52 PO; +OMEP40CA4 PO; -OMEP40CA97 PO; +PERCOCET PO; +VERA80TA3 PO; -VERAP80TA PO
[2021-03-02 00:48] VITALS: BP 139/89
== END 2021-03-02 00:56 | disposition left against medical advice (07) ==
LOC: M ED 00:45
DX: Z53.21 Procedure and treatment not carried out due to patient leaving prior to being seen by health care provider (principal)

== ENCOUNTER 2021-03-06 22:26 | Emergency (ER) | payer MEDICARE, MEDICAID ==
[~2021-03-06] VITALS: Ht 162.6 cm; Wt 100.7 kg
[2021-03-06] MEDS ORDERED: CYCL-707 (22:41)
[2021-03-06] MEDS ORDERED: IBUP-1022 (22:41)
[2021-03-07 03:25] LABS: BASO # 0.1 10^3/uL (0.0-0.2); BASO % 0.5 % (0.0-1.0); EOS # 0.2 10^3/uL (0.0-0.5); EOS % 1.5 % (0.0-3.0); HEMATOCRIT 39.1 % (36.0-47.0); HEMOGLOBIN 13.1 g/dl (12.0-15.5); LYMPH # 3.3 10^3/uL (1.5-5.0); LYMPH % 30.3 % (24.0-44.0); MEAN CORPUSCULAR HEMOGLOBIN 28.1 pg (27.0-33.0); MEAN CORPUSCULAR HGB CONC 33.5 g/dl (32.0-36.5); MEAN CORPUSCULAR VOLUME 83.9 fl (80.0-96.0); MONO # 1.1 10^3/uL (0.0-0.8); MONO % 10.4 % (2.0-8.0); NEUTROPHILS # 6.2 10^3/uL (1.5-8.5); NEUTROPHILS % 56.9 % (36.0-66.0); PLATELET COUNT, AUTOMATED 405 10^3/uL (150-450); RED BLOOD COUNT 4.66 10^6/uL (4.00-5.40); WHITE BLOOD COUNT 10.8 10^3/uL (4.0-10.0)
[2021-03-07] MEDS ORDERED: MORPHINE 4 MG/ML 1ML VIAL/SYRINGE (J2270) IV ONE (03:40)
[2021-03-07] MEDS ORDERED: PERCOCET 5MG/325MG TAB PO ONE (03:40)
[2021-03-07 03:58] LABS: BLOOD UREA NITROGEN 14 MG/DL (7-18); CALCIUM LEVEL 8.7 MG/DL (8.5-10.1); CARBON DIOXIDE LEVEL 26 MEQ/L (21-32); CHLORIDE LEVEL 108 MEQ/L (98-107); CREATININE FOR GFR 1.27 MG/DL (0.55-1.30); GLOMERULAR FILTRATION RATE > 60.0 (>60); GLUCOSE, FASTING 100 MG/DL (70-100); SODIUM LEVEL 142 MEQ/L (136-145)
--- NOTE | 2021-03-07 04:03 | REPVR ---
PROCEDURE INFORMATION: Exam: MR Lumbar Spine Without Contrast Exam date and time: 03/07/2021 2:38 AM Age: 40 years old Clinical indication: Low back pain; Patient HX: Lbp, lt foot numbness; Additional info: Back pain R/O cauda equina TECHNIQUE: Imaging protocol: Multiplanar magnetic resonance images of the lumbar spine without intravenous contrast. COMPARISON: 1. US OBS FOLL UP OR REPEAT EACH GES 2020-08-13 16:26 2. US BPP W/O NON STRESS TEST 2020-07-12 01:21 FINDINGS: Limitations: Limited by patient's body habitus. Vertebrae: Normal spinal curvature, vertebral body heights, and alignment. No spinal fracture or acute subluxation. Spinal cord: Normal signal. No cord compression. L1-L2: No significant disc disease. No significant spinal canal stenosis. No neural foraminal stenosis. L2-L3: No significant disc disease. No significant spinal canal stenosis. No neural foraminal stenosis. L3-L4: No significant disc disease. No significant spinal canal stenosis. No neural foraminal stenosis. L4-L5: Mild disc desiccation without stenosis. Mild facet arthropathy. L5-S1: Minimal disc desiccation and disc bulging and facet arthropathy. No stenosis. Soft tissues: Unremarkable. IMPRESSION: No acute abnormality. Minimal spondylosis. Electronically signed by: Devendra Vela On 03/07/2021 04:03:02 AM
[2021-03-07 04:09] LABS: HCG, SERUM QUALITATIVE NEGATIVE (NEGATIVE)
[2021-03-07] MEDS ORDERED: MOBI4TAB PO (05:26)
[2021-03-07] MEDS ORDERED: PRED20TA PO (05:32)
[2021-03-07 05:52] VITALS: BP 132/84
== END 2021-03-07 05:56 | disposition home or self-care (01) ==
LOC: M ED 22:26
DX: M54.5 Low back pain (principal); R20.2 Paresthesia of skin; G93.2 Benign intracranial hypertension; J45.909 Unspecified asthma, uncomplicated; K59.00 Constipation, unspecified; Z88.8 Allergy status to other drugs, medicaments and biological substances; Z91.011 Allergy to milk products

== ENCOUNTER 2021-05-06 23:55 | Emergency (ER) | payer MEDICARE, MEDICAID ==
[~2021-05-06] VITALS: Ht 162.6 cm; Wt 104.2 kg
[~2021-05-06 23:55] MED LIST changes: +CYCL-707; +IBUP-1022; +MOBI4TAB PO; +PRED20TA PO
[2021-05-07] MEDS: ACETAMINOPHEN 500 MG TAB PO ONE (07:44)
[2021-05-07] MEDS: MORPHINE 4 MG/ML 1ML VIAL/SYRINGE (J2270) IV ONE (09:15)
[2021-05-07] MEDS: dexameTHASONE 20MG/5ML VIAL (J1100 PER 1MG) IV ONE (09:16)
[2021-05-07] MEDS: NS 1,000 ML IV ONE (09:16)
[2021-05-07] MEDS: diphenhydrAMINE 50MG/ML VIAL (J1200) IV STA (09:16)
[2021-05-07] MEDS: METOCLOPRAMIDE INJ 10MG/2ML VIAL (J2765 PER 1) IV ONE (09:16)
[2021-05-07 09:58] LABS: BASO % 0.4 % (0.0-1.0); EOS # 0.1 10^3/uL (0.0-0.5); EOS % 0.7 % (0.0-3.0); HEMOGLOBIN 12.1 g/dl (12.0-15.5); LYMPH # 3.4 10^3/uL (1.5-5.0); LYMPH % 31.9 % (24.0-44.0); MEAN CORPUSCULAR HEMOGLOBIN 29.7 pg (27.0-33.0); MEAN CORPUSCULAR HGB CONC 32.7 g/dl (32.0-36.5); MEAN CORPUSCULAR VOLUME 90.7 fl (80.0-96.0); MONO # 0.9 10^3/uL (0.0-0.8); MONO % 8.6 % (2.0-8.0); NEUTROPHILS # 6.2 10^3/uL (1.5-8.5); PLATELET COUNT, AUTOMATED 320 10^3/uL (150-450); RED BLOOD COUNT 4.08 10^6/uL (4.00-5.40); WHITE BLOOD COUNT 10.6 10^3/uL (4.0-10.0)
[2021-05-07 10:24] LABS: BLOOD UREA NITROGEN 8 MG/DL (7-18); CALCIUM LEVEL 8.7 MG/DL (8.5-10.1); CARBON DIOXIDE LEVEL 24 MEQ/L (21-32); CHLORIDE LEVEL 109 MEQ/L (98-107); CREATININE FOR GFR 0.64 MG/DL (0.55-1.30); GLOMERULAR FILTRATION RATE > 60.0 (>60); GLUCOSE, FASTING 98 MG/DL (70-100); HCG, SERUM QUANTITATIVE < 1.0 MIU/ML; POTASSIUM SERUM 3.9 MEQ/L (3.5-5.1); SODIUM LEVEL 139 MEQ/L (136-145)
--- NOTE | 2021-05-07 10:50 | REP ---
INDICATION: REILLY, dizziness, pseudotumor cerebri. COMPARISON: Comparison head CT study May 13, 2018. TECHNIQUE: Helical scanning is acquired. 5 mm axial images were reformatted. Coronal MPR images were generated. FINDINGS: Bone window settings demonstrate an intact bony calvarium. There is no evidence of skull fracture or incidental bony calvarial lesion. The visualized paranasal sinuses appear clear. No intraorbital abnormality is seen. On soft tissue window setting images; the lateral, third, and fourth ventricles are normal in size and position. Fields-white differentiation pattern is normal above and below the tentorium. There are is no evidence of intracranial hemorrhage. No mass, edema, infarction, or midline shift is seen. No extra-axial fluid collection is appreciated. IMPRESSION: Negative noncontrast head CT. <Electronically signed by Bryson Abdul > 05/07/21 [id number]
[2021-05-07] MEDS: MECLIZINE 25 MG TABLET PO ONE (12:22)
[2021-05-07 12:36] VITALS: BP 158/90
[2021-05-07 14:50] LABS: ERYTHROCYTE SEDIMENTATION RATE 30 mm/hr (0-20)
== END 2021-05-07 12:50 | disposition home or self-care (01) ==
LOC: M ED 23:55
DX: G93.2 Benign intracranial hypertension (principal); I25.2 Old myocardial infarction; J45.909 Unspecified asthma, uncomplicated; F17.200 Nicotine dependence, unspecified, uncomplicated; Z86.69 Personal history of other diseases of the nervous system and sense organs; Z91.011 Allergy to milk products; Z88.8 Allergy status to other drugs, medicaments and biological substances
CPT/HCPCS: 36415; 70450; 80048; 84702; 85025; 85652; 96374; 96375; 99284; J1100; J1200; J2270; J2765

== ENCOUNTER 2021-05-12 13:45 | Emergency (ER) | payer MEDICARE, MEDICAID ==
[~2021-05-12] VITALS: Ht 162.6 cm; Wt 103.4 kg
[2021-05-12] MEDS ORDERED: ONDA4TAB6 PO (14:17)
[2021-05-12] MEDS ORDERED: ZOLP10TA2 PO (14:17)
[2021-05-12] MEDS ORDERED: OMEP-218 PO (14:17)
[2021-05-12 20:32] LABS: HEMATOCRIT 41.2 % (36.0-47.0); HEMOGLOBIN 13.7 g/dl (12.0-15.5); MEAN CORPUSCULAR HEMOGLOBIN 30.1 pg (27.0-33.0); MEAN CORPUSCULAR HGB CONC 33.3 g/dl (32.0-36.5); MEAN CORPUSCULAR VOLUME 90.5 fl (80.0-96.0); PLATELET COUNT, AUTOMATED 373 10^3/uL (150-450); RED BLOOD COUNT 4.55 10^6/uL (4.00-5.40); WHITE BLOOD COUNT 10.4 10^3/uL (4.0-10.0)
[2021-05-12 20:58] LABS: HCG, SERUM QUALITATIVE NEGATIVE (NEGATIVE)
[2021-05-12 21:03] LABS: ALBUMIN 3.3 GM/DL (3.2-5.2); ALT/SGPT 15 U/L (12-78); BILIRUBIN,DIRECT 0.1 MG/DL (0.0-0.2); BILIRUBIN,TOTAL 0.3 MG/DL (0.2-1.0); CK-MB VALUE MASS < 1.0 NG/ML (<3.6); CPK CREATINE PHOSPHOKINASE 61 U/L (26-192); LIPASE 80 U/L (73-393); MAGNESIUM LEVEL 1.8 MG/DL (1.8-2.4); MB/CK RELATIVE INDEX 1.64 (< OR =4); TOTAL PROTEIN 8.1 GM/DL (6.4-8.2); TROPONIN I < 0.02 NG/ML (< 0.10)
[2021-05-12 21:12] VITALS: BP 154/96
[2021-05-12 21:23] LABS: EOSINOPHILS 1 % (0-3); LYMPHOCYTES 50 % (16-44); MONOCYTES 6 % (0-5); NEUTROPHILS 43 % (28-66)
[2021-05-12 21:24] LABS: PLATELET ESTIMATE NORMAL (NORMAL)
[2021-05-12 21:25] LABS: STOMATOCYTES 2+
[2021-05-12 21:26] LABS: ANISOCYTOSIS 1+
--- NOTE | 2021-05-12 21:29 | REPVR ---
PROCEDURE INFORMATION: Exam: MR Head Without Contrast Exam date and time: 05/12/2021 8:52 PM Age: 40 years old Clinical indication: Dizziness; Additional info: Dizziness/hx pseudo cerebri/vertigo/gonzales TECHNIQUE: Imaging protocol: MR of the head without contrast. COMPARISON: CT Head without contrast 05/07/2021 10:29 AM FINDINGS: Brain: Few foci of T2 lengthening demonstrated in the subcortical white matter not likely clinically significant. Otherwise unremarkable. Cerebral ventricles: Normal. No ventriculomegaly. Bones/joints: Unremarkable. Paranasal sinuses: Normal as visualized. No acute sinusitis. Mastoid air cells: Normal as visualized. No mastoid effusion. Orbital cavity: Unremarkable. Soft tissues: Unremarkable. IMPRESSION: No acute findings. Electronically signed by: Stone Gunter On 05/12/2021 21:28:33 PM
[2021-05-12 22:22] LABS: BLOOD UREA NITROGEN 9 MG/DL (7-18); CALCIUM LEVEL 8.7 MG/DL (8.5-10.1); CARBON DIOXIDE LEVEL 29 MEQ/L (21-32); CHLORIDE LEVEL 103 MEQ/L (98-107); CREATININE FOR GFR 0.77 MG/DL (0.55-1.30); GLOMERULAR FILTRATION RATE > 60.0 (>60); GLUCOSE, FASTING 83 MG/DL (70-100); POTASSIUM SERUM 3.6 MEQ/L (3.5-5.1); SODIUM LEVEL 141 MEQ/L (136-145)
--- NOTE | 2021-05-14 07:37 | ECGEPIP ---
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
== END 2021-05-12 22:53 | disposition home or self-care (01) ==
LOC: M ED 13:45
DX: R42 Dizziness and giddiness (principal); J45.909 Unspecified asthma, uncomplicated; K21.9 Gastro-esophageal reflux disease without esophagitis; F17.200 Nicotine dependence, unspecified, uncomplicated; Z88.8 Allergy status to other drugs, medicaments and biological substances; Z91.011 Allergy to milk products

== ENCOUNTER → 2021-08-06 | Outpatient (CLI) | payer MEDICARE, MEDICAID ==
[~2021-08-06] MED LIST changes: +OMEP-173 PO; -OMEP-221 PO; +OMEP40CA5 PO; +ONDA4TAB6 PO; +ZOLP10TA2 PO
== END ==
LOC: M PLAIMG 15:15
PROVIDERS: ATTEND Orthopaedic Surgery
DX: M71.551 Other bursitis, not elsewhere classified, right hip (principal); M54.2 Cervicalgia; M25.551 Pain in right hip

== ENCOUNTER 2022-01-22 20:34 | Emergency (ER) | payer MEDICARE, MEDICAID ==
[~2022-01-22] VITALS: Ht 162.6 cm; Wt 104.5 kg
[~2022-01-22 20:34] MED LIST changes: -ACET1TAB16 PO; +ACET300T48 PO; +EXCETAB32 PO; -EXCETAB33 PO; +TRAM100T14 PO; -TRAM100T18 PO
[2022-01-23] MEDS ORDERED: KETOROLAC TROMETHAMINE 10 MG TAB PO ONE (00:45)
[2022-01-23] MEDS ORDERED: IBUP-1022 PO (01:37)
[2022-01-23 01:42] VITALS: BP 123/65
== END 2022-01-23 01:44 | disposition home or self-care (01) ==
LOC: M ED 20:34
DX: M25.551 Pain in right hip (principal); M25.531 Pain in right wrist; Z91.011 Allergy to milk products; Z79.899 Other long term (current) drug therapy

== ENCOUNTER 2022-08-19 12:20 | Emergency (ER) | payer MEDICAID, MEDICARE ==
[~2022-08-19] VITALS: Ht 162.6 cm; Wt 119.0 kg
[2022-08-19] MEDS ORDERED: hydrOXYzine 50 MG TAB PO ONE (14:40)
[2022-08-19 15:10] LABS: HEMOGLOBIN 12.6 g/dl (12.0-15.5); MEAN CORPUSCULAR HEMOGLOBIN 29.1 pg (27.0-33.0); MEAN CORPUSCULAR HGB CONC 32.3 g/dl (32.0-36.5); MEAN CORPUSCULAR VOLUME 90.1 fl (80.0-96.0); PLATELET COUNT, AUTOMATED 411 10^3/uL (150-450); RED BLOOD COUNT 4.33 10^6/uL (4.00-5.40)
[2022-08-19 15:33] LABS: ALKALINE PHOSPHATASE 113 U/L (46-116); ALT/SGPT < 9 U/L (7.0-40); AST/SGOT 15 U/L (<34); BILIRUBIN,TOTAL 0.2 MG/DL (0.3-1.2); BLOOD UREA NITROGEN 7 MG/DL (9-23); CALCIUM LEVEL 8.6 MG/DL (8.5-10.1); CARBON DIOXIDE LEVEL 26 MMOL/L (20-31); CHLORIDE LEVEL 105 MMOL/L (98-107); CK-MB VALUE MASS < 1.0 NG/ML (<3.6); CPK CREATINE PHOSPHOKINASE 94 U/L (34-145); GLOMERULAR FILTRATION RATE > 60.0 (>60); GLUCOSE, FASTING 111 MG/DL (60-100); MB/CK RELATIVE INDEX 1.06 (< OR =4); POTASSIUM SERUM 3.6 MMOL/L (3.5-5.1); SODIUM LEVEL 138 MMOL/L (136-145); TOTAL PROTEIN 7.2 G/DL (5.7-8.2)
[2022-08-19 15:52] LABS: ATYPICAL LYMPH 2 % (0-5); EOSINOPHILS 4 % (0-3); LYMPHOCYTES 50 % (16-44); MONOCYTES 4 % (0-5); NEUTROPHILS 40 % (28-66)
[2022-08-19 15:53] LABS: PLATELET ESTIMATE INCREASED (NORMAL)
[2022-08-19] MEDS ORDERED: HYDR-3363 PO (16:24)
[2022-08-19 16:57] VITALS: BP 164/98
== END 2022-08-19 16:47 | disposition home or self-care (01) ==
LOC: M ED 14:34
DX: F41.1 Generalized anxiety disorder (principal); T14.8XXA Other injury of unspecified body region, initial encounter; Y04.8XXA Assault by other bodily force, initial encounter; I10 Essential (primary) hypertension; Z79.899 Other long term (current) drug therapy; Z88.8 Allergy status to other drugs, medicaments and biological substances; Z91.011 Allergy to milk products

== ENCOUNTER 2022-09-11 15:30 | Emergency (ER) | payer MEDICARE, MEDICAID ==
[~2022-09-11] VITALS: Ht 162.6 cm; Wt 11.8 kg
[~2022-09-11 15:30] MED LIST changes: +HYDR-3363 PO
[2022-09-11] MEDS ORDERED: FLUORESCEIN OPHTH 1MG STRIP OS ONE (16:35)
[2022-09-11] MEDS ORDERED: PROPARACAINE 0.5% OPHTH SOL 15ML OS ONE (16:35)
[2022-09-11] MEDS ORDERED: OFLOXACIN 0.3 % (OCUFLOX) OPTH SOL 5ML OS ONE (17:05)
[2022-09-11] MEDS ORDERED: OCUF0.25 OU (17:09)
[2022-09-11] MEDS ORDERED: OFLOXACIN 0.3 % (OCUFLOX) OPTH SOL 5ML OU ONE (17:10)
[2022-09-11 17:30] VITALS: BP 160/98
== END 2022-09-11 17:31 | disposition home or self-care (01) ==
LOC: M ED 15:30
DX: H16.002 Unspecified corneal ulcer, left eye (principal); H10.9 Unspecified conjunctivitis; I10 Essential (primary) hypertension; K21.9 Gastro-esophageal reflux disease without esophagitis; F17.200 Nicotine dependence, unspecified, uncomplicated; Z79.899 Other long term (current) drug therapy; Z88.8 Allergy status to other drugs, medicaments and biological substances; Z91.011 Allergy to milk products

== ENCOUNTER 2022-12-03 13:14 | Emergency (ER) | payer MEDICARE, MEDICAID ==
[~2022-12-03] VITALS: Ht 162.6 cm; Wt 113.6 kg
[~2022-12-03 13:14] MED LIST changes: +FLUT50SP17; -FLUTISP; +OCUF0.25 OU
[2022-12-03] MEDS ORDERED: PERCOCET 5MG/325MG TAB PO ONE (15:20)
[2022-12-03 17:14] VITALS: BP 179/87
== END 2022-12-03 17:24 | disposition home or self-care (01) ==
LOC: M ED 13:14
DX: S50.311A Abrasion of right elbow, initial encounter (principal); S80.212A Abrasion, left knee, initial encounter; S96.911A Strain of unspecified muscle and tendon at ankle and foot level, right foot, initial encounter; S39.012A Strain of muscle, fascia and tendon of lower back, initial encounter; W10.9XXA Fall (on) (from) unspecified stairs and steps, initial encounter; Y92.89 Other specified places as the place of occurrence of the external cause; Y93.01 Activity, walking, marching and hiking; Y99.0 Civilian activity done for income or pay; I10 Essential (primary) hypertension; F41.9 Anxiety disorder, unspecified; E66.01 Morbid (severe) obesity due to excess calories

== ENCOUNTER 2022-12-07 21:55 | Emergency (ER) | payer MEDICARE, MEDICAID ==
[~2022-12-07] VITALS: Ht 162.6 cm; Wt 98.9 kg
[2022-12-07 21:56] VITALS: BP 176/100
== END 2022-12-07 23:44 | disposition left against medical advice (07) ==
LOC: M ED 21:55
DX: M25.562 Pain in left knee (principal); Z53.21 Procedure and treatment not carried out due to patient leaving prior to being seen by health care provider

== ENCOUNTER → 2023-01-04 | Outpatient (REF) | payer MEDICARE, MEDICAID ==
[2023-01-04 17:43] LABS: BASO % 0.2 % (0.0-1.0); EOS # 0.1 10^3/uL (0.0-0.5); EOS % 0.5 % (0.0-3.0); HEMATOCRIT 43.5 % (36.0-47.0); HEMOGLOBIN 13.9 g/dl (12.0-15.5); LYMPH # 4.6 10^3/uL (1.5-5.0); LYMPH % 50.2 % (24.0-44.0); MEAN CORPUSCULAR HEMOGLOBIN 28.7 pg (27.0-33.0); MEAN CORPUSCULAR VOLUME 89.7 fl (80.0-96.0); MONO # 0.7 10^3/uL (0.0-0.8); MONO % 7.1 % (2.0-8.0); NEUTROPHILS # 3.8 10^3/uL (1.5-8.5); NEUTROPHILS % 41.8 % (36.0-66.0); PLATELET COUNT, AUTOMATED 354 10^3/uL (150-450); RED BLOOD COUNT 4.85 10^6/uL (4.00-5.40); WHITE BLOOD COUNT 9.1 10^3/uL (4.0-10.0)
[2023-01-04 17:53] LABS: ERYTHROCYTE SEDIMENTATION RATE 79 mm/hr (0-20)
[2023-01-04 18:06] LABS: THYROID STIMULATING HORMONE 2.422 uIU/ML (0.55-4.78); TOTAL 25(OH) VITAMIN D 9.7 NG/ML (20.0-100.0)
[2023-01-04 18:07] LABS: RHEUMATOID FACTOR QUANT < 3.5 IU/ML (<14)
[2023-01-04 18:08] LABS: ALBUMIN 3.3 G/DL (3.2-5.2); ALKALINE PHOSPHATASE 105 U/L (46-116); ALT/SGPT 12 U/L (7.0-40); AST/SGOT 17 U/L (<34); BILIRUBIN,TOTAL 0.3 MG/DL (0.3-1.2); BLOOD UREA NITROGEN 8 MG/DL (9-23); CARBON DIOXIDE LEVEL 25 MMOL/L (20-31); CHLORIDE LEVEL 103 MMOL/L (98-107); CHOLESTEROL LEVEL 279 MG/DL (<200); CHOLESTEROL RISK RATIO 5.58 (<5); CREATININE FOR GFR 0.68 MG/DL (0.55-1.30); GLOMERULAR FILTRATION RATE > 60.0 (>58); GLUCOSE, FASTING 79 MG/DL (60-100); POTASSIUM SERUM 4.1 MMOL/L (3.5-5.1); SODIUM LEVEL 137 MMOL/L (136-145); TOTAL PROTEIN 7.6 G/DL (5.7-8.2); TRIGLYCERIDES LEVEL 195 MG/DL (<150)
[2023-01-04 18:35] LABS: HEMOGLOBIN A1c 5.6 % (4.0-6.0)
== END ==
LOC: M LAB REF 16:46
PROVIDERS: ATTEND Nurse Practitioner Family
DX: E55.9 Vitamin D deficiency, unspecified (principal); E66.9 Obesity, unspecified; Z11.9 Encounter for screening for infectious and parasitic diseases, unspecified; R69 Illness, unspecified

== ENCOUNTER 2023-01-09 20:45 | Emergency (ER) | payer MEDICARE, MEDICAID ==
[~2023-01-09] VITALS: Ht 162.6 cm; Wt 113.6 kg
[2023-01-09] MEDS ORDERED: TETRACAINE 0.5% OPHTH SOLN 4ML OU ONE (21:50)
[2023-01-09] MEDS ORDERED: FLUORESCEIN OPHTH 1MG STRIP OU ONE (21:50)
[2023-01-09 22:03] LABS: HEMATOCRIT 41.1 % (36.0-47.0); HEMOGLOBIN 13.4 g/dl (12.0-15.5); MEAN CORPUSCULAR HEMOGLOBIN 29.2 pg (27.0-33.0); MEAN CORPUSCULAR HGB CONC 32.6 g/dl (32.0-36.5); MEAN CORPUSCULAR VOLUME 89.5 fl (80.0-96.0); PLATELET COUNT, AUTOMATED 391 10^3/uL (150-450); RED BLOOD COUNT 4.59 10^6/uL (4.00-5.40); WHITE BLOOD COUNT 8.7 10^3/uL (4.0-10.0)
[2023-01-09] MEDS ORDERED: CEFTAZIDIME OP (22:04)
[2023-01-09] MEDS ORDERED: CYCL1SOL14 OP (22:05)
[2023-01-09] MEDS ORDERED: [UNRECOGNIZED DRUG - OTHER] OP (22:06)
[2023-01-09] MEDS ORDERED: OFLO5DRO OP (22:07)
[2023-01-09] MEDS ORDERED: VORICONAZOLE OP (22:09)
[2023-01-09] MEDS ORDERED: vancomycin OP (22:09)
[2023-01-09] MEDS ORDERED: OXYCODONE/APAP 5MG/325MG(HOME DOSE PACK) PO ONE (22:30)
[2023-01-09] MEDS ORDERED: PERC5TAB12 PO (22:47)
[2023-01-09 23:03] VITALS: BP 182/98
== END 2023-01-09 23:04 | disposition home or self-care (01) ==
LOC: M ED 20:45
DX: H16.003 Unspecified corneal ulcer, bilateral (principal); I25.10 Atherosclerotic heart disease of native coronary artery without angina pectoris; I25.2 Old myocardial infarction; I10 Essential (primary) hypertension; Z91.011 Allergy to milk products; Z88.8 Allergy status to other drugs, medicaments and biological substances; F17.200 Nicotine dependence, unspecified, uncomplicated; Z79.899 Other long term (current) drug therapy

== ENCOUNTER 2023-02-05 22:43 | Emergency (ER) | payer MEDICARE, MEDICAID ==
[~2023-02-05] VITALS: Ht 162.6 cm; Wt 120.0 kg
[~2023-02-05 22:43] MED LIST changes: +CEFTAZIDIME OP; +CYCL1SOL14 OP; +OFLO5DRO OP; +PERC5TAB12 PO; +VORICONAZOLE OP; +[UNRECOGNIZED DRUG - OTHER] OP; +vancomycin OP
[2023-02-05] MEDS ORDERED: METH4PACK (22:56)
[2023-02-05] MEDS ORDERED: METH-1164 (22:56)
[2023-02-05] MEDS ORDERED: IBUP80TA (22:56)
[2023-02-05] MEDS ORDERED: GABA-1171 (22:56)
[2023-02-06 00:27] LABS: LIPASE 36 U/L (12-53)
[2023-02-06 00:29] LABS: ALBUMIN 3.3 G/DL (3.2-5.2); ALKALINE PHOSPHATASE 128 U/L (46-116); ALT/SGPT 13 U/L (7.0-40); AST/SGOT < 8 U/L (<34); BILIRUBIN,DIRECT < 0.1 MG/DL (<0.4); BILIRUBIN,TOTAL < 0.2 MG/DL (0.3-1.2); BLOOD UREA NITROGEN 12 MG/DL (9-23); CALCIUM LEVEL 8.9 MG/DL (8.5-10.1); CARBON DIOXIDE LEVEL 28 MMOL/L (20-31); CHLORIDE LEVEL 105 MMOL/L (98-107); CK-MB VALUE MASS < 1.0 NG/ML (<3.6); CREATININE FOR GFR 0.72 MG/DL (0.55-1.30); GLOMERULAR FILTRATION RATE > 60.0 (>58); GLUCOSE, FASTING 103 MG/DL (60-100); POTASSIUM SERUM 3.7 MMOL/L (3.5-5.1); SODIUM LEVEL 138 MMOL/L (136-145)
[2023-02-06 00:32] LABS: CPK CREATINE PHOSPHOKINASE 73 U/L (34-145); MB/CK RELATIVE INDEX 1.36 (< OR =4)
[2023-02-06 00:49] LABS: BASO # 0.1 10^3/uL (0.0-0.2); BASO % 0.3 % (0.0-1.0); EOS # 0.3 10^3/uL (0.0-0.5); EOS % 2.3 % (0.0-3.0); HEMOGLOBIN 12.7 g/dl (12.0-15.5); LYMPH # 7.6 10^3/uL (1.5-5.0); LYMPH % 51.2 % (24.0-44.0); MEAN CORPUSCULAR HEMOGLOBIN 28.7 pg (27.0-33.0); MEAN CORPUSCULAR HGB CONC 31.8 g/dl (32.0-36.5); MEAN CORPUSCULAR VOLUME 90.5 fl (80.0-96.0); MONO % 6.9 % (2.0-8.0); NEUTROPHILS # 5.8 10^3/uL (1.5-8.5); PLATELET COUNT, AUTOMATED 380 10^3/uL (150-450); RED BLOOD COUNT 4.42 10^6/uL (4.00-5.40); WHITE BLOOD COUNT 14.9 10^3/uL (4.0-10.0)
[2023-02-06] MEDS ORDERED: PANTOPRAZOLE 40MG VIAL IV ONE (01:00)
[2023-02-06] MEDS ORDERED: ONDANSETRON 4MG 2ML VIAL IV ONE (01:00)
[2023-02-06] MEDS ORDERED: MORPHINE 4 MG/ML 1ML VIAL IV PRN (01:00)
[2023-02-06] MEDS ORDERED: GASTROGRAFIN SOLUTION 30ML As Ordered ONE (01:10)
[2023-02-06] MEDS ORDERED: ISOVUE-370 76% 100ML VIAL As Ordered ONE (01:11)
[2023-02-06] MEDS: GASTROGRAFIN SOLUTION 30ML PO SCH ×2 (01:15→01:45)
[2023-02-06] MEDS ORDERED: SUCRALFATE 1 GM TAB PO ONE (04:50)
[2023-02-06] MEDS ORDERED: FAMOTIDINE 20 MG TAB PO ONE (04:50)
[2023-02-06] MEDS ORDERED: PEPC1TAB5 PO (04:51)
[2023-02-06] MEDS ORDERED: OMEP40CA4 PO (04:51)
[2023-02-06] MEDS ORDERED: CARA1TAB6 PO (04:51)
[2023-02-06 05:06] VITALS: BP 132/75; TEMP 98.4; O2SAT 99
== END 2023-02-06 05:13 | disposition home or self-care (01) ==
LOC: M ED 22:43
DX: K30 Functional dyspepsia (principal); I25.10 Atherosclerotic heart disease of native coronary artery without angina pectoris; I25.2 Old myocardial infarction; G93.2 Benign intracranial hypertension; F17.200 Nicotine dependence, unspecified, uncomplicated; Z88.8 Allergy status to other drugs, medicaments and biological substances; Z91.011 Allergy to milk products; Z79.899 Other long term (current) drug therapy
CPT/HCPCS: 74177; 80048; 80076; 82550; 82553; 83605; 83690; 84484; 85025; 93005; 93041; 96374; 96375; 99285; C9113; J2405; Q9967

== ENCOUNTER → 2023-06-07 | Outpatient (CLI) | payer MEDICARE, MEDICAID ==
[~2023-06-07] MED LIST changes: +AMOX500C PO; +CARA1TAB6 PO; +GABA-1171; +IBUP80TA; +METH-1164; +METH4PACK; +PEPC1TAB5 PO; +ZOLP10TA2
== END ==
LOC: M SOG 07:50
PROVIDERS: ATTEND Physician Assistant
DX: M79.641 Pain in right hand (principal)

== ENCOUNTER → 2023-06-17 | Outpatient (CLI) | payer MEDICARE, MEDICAID | LOC: M PAIN 11:15 | PROVIDERS: ATTEND Nurse Practitioner Family | DX: M79.18 Myalgia, other site (principal); G89.29 Other chronic pain; I10 Essential (primary) hypertension; F41.1 Generalized anxiety disorder; M47.816 Spondylosis without myelopathy or radiculopathy, lumbar region; I25.2 Old myocardial infarction; M54.50 Low back pain, unspecified; R51.9 Headache, unspecified; F17.210 Nicotine dependence, cigarettes, uncomplicated; Z79.899 Other long term (current) drug therapy ==

== ENCOUNTER → 2023-07-05 | Outpatient (REF) | payer MEDICARE, MEDICAID ==
[2023-07-06 12:36] LABS: BASO % 0.5 % (0.0-1.0); EOS # 0.1 10^3/uL (0.0-0.5); EOS % 1.1 % (0.0-3.0); HEMATOCRIT 40.9 % (36.0-47.0); HEMOGLOBIN 13.2 g/dl (12.0-15.5); LYMPH # 3.3 10^3/uL (1.5-5.0); LYMPH % 40.3 % (24.0-44.0); MEAN CORPUSCULAR HEMOGLOBIN 28.4 pg (27.0-33.0); MEAN CORPUSCULAR HGB CONC 32.3 g/dl (32.0-36.5); MEAN CORPUSCULAR VOLUME 88.1 fl (80.0-96.0); MONO # 0.9 10^3/uL (0.0-0.8); NEUTROPHILS # 3.8 10^3/uL (1.5-8.5); NEUTROPHILS % 46.9 % (36.0-66.0); PLATELET COUNT, AUTOMATED 455 10^3/uL (150-450); RED BLOOD COUNT 4.64 10^6/uL (4.00-5.40); WHITE BLOOD COUNT 8.2 10^3/uL (4.0-10.0)
[2023-07-06 12:43] LABS: ERYTHROCYTE SEDIMENTATION RATE 81 mm/hr (0-20)
== END ==
LOC: M LAB REF 11:54
PROVIDERS: ATTEND Nurse Practitioner Family
DX: G89.29 Other chronic pain (principal)

== ENCOUNTER → 2023-08-24 | Outpatient (CLI) | payer MEDICARE, MEDICAID ==
[~2023-08-24] MED LIST changes: -FLUT50SP17; +FLUTISP
== END ==
LOC: M PAIN 16:15
PROVIDERS: ATTEND Anesthesiology
DX: M51.16 Intervertebral disc disorders with radiculopathy, lumbar region (principal); M47.816 Spondylosis without myelopathy or radiculopathy, lumbar region; G89.29 Other chronic pain; I10 Essential (primary) hypertension; F41.1 Generalized anxiety disorder; F17.200 Nicotine dependence, unspecified, uncomplicated; Z79.899 Other long term (current) drug therapy; Z88.8 Allergy status to other drugs, medicaments and biological substances; Z91.011 Allergy to milk products

== ENCOUNTER → 2023-10-19 | Outpatient (CLI) | payer MEDICARE, MEDICAID | LOC: M PLAIMG 14:06 | PROVIDERS: ATTEND Psychiatry & Neurology Neurology | DX: G93.2 Benign intracranial hypertension (principal) ==

== ENCOUNTER 2023-11-06 21:24 | Emergency (ER) | payer MEDICARE, MEDICAID ==
[~2023-11-06] VITALS: Ht 162.6 cm; Wt 113.3 kg
[2023-11-06 21:38] VITALS: BP 178/100; TEMP 97.4; O2SAT 100
[2023-11-07 01:26] VITALS: BP 182/105
[2023-11-07] MEDS: NS 1,000 ML IV ONE (01:26)
[2023-11-07] MEDS: hydrALAZINE 20MG/ML 1ML VIAL IV ONE (01:26)
[2023-11-07] MEDS: MAG SULF 1GM/100ML (MAG RUN) 1 GM in IV 1 EA IV ONE (01:27)
[2023-11-07] MEDS: METOCLOPRAMIDE INJ 10MG/2ML VIAL IV ONE (01:28)
[2023-11-07] MEDS: KETOROLAC 30 MG/ML 1ML VIAL IV ONE (01:28)
[2023-11-07 01:37] LABS: BASO % 0.3 % (0.0-1.0); EOS # 0.3 10^3/uL (0.0-0.5); EOS % 2.4 % (0.0-3.0); HEMATOCRIT 36.3 % (36.0-47.0); HEMOGLOBIN 11.7 g/dl (12.0-15.5); LYMPH # 4.4 10^3/uL (1.5-5.0); MEAN CORPUSCULAR HGB CONC 32.2 g/dl (32.0-36.5); MEAN CORPUSCULAR VOLUME 89.9 fl (80.0-96.0); MONO % 9.1 % (2.0-8.0); NEUTROPHILS # 5.5 10^3/uL (1.5-8.5); PLATELET COUNT, AUTOMATED 377 10^3/uL (150-450); RED BLOOD COUNT 4.04 10^6/uL (4.00-5.40); WHITE BLOOD COUNT 11.3 10^3/uL (4.0-10.0)
[2023-11-07 01:47] LABS: HEMOGLOBIN A1c 5.9 % (4.0-6.0)
[2023-11-07 01:55] LABS: AMPHETAMINES LEVEL URINE POSITIVE (NEGATIVE); BARBITURATES URINE NEGATIVE (NEGATIVE); BENZODIAZEPINES URINE POSITIVE (NEGATIVE); CANNABINOIDS URINE NEGATIVE (NEGATIVE); COCAINE METABOLITE URINE NEGATIVE (NEGATIVE); METHADONE URINE NEGATIVE (NEGATIVE); OPIATES URINE POSITIVE (NEGATIVE); PHENCYCLIDINE URINE NEGATIVE (NEGATIVE)
[2023-11-07 01:57] LABS: ETHYL ALCOHOL (ETHANOL) 0.005 % (0.000-0.010)
[2023-11-07 01:59] LABS: BLOOD UREA NITROGEN 15 MG/DL (9-23); CALCIUM LEVEL 8.7 MG/DL (8.5-10.1); CARBON DIOXIDE LEVEL 27 MMOL/L (20-31); CHLORIDE LEVEL 106 MMOL/L (98-107); CK-MB VALUE MASS < 1.0 NG/ML (<3.6); CREATININE FOR GFR 0.79 MG/DL (0.55-1.30); GLOMERULAR FILTRATION RATE > 60.0 (>58); GLUCOSE, FASTING 90 MG/DL (60-100); SODIUM LEVEL 138 MMOL/L (136-145)
[2023-11-07 02:01] LABS: THYROID STIMULATING HORMONE 2.005 uIU/ML (0.55-4.78)
[2023-11-07 02:02] LABS: FREE T4 1.07 NG/DL (0.89-1.76)
[2023-11-07 02:04] LABS: CPK CREATINE PHOSPHOKINASE 83 U/L (34-145)
[2023-11-07 03:46] LABS: RSV AMPLIFICATION NEGATIVE (NEGATIVE)
== END 2023-11-07 07:38 | disposition home or self-care (01) ==
LOC: M ED 21:24
DX: R51.9 Headache, unspecified (principal); E86.0 Dehydration; R55 Syncope and collapse; I10 Essential (primary) hypertension; K21.9 Gastro-esophageal reflux disease without esophagitis; Z88.8 Allergy status to other drugs, medicaments and biological substances; Z91.011 Allergy to milk products; Z79.899 Other long term (current) drug therapy; Z79.2 Long term (current) use of antibiotics
CPT/HCPCS: 70450; 80048; 80307; 82077; 82550; 82553; 83036; 84439; 84443; 84484; 85025; 85379; 87631; 93005; 93041; 94760; 96374; 96375; 99284; J0360; J1100; J1885; J2765; J3475

== ENCOUNTER 2023-11-18 20:38 | Emergency (ER) | payer MEDICAID, MEDICARE ==
[~2023-11-18] VITALS: Ht 162.6 cm; Wt 118.2 kg
[2023-11-19] MEDS: ACETAMINOPHEN 500 MG TAB PO ONE (10:30)
[2023-11-19] MEDS: METOCLOPRAMIDE INJ 10MG/2ML VIAL IV ONE (10:32)
[2023-11-19] MEDS: NS 1,000 ML IV ONE (10:32)
[2023-11-19] MEDS: diphenhydrAMINE 50MG/ML VIAL IV ONE (10:32)
[2023-11-19 10:48] LABS: ERYTHROCYTE SEDIMENTATION RATE 90 mm/hr (0-20)
[2023-11-19 10:51] LABS: HEMATOCRIT 41.3 % (36.0-47.0); HEMOGLOBIN 13.5 g/dl (12.0-15.5); MEAN CORPUSCULAR HEMOGLOBIN 29.5 pg (27.0-33.0); MEAN CORPUSCULAR HGB CONC 32.7 g/dl (32.0-36.5); MEAN CORPUSCULAR VOLUME 90.2 fl (80.0-96.0); PLATELET COUNT, AUTOMATED 417 10^3/uL (150-450); RED BLOOD COUNT 4.58 10^6/uL (4.00-5.40); WHITE BLOOD COUNT 10.1 10^3/uL (4.0-10.0)
[2023-11-19 10:56] LABS: INR 0.95; PARTIAL THROMBOPLASTIN TIME 28.3 SECONDS (24.8-34.2); PROTHROMBIN TIME 12.4 SECONDS (12.5-14.5)
[2023-11-19 11:07] LABS: BLOOD UREA NITROGEN 13 MG/DL (9-23); CALCIUM LEVEL 8.5 MG/DL (8.5-10.1); CARBON DIOXIDE LEVEL 26 MMOL/L (20-31); CHLORIDE LEVEL 108 MMOL/L (98-107); CREATININE FOR GFR 0.64 MG/DL (0.55-1.30); GLOMERULAR FILTRATION RATE > 60.0 (>58); GLUCOSE, FASTING 104 MG/DL (60-100); SODIUM LEVEL 140 MMOL/L (136-145)
[2023-11-19 11:18] LABS: ATYPICAL LYMPH 5 % (0-5); EOSINOPHILS 4 % (0-3); LYMPHOCYTES 46 % (16-44); MONOCYTES 4 % (0-5); NEUTROPHILS 41 % (28-66)
[2023-11-19 11:20] LABS: ANISOCYTOSIS 1+; PLATELET ESTIMATE NORMAL (NORMAL)
[2023-11-19] MEDS ORDERED: LIDOCAINE W/EPINEPHRINE 1% 20ML VIAL As Ordered ONE (11:54)
[2023-11-19 13:49] VITALS: BP 131/63; TEMP 97.6; O2SAT 92
[2023-11-21] MEDS ORDERED: LIDOCAINE W/EPINEPHRINE 1% 20ML VIAL SC ONE (08:30)
== END 2023-11-19 14:10 | disposition home or self-care (01) ==
LOC: M ED 20:38
DX: G93.2 Benign intracranial hypertension (principal); R00.0 Tachycardia, unspecified; I25.2 Old myocardial infarction; I25.119 Atherosclerotic heart disease of native coronary artery with unspecified angina pectoris; I10 Essential (primary) hypertension; K21.9 Gastro-esophageal reflux disease without esophagitis; F17.210 Nicotine dependence, cigarettes, uncomplicated; Z88.8 Allergy status to other drugs, medicaments and biological substances; Z91.011 Allergy to milk products; Z79.2 Long term (current) use of antibiotics; Z79.899 Other long term (current) drug therapy
CPT/HCPCS: 70450; 71045; 80048; 84702; 85025; 85610; 85652; 85730; 86140; 93005; 96361; 96374; 99284; J1200; J2765

== ENCOUNTER 2023-11-23 20:41 | Emergency (ER) | payer MEDICAID, MEDICARE ==
[~2023-11-23] VITALS: Ht 162.6 cm; Wt 117.0 kg
[~2023-11-23 20:41] MED LIST changes: -FIOR1CAP PO
[2023-11-23 23:42] VITALS: BP 179/94; TEMP 97.2; O2SAT 100
[2023-11-24] MEDS ORDERED: KETOROLAC 30 MG/ML 1ML VIAL IV ONE (00:15)
[2023-11-24] MEDS ORDERED: FIOR1CAP PO (00:24)
[2023-11-24] MEDS: FIORICET TAB PO ONE (00:27)
[2023-11-24] MEDS: KETOROLAC 60MG 2ML VIAL IM ONE (00:27)
== END 2023-11-24 00:51 | disposition home or self-care (01) ==
LOC: M ED 20:41
DX: G97.1 Other reaction to spinal and lumbar puncture (principal); R51.9 Headache, unspecified; F17.210 Nicotine dependence, cigarettes, uncomplicated; Z88.8 Allergy status to other drugs, medicaments and biological substances; Z91.011 Allergy to milk products; Z79.1 Long term (current) use of non-steroidal anti-inflammatories (NSAID); Z79.2 Long term (current) use of antibiotics; Z79.899 Other long term (current) drug therapy
CPT/HCPCS: 93005; 96372; 96374; 99284; G0463; J1885

== ENCOUNTER → 2023-11-23 | Outpatient (CLI) | payer MEDICARE, MEDICAID ==
[~2023-11-23] MED LIST changes: +FIOR1CAP PO
== END ==
LOC: M PAIN 16:30
PROVIDERS: ATTEND Anesthesiology
DX: M54.50 Low back pain, unspecified (principal); M79.10 Myalgia, unspecified site; G93.2 Benign intracranial hypertension; M79.18 Myalgia, other site

== ENCOUNTER 2024-02-01 18:15 | Emergency (ER) | payer MEDICARE ==
[~2024-02-01] VITALS: Ht 162.6 cm; Wt 118.7 kg
[~2024-02-01 18:15] MED LIST changes: +FIOR1CAP PO; +ONDA-282 PO; -ONDA4TAB6 PO
[2024-02-01 18:16] VITALS: BP 128/85; TEMP 98.6; O2SAT 99
[2024-02-01] MEDS ORDERED: ACET300T47 (18:28)
[2024-02-01] MEDS ORDERED: METF-838 (18:28)
[2024-02-01] MEDS ORDERED: TIZA10TA (18:28)
[2024-02-01] MEDS ORDERED: AMLO1TAB24 (18:28)
[2024-02-01] MEDS ORDERED: HYDR12CA (18:28)
[2024-02-01] MEDS ORDERED: EPIN0.3I11 (18:28)
[2024-02-01] MEDS ORDERED: GABA-282 (18:28)
[2024-02-01] MEDS ORDERED: ONDA-83 (18:28)
[2024-02-01] MEDS ORDERED: METH20TA29 (18:28)
[2024-02-01] MEDS ORDERED: ATOG30TA (18:28)
[2024-02-01] MEDS ORDERED: ALPR0.5T3 (18:28)
== END 2024-02-02 00:47 | disposition left against medical advice (07) ==
LOC: M ED 18:15
DX: Z53.21 Procedure and treatment not carried out due to patient leaving prior to being seen by health care provider (principal)

== ENCOUNTER → 2024-02-14 | Outpatient (REF) | payer MEDICARE ==
[~2024-02-14] MED LIST changes: +ACET300T47; +ALPR0.5T3; +AMLO1TAB24; +ATOG30TA; +EPIN0.3I11; +GABA-282; +HYDR12CA; +METF-838; +METH20TA29; +ONDA-83; +TIZA10TA
[2024-02-15 12:26] LABS: CREATININE, URINE 127.4 MG/DL; MALB URINE SIEMENS < 3.0 MG/L; MAU/CREAT RATIO 2.3 MCG/MG (0.0-30.0)
== END ==
LOC: M LAB REF 10:04
PROVIDERS: ATTEND Nurse Practitioner Family
DX: I10 Essential (primary) hypertension (principal)

== ENCOUNTER → 2024-06-22 | Outpatient (CLI) | payer MEDICARE, MEDICAID ==
[~2024-06-22] MED LIST changes: +GABA-1172; -GABA-282
== END ==
LOC: M CARPUL 08:15
PROVIDERS: ATTEND Nurse Practitioner Family
DX: I31.39 Other pericardial effusion (noninflammatory) (principal)

== ENCOUNTER 2024-08-05 01:11 | Emergency (ER) | payer MEDICARE, MEDICAID ==
[~2024-08-05] VITALS: Ht 162.6 cm; Wt 260.0 kg
[2024-08-05] MEDS: METOCLOPRAMIDE INJ 10MG/2ML VIAL IV ONE (03:39)
[2024-08-05] MEDS: MECLIZINE 25 MG TABLET PO ONE (03:40)
[2024-08-05 03:56] LABS: BASO % 0.3 % (0.0-1.0); EOS # 0.3 10^3/uL (0.0-0.5); EOS % 2.8 % (0.0-3.0); HEMATOCRIT 40.9 % (36.0-47.0); HEMOGLOBIN 13.3 g/dl (12.0-15.5); LYMPH # 5.2 10^3/uL (1.5-5.0); LYMPH % 46.8 % (24.0-44.0); MEAN CORPUSCULAR HEMOGLOBIN 28.8 pg (27.0-33.0); MEAN CORPUSCULAR HGB CONC 32.5 g/dl (32.0-36.5); MEAN CORPUSCULAR VOLUME 88.5 fl (80.0-96.0); MONO % 8.9 % (2.0-8.0); NEUTROPHILS # 4.5 10^3/uL (1.5-8.5); NEUTROPHILS % 40.9 % (36.0-66.0); PLATELET COUNT, AUTOMATED 365 10^3/uL (150-450); RED BLOOD COUNT 4.62 10^6/uL (4.00-5.40)
[2024-08-05 04:04] LABS: ALBUMIN 3.1 G/DL (3.2-5.2); ALKALINE PHOSPHATASE 116 U/L (35-104); ALT/SGPT 15 U/L (7.0-40); AST/SGOT 12 U/L (<34); BILIRUBIN,TOTAL < 0.2 MG/DL (0.3-1.2); BLOOD UREA NITROGEN 14 MG/DL (9-23); CALCIUM LEVEL 8.8 MG/DL (8.5-10.1); CARBON DIOXIDE LEVEL 34 MMOL/L (20-31); CHLORIDE LEVEL 102 MMOL/L (98-107); CREATININE FOR GFR 0.76 MG/DL (0.55-1.30); GLOMERULAR FILTRATION RATE > 60.0 (>58); GLUCOSE, FASTING 126 MG/DL (60-100); MAGNESIUM LEVEL 1.8 MG/DL (1.8-2.4); PHOSPHORUS LEVEL 3.1 MG/DL (2.5-4.9); POTASSIUM SERUM 3.3 MMOL/L (3.5-5.1); SODIUM LEVEL 142 MMOL/L (136-145); TOTAL PROTEIN 7.3 G/DL (5.7-8.2)
[2024-08-05 04:08] LABS: INR 0.93; PARTIAL THROMBOPLASTIN TIME 30.4 SECONDS (24.8-34.2); PROTHROMBIN TIME 12.8 SECONDS (12.5-14.5)
[2024-08-05] MEDS ORDERED: ISOVUE-370 76% 100ML VIAL As Ordered ONE (04:23)
[2024-08-05 07:30] VITALS: BP 137/104; TEMP 97.4; O2SAT 94
[2024-08-05] MEDS ORDERED: MECL-209 PO (07:53)
[2024-08-05] MEDS ORDERED: ONDA-282 PO (07:53)
== END 2024-08-05 07:50 | disposition home or self-care (01) ==
LOC: M ED 01:11
DX: R42 Dizziness and giddiness (principal); E11.9 Type 2 diabetes mellitus without complications; F17.210 Nicotine dependence, cigarettes, uncomplicated; Z88.8 Allergy status to other drugs, medicaments and biological substances; Z91.011 Allergy to milk products; Z79.1 Long term (current) use of non-steroidal anti-inflammatories (NSAID); Z79.84 Long term (current) use of oral hypoglycemic drugs; Z79.899 Other long term (current) drug therapy
CPT/HCPCS: 70450; 70496; 70498; 80053; 83735; 84100; 84484; 85025; 85610; 85730; 96374; 99285; J2765; Q9967

== ENCOUNTER → 2024-09-13 | Outpatient (CLI) | payer MEDICARE, MEDICAID ==
[~2024-09-13] MED LIST changes: +MECL-209 PO
[2024-09-13 11:55] LABS: ALBUMIN 2.9 G/DL (3.2-5.2); ALKALINE PHOSPHATASE 107 U/L (35-104); ALT/SGPT 18 U/L (7.0-40); AST/SGOT 10 U/L (<34); BILIRUBIN,DIRECT < 0.1 MG/DL (<0.4); BILIRUBIN,TOTAL 0.2 MG/DL (0.3-1.2); BLOOD UREA NITROGEN 11 MG/DL (9-23); CARBON DIOXIDE LEVEL 27 MMOL/L (20-31); CHLORIDE LEVEL 105 MMOL/L (98-107); CHOLESTEROL LEVEL 254 MG/DL (<200); CHOLESTEROL RISK RATIO 5.29 (<5); CREATININE FOR GFR 0.61 MG/DL (0.55-1.30); GLOMERULAR FILTRATION RATE > 60.0 (>58); GLUCOSE, FASTING 106 MG/DL (60-100); LDL CHOLESTEROL 183.8 MG/DL (<100); SODIUM LEVEL 141 MMOL/L (136-145); TOTAL PROTEIN 6.9 G/DL (5.7-8.2); TRIGLYCERIDES LEVEL 111 MG/DL (<150)
[2024-09-13 11:59] LABS: THYROID STIMULATING HORMONE 2.655 uIU/ML (0.55-4.78)
== END ==
LOC: M LAB 10:08
PROVIDERS: ATTEND Nurse Practitioner Family
DX: E87.6 Hypokalemia (principal); E78.2 Mixed hyperlipidemia; E66.9 Obesity, unspecified; E66.813 Obesity, class 3; R73.9 Hyperglycemia, unspecified

== ENCOUNTER → 2024-11-08 | Outpatient (CLI) | payer MEDICARE, MEDICAID ==
[2024-11-08 14:42] LABS: BASO % 0.4 % (0.0-1.0); EOS # 0.3 10^3/uL (0.0-0.5); EOS % 2.8 % (0.0-3.0); HEMATOCRIT 38.8 % (36.0-47.0); HEMOGLOBIN 12.7 g/dl (12.0-15.5); LYMPH # 3.8 10^3/uL (1.5-5.0); LYMPH % 34.4 % (24.0-44.0); MEAN CORPUSCULAR HEMOGLOBIN 28.7 pg (27.0-33.0); MEAN CORPUSCULAR HGB CONC 32.7 g/dl (32.0-36.5); MEAN CORPUSCULAR VOLUME 87.6 fl (80.0-96.0); MONO # 0.7 10^3/uL (0.0-0.8); MONO % 6.7 % (2.0-8.0); NEUTROPHILS # 6.2 10^3/uL (1.5-8.5); NEUTROPHILS % 55.5 % (36.0-66.0); PLATELET COUNT, AUTOMATED 418 10^3/uL (150-450); RED BLOOD COUNT 4.43 10^6/uL (4.00-5.40); WHITE BLOOD COUNT 11.1 10^3/uL (4.0-10.0)
[2024-11-08 14:46] LABS: ERYTHROCYTE SEDIMENTATION RATE 90 mm/hr (0-20)
[2024-11-08 14:54] LABS: INR 0.91; PARTIAL THROMBOPLASTIN TIME 21.7 SECONDS (24.8-34.2); PROTHROMBIN TIME 12.6 SECONDS (12.5-14.5)
[2024-11-08 15:18] LABS: ALBUMIN 3.4 G/DL (3.2-5.2); ALKALINE PHOSPHATASE 119 U/L (35-104); ALT/SGPT 27 U/L (7.0-40); AST/SGOT 24 U/L (<34); BILIRUBIN,TOTAL < 0.2 MG/DL (0.3-1.2); BLOOD UREA NITROGEN 10 MG/DL (9-23); CALCIUM LEVEL 9.1 MG/DL (8.5-10.1); CARBON DIOXIDE LEVEL 30 MMOL/L (20-31); CHLORIDE LEVEL 104 MMOL/L (98-107); CREATININE FOR GFR 0.82 MG/DL (0.55-1.30); GLOMERULAR FILTRATION RATE > 60.0 (>58); GLUCOSE, FASTING 105 MG/DL (60-100); POTASSIUM SERUM 3.9 MMOL/L (3.5-5.1); SODIUM LEVEL 140 MMOL/L (136-145); TOTAL PROTEIN 7.9 G/DL (5.7-8.2)
[2024-11-13 06:57] LABS: ANA PATTERN Nuclear, Nucleolar (NEGATIVE); ANA SCREEN, IFA POSITIVE (NEGATIVE)
[2024-11-14 13:01] LABS: HLA-B27 Negative (Negative)
== END ==
LOC: M LAB 13:40
PROVIDERS: ATTEND Nurse Practitioner Family
DX: R69 Illness, unspecified (principal); Z79.01 Long term (current) use of anticoagulants

== ENCOUNTER → 2024-11-15 | Outpatient (CLI) | payer MEDICARE, MEDICAID | LOC: M EKG 15:00 | PROVIDERS: ATTEND Nurse Practitioner Family | DX: I45.81 Long QT syndrome (principal) ==

== ENCOUNTER → 2024-11-20 | Outpatient (REF) | payer MEDICARE, MEDICAID ==
[2024-11-20 17:54] LABS: URINE PREG TEST NEGATIVE (NEGATIVE)
[2024-11-20 17:58] LABS: APPEARANCE, URINE CLEAR (CLEAR); BACTERIA, URINE AUTO NEGATIVE (NEGATIVE); BILIRUBIN, URINE AUTO NEGATIVE (NEGATIVE); BLOOD, URINE BLOOD 1+ (NEGATIVE); COLOR, URINE STRAW (YELLOW); GLUCOSE, URINE (UA) AUTO NEGATIVE (NEGATIVE); KETONE, URINE AUTO NEGATIVE (NEGATIVE); LEUKOCYTE ESTERASE, URINE AUTO NEGATIVE (NEGATIVE); NITRITE, URINE AUTO NEGATIVE (NEGATIVE); PROTEIN, URINE AUTO NEGATIVE (NEGATIVE); RBC, URINE AUTO 0 /HPF (0-3); SPECIFIC GRAVITY URINE AUTO 1.009 (1.002-1.035); SQUAMOUS EPITHELIAL CELL UR AU 2 /HPF (0-6); UROBILINOGEN, URINE AUTO 0.2 mg/dL (0.0-2.0); WBC, URINE AUTO 1 /HPF (0-3)
== END ==
LOC: M LAB REF 17:05
PROVIDERS: ATTEND Nurse Practitioner Family
DX: Z01.818 Encounter for other preprocedural examination (principal)

== ENCOUNTER 2024-12-13 19:38 | Emergency (ER) | payer MEDICARE, MEDICAID ==
[~2024-12-13] VITALS: Ht 157.5 cm; Wt 124.6 kg
[2024-12-13 20:47] LABS: HEMATOCRIT 39.3 % (36.0-47.0); MEAN CORPUSCULAR HEMOGLOBIN 28.6 pg (27.0-33.0); MEAN CORPUSCULAR HGB CONC 33.1 g/dl (32.0-36.5); MEAN CORPUSCULAR VOLUME 86.4 fl (80.0-96.0); PLATELET COUNT, AUTOMATED 506 10^3/uL (150-450); RED BLOOD COUNT 4.55 10^6/uL (4.00-5.40); WHITE BLOOD COUNT 11.3 10^3/uL (4.0-10.0)
[2024-12-13 20:53] LABS: ERYTHROCYTE SEDIMENTATION RATE 113 mm/hr (0-20)
[2024-12-13 21:09] LABS: ATYPICAL LYMPH 7 % (0-5); BASOPHILS 1 % (0-1); EOSINOPHILS 1 % (0-3); LYMPHOCYTES 43 % (16-44); MONOCYTES 7 % (0-5); NEUTROPHILS 41 % (28-66)
[2024-12-13 21:10] LABS: ANISOCYTOSIS 1+; PLATELET ESTIMATE INCREASED (NORMAL)
[2024-12-13 21:19] LABS: BLOOD UREA NITROGEN 9 MG/DL (9-23); C REACTIVE PROTEIN QUANTITATIV 1.67 MG/DL (<1.0); CALCIUM LEVEL 9.1 MG/DL (8.5-10.1); CARBON DIOXIDE LEVEL 28 MMOL/L (20-31); CHLORIDE LEVEL 106 MMOL/L (98-107); CREATININE FOR GFR 0.75 MG/DL (0.55-1.30); GLOMERULAR FILTRATION RATE > 90.0 (>58); GLUCOSE, FASTING 113 MG/DL (60-100); SODIUM LEVEL 138 MMOL/L (136-145)
[2024-12-13] MEDS: KETOROLAC 30 MG/ML 1ML VIAL IV ONE (22:15)
[2024-12-13] MEDS ORDERED: ISOVUE-370 76% 100ML VIAL As Ordered ONE (22:15)
[2024-12-13 22:29] LABS: LIPASE 28 U/L (12-53)
[2024-12-13 22:31] LABS: ALBUMIN 3.3 G/DL (3.2-5.2); ALKALINE PHOSPHATASE 185 U/L (35-104); ALT/SGPT 15 U/L (7.0-40); AST/SGOT 11 U/L (<34); BILIRUBIN,DIRECT < 0.1 MG/DL (<0.4); BILIRUBIN,TOTAL < 0.2 MG/DL (0.3-1.2); TOTAL PROTEIN 7.9 G/DL (5.7-8.2)
[2024-12-13] MEDS ORDERED: KETO-204 PO (23:50)
[2024-12-14 00:15] VITALS: BP 127/77; TEMP 98.2; O2SAT 99
== END 2024-12-14 00:32 | disposition home or self-care (01) ==
LOC: M ED 19:38
DX: G89.18 Other acute postprocedural pain (principal); K21.9 Gastro-esophageal reflux disease without esophagitis; E11.9 Type 2 diabetes mellitus without complications; F17.210 Nicotine dependence, cigarettes, uncomplicated; Z88.8 Allergy status to other drugs, medicaments and biological substances; Z91.011 Allergy to milk products; Z79.1 Long term (current) use of non-steroidal anti-inflammatories (NSAID); Z79.899 Other long term (current) drug therapy
CPT/HCPCS: 74177; 80048; 80076; 83605; 83690; 85025; 85652; 86140; 87040; 87070; 87077; 87186; 87205; 96374; 99284; J1885; Q9967

== ENCOUNTER 2025-03-19 22:20 | Emergency (ER) | payer MEDICAID, MEDICARE, OTHER ==
[~2025-03-19] VITALS: Ht 162.6 cm; Wt 126.7 kg
[~2025-03-19 22:20] MED LIST changes: +HYDR12.510; -HYDR12CA; +KETO-204 PO
[2025-03-19 22:23] VITALS: TEMP 97.3
[2025-03-19] MEDS: IPRATROPIUM 0.5 MG/ALBUTEROL 2.5 MG INH SOL UD 3 ML NEB ONE (23:11)
[2025-03-19 23:43] LABS: CALCIUM LEVEL 8.5 MG/DL (8.5-10.1); CARBON DIOXIDE LEVEL 23 MMOL/L (20-31); CHLORIDE LEVEL 105 MMOL/L (98-107); CK-MB VALUE MASS 1.3 NG/ML (<3.6); CPK CREATINE PHOSPHOKINASE 99 U/L (34-145); CREATININE FOR GFR 0.69 MG/DL (0.55-1.30); GLOMERULAR FILTRATION RATE > 90.0 (>58); MB/CK RELATIVE INDEX 1.31 (< OR =4); POTASSIUM SERUM 4.4 MMOL/L (3.5-5.1); SODIUM LEVEL 140 MMOL/L (136-145)
[2025-03-20 00:22] LABS: PLATELET COUNT, AUTOMATED 359 10^3/uL (150-450)
[2025-03-20 00:58] LABS: ATYPICAL LYMPH 1 % (0-5); EOSINOPHILS 2 % (0-3); LYMPHOCYTES 36 % (16-44); MONOCYTES 8 % (0-5); NEUTROPHILS 53 % (28-66); PLATELET ESTIMATE NORMAL (NORMAL)
[2025-03-20 01:45] VITALS: BP 147/73
[2025-03-20 02:00] VITALS: O2SAT 97
[2025-03-20] MEDS ORDERED: PRED20TA PO (02:01)
== END 2025-03-20 02:24 | disposition home or self-care (01) ==
LOC: M ED 22:20
DX: R07.89 Other chest pain (principal); J20.9 Acute bronchitis, unspecified; J98.11 Atelectasis; I25.119 Atherosclerotic heart disease of native coronary artery with unspecified angina pectoris; K21.9 Gastro-esophageal reflux disease without esophagitis; F17.210 Nicotine dependence, cigarettes, uncomplicated; Z88.8 Allergy status to other drugs, medicaments and biological substances; Z91.011 Allergy to milk products; Z79.1 Long term (current) use of non-steroidal anti-inflammatories (NSAID); Z79.84 Long term (current) use of oral hypoglycemic drugs; Z79.52 Long term (current) use of systemic steroids; Z79.899 Other long term (current) drug therapy
CPT/HCPCS: 71045; 80048; 82550; 82553; 84484; 85025; 87486; 87581; 87633; 87798; 93005; 93041; 94640; 94760; 96374; 99285; J2919

== ENCOUNTER → 2025-04-19 | Outpatient (REF) | payer MEDICAID ==
[~2025-04-19] MED LIST changes: -IBUP-1022; -IBUP-1022 PO; -IBUP1TAB6 PO; +IBUP600T42; +IBUP600T42 PO; +SFHIBU600 PO
== END ==
LOC: M LAB REF 17:07
PROVIDERS: ATTEND Nurse Practitioner Family
DX: J18.9 Pneumonia, unspecified organism (principal)

== ENCOUNTER 2025-05-15 15:13 | Inpatient (IN) | payer MEDICAID ==
[~2025-05-15] VITALS: Ht 162.6 cm; Wt 132.1 kg
[~2025-05-15 15:13] MED LIST changes: +ZOLP10TA11; +ZOLP10TA11 PO; -ZOLP10TA2; -ZOLP10TA2 PO
[2025-05-15] MEDS ORDERED: ALBU2.5V10 INH (15:19)
[2025-05-15] MEDS: IPRATROPIUM 0.5 MG/ALBUTEROL 2.5 MG INH SOL UD 3 ML NEB PRN (16:28)
[2025-05-15] MEDS: KETOROLAC 30 MG/ML 1 ML VIAL IV ONE (16:55)
[2025-05-15 17:14] LABS: BASO # 0.0 10^3/uL (0.0-0.2); BASO % 0.5 % (0.0-1.0); EOS # 0.2 10^3/uL (0.0-0.5); EOS % 2.7 % (0.0-3.0); LYMPH # 2.1 10^3/uL (1.5-5.0); LYMPH % 28.8 % (24.0-44.0); MONO # 0.7 10^3/uL (0.0-0.8); MONO % 10.1 % (2.0-8.0); NEUTROPHILS # 4.2 10^3/uL (1.5-8.5); NEUTROPHILS % 57.6 % (36.0-66.0); PLATELET COUNT, AUTOMATED 376 10^3/uL (150-450)
[2025-05-15 17:31] LABS: CK-MB VALUE MASS < 1.0 NG/ML (<3.6)
[2025-05-15 17:32] LABS: ALT/SGPT 13 U/L (7.0-40); AST/SGOT 14 U/L (<34); CALCIUM LEVEL 8.4 MG/DL (8.5-10.1); CARBON DIOXIDE LEVEL 27 MMOL/L (20-31); CHLORIDE LEVEL 108 MMOL/L (98-107); CREATININE FOR GFR 0.68 MG/DL (0.55-1.30); GLOMERULAR FILTRATION RATE > 90.0 (>58); POTASSIUM SERUM 3.7 MMOL/L (3.5-5.1); SODIUM LEVEL 137 MMOL/L (136-145)
[2025-05-15 17:39] LABS: CPK CREATINE PHOSPHOKINASE 111 U/L (34-145)
[2025-05-15] MEDS: MORPHINE 2 MG/ML 1 ML VIAL IV ONE (17:52)
[2025-05-15] MEDS ORDERED: TRAZ-252 PO (19:09)
[2025-05-15] MEDS ORDERED: FURO40TA2 PO (19:09)
[2025-05-15] MEDS ORDERED: MED REC COMMENT (19:10)
[2025-05-15] MEDS ORDERED: HOME MED LIST COMPLETE! XX SCH (19:15)
[2025-05-15] MEDS ORDERED: IPRATROPIUM 0.5 MG/ALBUTEROL 2.5 MG INH SOL UD 3 ML NEB PRN (20:35)
[2025-05-15] MEDS: LR 1,000 ML IV SCH (20:35)
[2025-05-15] MEDS ORDERED: MOM 30 ML SUSPENSION UDC PO PRN (20:35)
[2025-05-15] MEDS: ENOXAPARIN 40 MG/0.4 ML SYRINGE (J1650 PER 10MG) SC SCH (21:00)
[2025-05-15] MEDS: amLODIPine 10 MG TAB PO SCH (21:34)
[2025-05-15] MEDS ORDERED: LABETALOL 100 MG/20 ML VIAL IV PRN (22:50)
[2025-05-16] VITALS (11 sets, daily range): BP systolic 132–165; BP diastolic 84–94; TEMP 97.3–98; O2SAT 90–100
[2025-05-16] MEDS: ACETAMINOPHEN 325 MG TAB PO PRN (00:44)
[2025-05-16] MEDS: traZODone 50 MG TAB PO PRN (00:44)
[2025-05-16] MEDS: IPRATROPIUM 0.5 MG/ALBUTEROL 2.5 MG INH SOL UD 3 ML NEB SCH (02:52)
[2025-05-16 06:07] LABS: PLATELET COUNT, AUTOMATED 374 10^3/uL (150-450)
[2025-05-16 06:36] LABS: CALCIUM LEVEL 8.7 MG/DL (8.5-10.1); CARBON DIOXIDE LEVEL 26 MMOL/L (20-31); CHLORIDE LEVEL 107 MMOL/L (98-107); CREATININE FOR GFR 0.65 MG/DL (0.55-1.30); GLOMERULAR FILTRATION RATE > 90.0 (>58); MAGNESIUM LEVEL 1.8 MG/DL (1.8-2.4); POTASSIUM SERUM 4.5 MMOL/L (3.5-5.1); SODIUM LEVEL 139 MMOL/L (136-145)
[2025-05-16] MEDS: SYMBICORT 80/4.5MCG INHALER 6GM INH SCH (11:03)
[2025-05-16] MEDS: PANTOPRAZOLE 40MG VIAL IV SCH (11:14)
[2025-05-16] MEDS: KETOROLAC 30 MG/ML 1 ML VIAL IV SCH (11:15)
[2025-05-16] MEDS: FUROSEMIDE 40 MG TAB PO SCH (11:16)
[2025-05-16] MEDS: guaiFENesin SYRUP 200 MG/10 ML UDC PO PRN (17:21)
[2025-05-16] MEDS: ACETAMINOPHEN *IV* 1,000 MG in IV 1 EA IV ONE (20:52)
[2025-05-16] MEDS: NICOTINE 21 MG/24 HR 1 EA TRANSDERMAL TD SCH (20:54)
[2025-05-17] VITALS (15 sets, daily range): BP systolic 144–170; BP diastolic 80–104; TEMP 97–98.3; O2SAT 94–100
[2025-05-17] MEDS: guaiFENesin SYRUP 200 MG/10 ML UDC PO SCH (01:10)
[2025-05-17 05:40] LABS: PLATELET COUNT, AUTOMATED 399 10^3/uL (150-450)
[2025-05-17 06:05] LABS: CALCIUM LEVEL 8.8 MG/DL (8.5-10.1); CARBON DIOXIDE LEVEL 26.0 MMOL/L (20-31); CHLORIDE LEVEL 111.0 MMOL/L (98-107); CREATININE FOR GFR 0.84 MG/DL (0.55-1.30); GLOMERULAR FILTRATION RATE 88.9 (>58); POTASSIUM SERUM 4.3 MMOL/L (3.5-5.1); SODIUM LEVEL 141.0 MMOL/L (136-145)
[2025-05-17] MEDS ORDERED: AZITHROMYCIN INJ 500 MG, VIAL MATE ADAPTER 1 EACH in NS 250 ML IV SCH (13:05)
[2025-05-17] MEDS: AZITHROMYCIN 250 MG TABLET PO SCH (13:46)
[2025-05-17] MEDS: SYMBICORT 160/4.5MCG INHALER 6GM INH SCH (19:10)
[2025-05-17] MEDS: KETOROLAC 30 MG/ML 1 ML VIAL IV SCH (20:36)
[2025-05-18] VITALS (8 sets, daily range): BP systolic 163–164; BP diastolic 92–96; TEMP 97–97.4; O2SAT 88–99
[2025-05-18 05:33] LABS: PLATELET COUNT, AUTOMATED 397 10^3/uL (150-450)
[2025-05-18 06:05] LABS: CALCIUM LEVEL 8.5 MG/DL (8.5-10.1); CARBON DIOXIDE LEVEL 25.0 MMOL/L (20-31); CHLORIDE LEVEL 101.0 MMOL/L (98-107); CREATININE FOR GFR 0.84 MG/DL (0.55-1.30); GLOMERULAR FILTRATION RATE 88.9 (>58); POTASSIUM SERUM 4.4 MMOL/L (3.5-5.1); SODIUM LEVEL 136.0 MMOL/L (136-145)
[2025-05-18] MEDS ORDERED: SYMB16INH INH (12:03)
[2025-05-18] MEDS ORDERED: AMLO1TAB25 PO (12:03)
[2025-05-18] MEDS ORDERED: PRED20TA PO (12:03)
[2025-05-18] MEDS ORDERED: AZIT-12 PO (12:03)
[2025-05-18] MEDS ORDERED: OXYC-517 PO (12:03)
[2025-05-18] MEDS ORDERED: ONDA-282 PO (12:47)
== END 2025-05-18 13:40 | disposition home health service (06) | DRG 141 ==
LOC: M ED 15:13 → M ED INP 15:14 → M PCU 05-16 00:06 → OBSVTOIN 05-17 12:52
PROVIDERS: ADMIT Student in an Organized Health Care Education/Training Program; ATTEND Student in an Organized Health Care Education/Training Program
DX: J45.901 Unspecified asthma with (acute) exacerbation (principal); J44.1 Chronic obstructive pulmonary disease with (acute) exacerbation; I10 Essential (primary) hypertension; J45.909 Unspecified asthma, uncomplicated; G47.00 Insomnia, unspecified; F41.9 Anxiety disorder, unspecified; G47.33 Obstructive sleep apnea (adult) (pediatric); Z98.2 Presence of cerebrospinal fluid drainage device; G93.2 Benign intracranial hypertension; F17.200 Nicotine dependence, unspecified, uncomplicated; I16.0 Hypertensive urgency; Z79.899 Other long term (current) drug therapy; Z88.8 Allergy status to other drugs, medicaments and biological substances; B97.89 Other viral agents as the cause of diseases classified elsewhere; Z91.011 Allergy to milk products

== ENCOUNTER → 2025-07-01 | Outpatient (CLI) | payer MEDICAID ==
[~2025-07-01] MED LIST changes: +ALBU2.5V10 INH; +AMLO1TAB25 PO; +AZIT-12 PO; +FURO40TA2 PO; +MED REC COMMENT; +OXYC-517 PO; +SYMB16INH INH; +TRAZ-252 PO
[2025-07-01 12:27] LABS: BASO # 0.0 10^3/uL (0.0-0.2); BASO % 0.3 % (0.0-1.0); EOS # 0.1 10^3/uL (0.0-0.5); EOS % 1.4 % (0.0-3.0); LYMPH # 3.4 10^3/uL (1.5-5.0); LYMPH % 39.4 % (24.0-44.0); MONO # 0.6 10^3/uL (0.0-0.8); MONO % 7.0 % (2.0-8.0); NEUTROPHILS # 4.5 10^3/uL (1.5-8.5); NEUTROPHILS % 51.8 % (36.0-66.0); PLATELET COUNT, AUTOMATED 379 10^3/uL (150-450)
[2025-07-01 12:39] LABS: ALT/SGPT 18 U/L (7.0-40); AST/SGOT 19 U/L (<34); CALCIUM LEVEL 8.8 MG/DL (8.5-10.1); CARBON DIOXIDE LEVEL 28 MMOL/L (20-31); CHLORIDE LEVEL 109 MMOL/L (98-107); CHOLESTEROL LEVEL 259 MG/DL (<200); CHOLESTEROL RISK RATIO 5.39 (<5); CREATININE FOR GFR 0.83 MG/DL (0.55-1.30); GLOMERULAR FILTRATION RATE > 90.0 (>58); LDL CHOLESTEROL 195.2 MG/DL (<100); NON-HDL-C 211.0 MG/DL; POTASSIUM SERUM 4.2 MMOL/L (3.5-5.1); SODIUM LEVEL 142 MMOL/L (136-145); TRIGLYCERIDES LEVEL 79 MG/DL (<150)
[2025-07-01 13:07] LABS: ESTIMATED AVERAGE GLUCOSE 146.0 MG/DL (60-110)
== END ==
LOC: M LAB 10:28
PROVIDERS: ATTEND Nurse Practitioner Family
DX: D72.829 Elevated white blood cell count, unspecified (principal); R69 Illness, unspecified; E78.2 Mixed hyperlipidemia; R73.9 Hyperglycemia, unspecified; E66.9 Obesity, unspecified; Z68.41 Body mass index [BMI] 40.0-44.9, adult; E87.6 Hypokalemia